=== PATIENT | female | born 1940 | race Caucasian/White ===

== ENCOUNTER 2023-03-28 14:35 | Emergency (ER) | payer MEDICARE, BC, SELFPAY ==
[2023-03-28 14:39] VITALS: BP 193/66; BMI 23.4
[2023-03-28 14:42] VITALS: BP 193/66
[2023-03-28 14:54] LABS: % Basophils 0.7 % (0-2); % Eosinophils 3.8 % (0-6); % Immature Granulocytes 0.3 % (0-0.5); % Lymphocytes 20.6 % (20.5-51.1); % Monocytes 9.7 % (1.7-9.3); % Neutrophils 64.9 % (42.2-75.2); Absolute Basophils 0.1 10^3/uL (0-0.2); Absolute Eosinophils 0.3 10^3/uL (0-0.7); Absolute Lymphocytes 1.5 10^3/uL (1.2-3.4); Absolute Monocytes 0.7 10^3/uL (0.1-0.6); Absolute Neutrophils 4.6 10^3/uL (1.4-6.5); Hematocrit 42.1 % (37.0-47.0); Hemoglobin 14.1 g/dL (12.0-16.0); Mean Corp Hgb Conc. 33.5 g/dL (33.0-37.0); Mean Corpuscular Hgb 33.8 pg (27.0-31.0); Nucleated Red Blood Cells % 0 %; Platelet Count 173 10^3/uL (130-400); Red Blood Cell Count 4.17 10^6/uL (4.20-5.40); Red Cell Dist. Width 12.7 % (11.5-14.5); White Blood Cell Count 7.1 10^3/uL (4.8-10.8)
[2023-03-28 15:00] VITALS: BP 189/85
[2023-03-28 15:08] LABS: ALT (SGPT) 14 U/L (0-35); AST (SGOT) 30 U/L (14-36); Albumin 3.6 g/dl (3.5-5.0); Alkaline Phosphatase 88 U/L (38-126); Blood Urea Nitrogen 28 mg/dl (7-17); Carbon Dioxide 32 mmol/L (22-30); Chloride 105 mmol/L (98-107); Estimated Creatinine Clearance 49 ml/min; Glucose 90 mg/dl (70-99); Potassium 4.2 mmol/L (3.5-5.1); Sodium 137 mmol/L (135-145); Total Bilirubin 0.5 mg/dl (0.2-1.3); eGFR > 60.00
[2023-03-28 17:43] VITALS: BP 169/64
[2023-03-28 18:00] VITALS: BP 163/55
--- NOTE | 2023-03-28 18:18 | ED.GENMED ---
History of Present Illness
General
Chief Complaint: Fall
Source: patient and family
Exam Limitations: none
Time Seen by Provider: 03/28/23 16:13
Nursing documentation reviewed up to this point in time: agreed with
Travel History
Have you had any contact with someone who has COVID-19?: No
Do you have any symptoms of coronavirus? Fever > 100 degrees, chills, cough, shortness of breath, sore throat, loss of taste or smell, muscle aches, or headache?: No
History of Present Illness
History of Present Illness:
83-year-old female past medical history of dementia, A-fib currently on Eliquis, hypertension presenting to the emergency department today after a fall. She is not able to explain the event or explain how she fell. This was not specifically
witnessed. She denies any specific awareness of any dizziness lightheadedness or loss of consciousness. She does not believe she hit her head and denies any current pain. Apparently did complain of some mild back pain initially but no longer has
ongoing discomfort.
Past History
Past History
ED Past Medical History: Arrthythmia and HTN
ED Past Surgical History: Cardiac, Gynecological and Orthopedic
Social History
Tobacco: Non-smoker
Alcohol: None
Drug: None
Personal:
Living: with family
Review of Systems
Review of Systems
Allergies reviewed?: Yes
All Other Systems: ROS reviewed and negative except as documented in HPI and ROS
Phy Exam
Physical Exam
Physical Exam:
GENERAL: Alert , in no apparent distress
EYE: pupils equal and reactive
NECK: Supple, no significant adenopathy.
ENT: o/p clr, mmm.
CARDIAC: Regular rate and rhythm .
LUNGS: Clear breath sounds bilaterally, no acute respiratory distress, no wheezes/rales/rhonchi
ABDOMEN: Soft, without focal tenderness, no r/g, no cvat
NEUROLOGICAL: Alert and oriented, no focal neuro deficits 5-5 upper and lower extremity strength normal sensation when palpating bilaterally normal finger-nose and [id number] no pronator
SKIN: Warm and dry, skin intact.
MUSCULOSKELETAL: No edema, well perfused.
PSYCH: Normal and appropriate interaction.
Course
Orders/Labs/Results
Orders:
Orders
03/28/23 14:45
Electrocardiogram (*1) Urgent
Reason for Study: Vertigo / Dizzy
03/28/23 14:46
EKG- Treatment ONCE
03/28/23 14:48
Complete Blood Count/With Diff Urgent
Comprehensive Metabolic Panel Urgent
03/28/23 15:48
Lumbar Spine, 2 or 3 View [CR Lumbar Spine 2 Or 3 Views] Urgent
Comment:
Reason For Exam: fall
03/28/23 17:00
CT Head W/o Iv Contrast Urgent
Comment:
Reason For Exam: fall hit head on eliquis
Abnormal Lab Results
03/28/23
14:48
RBC 4.17 L 10^6/uL
(4.20-5.40)
MCV 101.0 H fL
(81.0-99.0)
MCH 33.8 H pg
(27.0-31.0)
Absolute Monos (auto) 0.7 H 10^3/uL
(0.1-0.6)
Monocytes % 9.7 H %
(1.7-9.3)
Carbon Dioxide 32 H mmol/L
(22-30)
BUN 28 H mg/dl
(7-17)
Total Protein 6.0 L g/dl
(6.3-8.2)
03/28/23 14:48
03/28/23 14:48
Vital Signs
Initial and Last Documented VS:
Initial Vital Signs
Temp Pulse Resp BP Pulse Ox
97.9 F 59 13 193/66 94
03/28/23 14:39 03/28/23 14:39 03/28/23 14:39 03/28/23 14:39 03/28/23 14:39
Last Documented Vital Signs
Temp Pulse Resp BP Pulse Ox
97.9 F 51 24 189/85 94
03/28/23 14:39 03/28/23 15:45 03/28/23 15:45 03/28/23 15:00 03/28/23 15:45
MDM/Problems Addressed
MDM/Problems Addressed:
83-year-old female presenting to the emergency department today with concerns of a fall prior to arrival. Initially complained of low back pain but during my examination no concerns. Is on Eliquis for A-fib. No obvious signs of trauma to the head
but CT scan was ordered for further assessment. Labs are unremarkable other than elevated BUN to creatinine ratio. She was able to tolerate by mouth and something to drink. X-ray of the lumbar spine without acute fracture. EKG not emergent. CT
head resulted without emergent findings. Patient without obvious emergent injury stable for outpatient management return precautions given.
*Critical Care Note
Total Time (30-74mins, 75-104mins- exclusive of procedures): Not Applicable
ED Attending Note
-
Portions of this chart may have been created with voice recognition software.� Occasional wrong word or��sound alike� substitutions may have occurred due to the inherent limitations of voice recognition software.
Discharge Plan
Departure
Patient Disposition: Home (Routine Discharge)
Date of Disposition: 03/28/23
Time of Disposition: 18:46
Patient with high blood pressure during this ER visit?: No
Condition: Good
Covid-19: Not Applicable
Discharge Problem:
Fall
Instructions: Preventing falls in adults
Prescriptions:
No Action
amlodipine 5 MG tablet
5 mg PO DAILY
nkthhlhc-lvi-obek-FA-vit K-lut [Centrum Silver Women] 1 EACH tablet
1 ea PO DAILY
tramadol 50 MG tablet
50 mg PO Q6HPRN PRN (Reason: moderate pain)
docusate sodium 100 MG capsule
100 mg PO BID 0RF
prednisone 10 MG tablet
10 mg PO .TAPER Qty: 10 0RF
Rx Instructions:
Take 40mg daily x1days, 30mg daily x1days,
20mg daily x1days, 10mg daily x1days.
Referrals:
Arnold Mchugh MD [Family Provider] -
Activity Restrictions/Additional Instructions:
You came to the emergency department today after a fall. Here you had a CT scan without emergent findings and labs that were unremarkable. You also had an x-ray of your low back that did not show emergent findings. Return to emergency department
for any worsening, new or concerning symptoms.
Interventions
Interventions:
*Risk Screen - Suicide Last Done: 03/28/23 14:39
*General Assessment Last Done: 03/28/23 14:39
*Neglect/Abuse Screening Last Done: 03/28/23 14:39
ED- Fall Risk Assessment Last Done: 03/28/23 14:46
*ED COVID-19 Vaccine History Last Done: 03/28/23 14:39
ED-Musculoskeletal Assessment Last Done: 03/28/23 14:46
ED- Neurological Assessment Last Done: 03/28/23 14:46
ED-Skin Assessment Last Done: 03/28/23 14:46
== END 2023-03-28 19:51 | disposition home or self-care (01) ==
LOC: EMR 14:35
PROVIDERS: Emergency Medicine; EMERGENCY PHYSICIAN Emergency Medicine; FAMILY PHYSICIAN Family Medicine
DX: M54.9 Dorsalgia, unspecified (principal); W19.XXXA Unspecified fall, initial encounter; Y92.129 Unspecified place in nursing home as the place of occurrence of the external cause; R42 Dizziness and giddiness; I48.91 Unspecified atrial fibrillation; Z79.01 Long term (current) use of anticoagulants; F03.90 Unspecified dementia, unspecified severity, without behavioral disturbance, psychotic disturbance, mood disturbance, and anxiety
CPT/HCPCS: 99285; 70450; 72100; 80053; 85025; 93005

== ENCOUNTER → 2023-07-15 09:00 | Outpatient (REF) | payer MEDICARE, BC, SELFPAY ==
[2023-07-16 11:45] LABS: Urine Albumin Trace (Neg - Trace); Urine Bilirubin Negative (Negative); Urine Character Slightly Cloudy (Clear); Urine Color Yellow; Urine Glucose Negative (Negative); Urine Ketone Trace (Negative); Urine Leukocyte Trace (Negative); Urine Nitrite Negative (Negative); Urine Occult Blood Negative (Negative); Urine Specific Gravity 1.025 (<1.030); Urine Urobilinogen Negative (Neg - 1+)
[2023-07-16 12:00] LABS: Urine Calcium Oxalate Crystals Present; Urine Squamous Cell 26-30 /LPF (Few)
[2023-07-16 12:01] LABS: Urine Bacteria Few (Negative)
[2023-07-16 12:02] LABS: Urine Red Blood Cell 0-2 /HPF (0-2)
== END ==
LOC: OLABLV 09:00
PROVIDERS: ATTENDING PHYSICIAN Family Medicine
DX: N39.0 Urinary tract infection, site not specified (principal)
CPT/HCPCS: 36415; 81003; 81015; 87086

== ENCOUNTER → 2023-08-10 15:00 | Outpatient (REF) | payer MEDICARE, BC, SELFPAY ==
[2023-08-11 12:46] LABS: Urine Albumin Trace (Neg - Trace); Urine Bilirubin Negative (Negative); Urine Character Clear (Clear); Urine Color Yellow; Urine Glucose Negative (Negative); Urine Ketone Trace (Negative); Urine Leukocyte Trace (Negative); Urine Nitrite Negative (Negative); Urine Occult Blood Negative (Negative); Urine Urobilinogen Negative (Neg - 1+)
[2023-08-11 13:55] LABS: Urine Calcium Oxalate Crystals Seen; Urine Mucus Moderate
[2023-08-11 13:57] LABS: Urine Bacteria Moderate (Negative); Urine Red Blood Cell 0-2 /HPF (0-2)
[2023-08-11 13:58] LABS: Urine Squamous Cell 21-25 /LPF (Few)
== END ==
LOC: OLABLV 15:00
PROVIDERS: ATTENDING PHYSICIAN Family Medicine
DX: R35.0 Frequency of micturition (principal)
CPT/HCPCS: 81003; 81015; 87086

== ENCOUNTER 2023-08-22 23:16 | Emergency (ER) | payer MEDICARE, BC, SELFPAY ==
[2023-08-22 23:20] VITALS: BP 192/92
--- NOTE | 2023-08-23 00:21 | ED.GENMED ---
History of Present Illness
General
Chief Complaint: Fall
Time Seen by Provider: 08/23/23 00:17
History of Present Illness
History of Present Illness:
HPI: The patient came in from alf facility for evaluation after an unwitnessed fall. She is is reportedly at her baseline mental status. She is reportedly at baseline mental status. The patient has no specific complaints.
EXAM:
GENERAL: Well appearing in no distress
CERVICAL SPINE: No midline c-spine tenderness with excellent AROM
HEAD: No evidence of craniofacial trauma
CHEST: No chest wall tenderness, normal heart sounds
LUNGS: Equal lung sounds, no respiratory distress
ABDOMEN: No abdominal tenderness, no peritoneal signs
EXTREMITIES: Normal active range of motion, no tenderness however there does appear to be some decreased active range of motion at the left shoulder but there is no bony tenderness to palpation, there is no pain with passive range of motion of the
hips
NEURO: Fair strength all extremities, appears to have cognitive communication deficit
TIME OF INITIAL ENCOUNTER: 12:20 AM
NUMBER AND COMPLEXITY OF PROBLEMS ADDRESSED AT THE ENCOUNTER
� Chronic conditions affecting care: A-fib on Eliquis, high blood pressure
� Acute Exacerbation and/or Progression of Chronic Illness: This is an acute problem
� Differential Diagnosis includes: Fall without injury, minor head injury, intracranial hemorrhage, doubt fracture based on physical examination
AMOUNT AND/OR COMPLEXITY OF DATA TO BE REVIEWED AND ANALYZED
� I performed an independent evaluation of and my interpretation is:
EKG:
CT: CT imaging reviewed, cochlear implant noted leading to streak artifact however otherwise there is no definite intracranial hemorrhage
X-rays:
Laboratory Studies: Not indicated
Other:
� Review of other/old records: The patient was also seen here 5 months ago after a fall
� Clinical information was obtained by an independent historian: I spoke to the charge nurse who spoke to EMS he received report from [facility]
� Prescriptions/Medications Considered but not given:
� Further testing considered but not performed: Considered x-rays however the patient has fairly good active range of motion with no bony tenderness of the extremities
RISK OF COMPLICATIONS AND/OR MORBIDITY OR MORTALITY OF PATIENT MANAGEMENT
� Social determinants of health affecting care: Resides at a alf facility
� Discussion with other providers: None needed
� Escalation of care including admission/observation vs risk of discharge considered: Given patient's age along with being on Eliquis and the fact that she is a poor historian, CT imaging of the brain is obtained which was
unremarkable. On reassessment at 1:50 AM, there is been no change in clinical status.
Past History
Past History
ED Past Medical History: Arrthythmia and HTN
ED Past Surgical History: Cardiac, Gynecological and Orthopedic
Social History
Tobacco: Non-smoker
Alcohol: None
Drug: None
Personal:
Living: with family
Phy Exam
Physical Exam
Physical Exam:
See HPI
Course
Orders/Labs/Results
Orders:
Orders
08/23/23 00:21
CT Head W/o Iv Contrast Urgent
Comment:
Reason For Exam: georgemihaela, poor historian, ?head injury
Vital Signs
Initial and Last Documented VS:
Initial Vital Signs
Temp Pulse Resp BP Pulse Ox
97.5 F 78 12 192/92 97
08/22/23 23:20 08/22/23 23:20 08/22/23 23:20 08/22/23 23:20 08/22/23 23:20
Last Documented Vital Signs
Temp Pulse Resp BP Pulse Ox
97.5 F 71 13 192/92 97
08/22/23 23:20 08/23/23 01:15 08/23/23 01:15 08/22/23 23:20 08/22/23 23:20
*Critical Care Note
Total Time (30-74mins, 75-104mins- exclusive of procedures): Not Applicable
ED Attending Note
-
Portions of this chart may have been created with voice recognition software.� Occasional wrong word or��sound alike� substitutions may have occurred due to the inherent limitations of voice recognition software.
Discharge Plan
Departure
Patient Disposition: Home (Routine Discharge)
Date of Disposition: 08/23/23
Time of Disposition: 01:44
Patient with high blood pressure during this ER visit?: Yes
Discharge Problem:
Fall
Instructions: BLOOD PRESSURE
Prescriptions:
No Action
amlodipine 5 MG tablet
5 mg PO DAILY
fwyjnmpt-yyp-qdfy-FA-vit K-lut [Centrum Silver Women] 1 EACH tablet
1 ea PO DAILY
tramadol 50 MG tablet
50 mg PO Q6HPRN PRN (Reason: moderate pain)
docusate sodium 100 MG capsule
100 mg PO BID 0RF
prednisone 10 MG tablet
10 mg PO .TAPER Qty: 10 0RF
Rx Instructions:
Take 40mg daily x1days, 30mg daily x1days,
20mg daily x1days, 10mg daily x1days.
Referrals:
Arnold Mchugh MD [Family Provider] -
Activity Restrictions/Additional Instructions:
As there was a fall on a blood thinner, CAT scan of the brain was obtained�this shows no sign of bleeding. Blood pressure was high at 192/92�I recommend repeat blood pressure check. Follow-up with primary care doctor.
Interventions
Interventions:
*Risk Screen - Suicide Last Done: 08/22/23 23:20
*General Assessment Last Done: 08/22/23 23:20
*Neglect/Abuse Screening Last Done: 08/22/23 23:20
ED- Fall Risk Assessment Last Done: 08/23/23 01:27
*ED COVID-19 Vaccine History Last Done: 08/22/23 23:20
ED-Musculoskeletal Assessment Last Done: 08/22/23 23:55
ED- Neurological Assessment Last Done: 08/22/23 23:40
ED-Skin Assessment Last Done: 08/23/23 01:26
Discharge Date and Time
Print Language: KIS[place]HILI
[2023-08-23 03:05] VITALS: BP 172/75
== END 2023-08-23 03:25 | disposition home or self-care (01) ==
LOC: EMR 23:16
PROVIDERS: EMERGENCY PHYSICIAN Emergency Medicine; FAMILY PHYSICIAN Family Medicine
DX: S09.90XA Unspecified injury of head, initial encounter (principal); W19.XXXA Unspecified fall, initial encounter; I10 Essential (primary) hypertension; I48.91 Unspecified atrial fibrillation; Z79.01 Long term (current) use of anticoagulants
CPT/HCPCS: 99284; 70450

== ENCOUNTER → 2023-08-24 15:00 | Outpatient (REF) | payer MEDICARE, BC, SELFPAY ==
[2023-08-25 11:17] LABS: Urine Albumin Negative (Neg - Trace); Urine Bilirubin Negative (Negative); Urine Character Clear (Clear); Urine Color Yellow; Urine Glucose Negative (Negative); Urine Ketone Trace (Negative); Urine Leukocyte Trace (Negative); Urine Nitrite Negative (Negative); Urine Occult Blood Negative (Negative); Urine Specific Gravity 1.025 (<1.030); Urine Urobilinogen Negative (Neg - 1+)
[2023-08-25 12:06] LABS: Urine Calcium Oxalate Crystals Present
[2023-08-25 12:07] LABS: Urine Bacteria Few (Negative); Urine Red Blood Cell 0-2 /HPF (0-2)
== END ==
LOC: OLABLV 15:00
PROVIDERS: ATTENDING PHYSICIAN Nurse Practitioner Family
DX: N39.0 Urinary tract infection, site not specified (principal)
CPT/HCPCS: 81003; 81015; 87086

== ENCOUNTER 2023-09-04 19:44 | Emergency (ER) | payer MEDICARE, BC, SELFPAY ==
[2023-09-04 19:51] VITALS: BP 179/63
[2023-09-04 20:00] VITALS: BP 165/67; BP 179/63
[2023-09-04 21:00] VITALS: BP 141/57
[2023-09-04 21:50] LABS: % Basophils 0.8 % (0-2); % Eosinophils 2.3 % (0-6); % Immature Granulocytes 0.1 % (0-0.5); % Lymphocytes 23.9 % (20.5-51.1); % Monocytes 11.3 % (1.7-9.3); % Neutrophils 61.6 % (42.2-75.2); Absolute Basophils 0.1 10^3/uL (0-0.2); Absolute Eosinophils 0.2 10^3/uL (0-0.7); Absolute Lymphocytes 1.8 10^3/uL (1.2-3.4); Absolute Monocytes 0.9 10^3/uL (0.1-0.6); Absolute Neutrophils 4.7 10^3/uL (1.4-6.5); Hematocrit 38.4 % (37.0-47.0); Hemoglobin 13.1 g/dL (12.0-16.0); Mean Corp Hgb Conc. 34.1 g/dL (33.0-37.0); Mean Corpuscular Volume 102.7 fL (81.0-99.0); Mean Platelet Volume 9.7 fL (7.4-10.4); Nucleated Red Blood Cells % 0 %; Platelet Count 173 10^3/uL (130-400); Red Blood Cell Count 3.74 10^6/uL (4.20-5.40); Red Cell Dist. Width 12.8 % (11.5-14.5); White Blood Cell Count 7.5 10^3/uL (4.8-10.8)
[2023-09-04 22:17] LABS: Blood Urea Nitrogen 24 mg/dl (7-17); Calcium 9.2 mg/dl (8.4-10.2); Carbon Dioxide 30 mmol/L (22-30); Chloride 103 mmol/L (98-107); Creatine Phosphokinase 58 U/L (30-135); Estimated Creatinine Clearance 38 ml/min; Glucose 90 mg/dl (70-99); Potassium 4.2 mmol/L (3.5-5.1); Sodium 138 mmol/L (135-145); eGFR > 60.00
--- NOTE | 2023-09-04 22:57 | ED.GENMED ---
History of Present Illness
General
Chief Complaint: Fall
Source: patient
Exam Limitations: none
Time Seen by Provider: 09/04/23 20:14
Nursing documentation reviewed up to this point in time: agreed with
History of Present Illness
History of Present Illness:
83-year-old female with past ministry of A-fib currently on Eliquis as well as hypertension presenting to the emergency department from her nursing facility after multiple falls may have hit her head was found to the ground today and may have been
on the ground for an hour. She denies any additional concerns at this point. No additional symptoms.
Past History
Past History
ED Past Medical History: Arrthythmia and HTN
ED Past Surgical History: Cardiac, Gynecological and Orthopedic
Social History
Tobacco: Non-smoker
Alcohol: None
Drug: None
Personal:
Living: with family
Review of Systems
Review of Systems
Allergies reviewed?: Yes
All Other Systems: ROS reviewed and negative except as documented in HPI and ROS
Phy Exam
Physical Exam
Physical Exam:
GENERAL: Alert , in no apparent distress
EYE: pupils equal and reactive
NECK: Supple, no significant adenopathy.
ENT: o/p clr, mmm.
CARDIAC: Regular rate and rhythm .
LUNGS: Clear breath sounds bilaterally, no acute respiratory distress, no wheezes/rales/rhonchi
ABDOMEN: Soft, without focal tenderness, no r/g, no cvat
NEUROLOGICAL: Alert and oriented, no focal neuro deficits
SKIN: Warm and dry, skin intact.
MUSCULOSKELETAL: No edema, well perfused.
PSYCH: Normal and appropriate interaction.
Course
Orders/Labs/Results
Orders:
Orders
09/04/23 21:21
CT Head W/o Iv Contrast Urgent
Comment:
Reason For Exam: fall hit head
09/04/23 21:37
BMP [Basic Metabolic Panel] Urgent
CBC/With Diff [Complete Blood Count/With Diff] Urgent
Creatine Phosphokinase Urgent
Abnormal Lab Results
09/04/23
21:37
RBC 3.74 L 10^6/uL
(4.20-5.40)
MCV 102.7 H fL
(81.0-99.0)
MCH 35.0 H pg
(27.0-31.0)
Absolute Monos (auto) 0.9 H 10^3/uL
(0.1-0.6)
Monocytes % 11.3 H %
(1.7-9.3)
BUN 24 H mg/dl
(7-17)
09/04/23 21:37
09/04/23 21:37
Vital Signs
Initial and Last Documented VS:
Initial Vital Signs
Pulse Resp BP
66 27 179/63
09/04/23 19:51 09/04/23 19:51 09/04/23 19:51
Last Documented Vital Signs
Temp Pulse Resp BP Pulse Ox
97.6 F 63 22 141/57 94
09/04/23 20:00 09/04/23 22:30 09/04/23 22:30 09/04/23 21:00 09/04/23 22:01
MDM/Problems Addressed
MDM/Problems Addressed:
84-year-old female presenting to the emergency department after a few falls at her nursing facility. She has known ambulatory dysfunction and is supposed to be escorted when walking but has been walking on her own. She denies any specific
complaints upon arrival to the ER. She may have hit her head CT scan was ordered and did not show any emergent findings. Labs without emergent findings as well stable for discharge at this time return precautions given.
*Critical Care Note
Total Time (30-74mins, 75-104mins- exclusive of procedures): Not Applicable
ED Attending Note
-
Portions of this chart may have been created with voice recognition software.� Occasional wrong word or��sound alike� substitutions may have occurred due to the inherent limitations of voice recognition software.
Discharge Plan
Departure
Patient Disposition: Home (Routine Discharge)
Date of Disposition: 09/04/23
Time of Disposition: 22:59
Patient with high blood pressure during this ER visit?: No
Condition: Good
Covid-19: Not Applicable
Discharge Problem:
Fall
Instructions: Preventing falls in adults
Prescriptions:
No Action
amlodipine 5 MG tablet
5 mg PO DAILY
kyuiansn-vze-zfnk-FA-vit K-lut [Centrum Silver Women] 1 EACH tablet
1 ea PO DAILY
tramadol 50 MG tablet
50 mg PO Q6HPRN PRN (Reason: moderate pain)
docusate sodium 100 MG capsule
100 mg PO BID 0RF
prednisone 10 MG tablet
10 mg PO .TAPER Qty: 10 0RF
Rx Instructions:
Take 40mg daily x1days, 30mg daily x1days,
20mg daily x1days, 10mg daily x1days.
Eliquis 5 mg Tablet
5 mg PO BID
Referrals:
Arnold Mchugh MD [Family Provider] -
Activity Restrictions/Additional Instructions:
You came to the emergency department today with concerns of multiple falls. Here you to reassuring assessment. Return to the emergency department for any worsening, new or concerning symptoms.
Interventions
Interventions:
*Risk Screen - Suicide Last Done: 09/04/23 19:48
*General Assessment Last Done: 09/04/23 19:48
*Neglect/Abuse Screening Last Done: 09/04/23 19:48
ED- Fall Risk Assessment Last Done: 09/04/23 19:50
*ED COVID-19 Vaccine History Last Done: 09/04/23 19:48
ED-Musculoskeletal Assessment Last Done: 09/04/23 19:50
ED- Neurological Assessment Last Done: 09/04/23 19:50
ED-Skin Assessment Last Done: 09/04/23 19:50
Discharge Date and Time
Print Language: TAMAZIGHT
[2023-09-04 23:20] VITALS: BP 146/64
== END 2023-09-04 23:25 | disposition home or self-care (01) ==
LOC: EMR 19:44
PROVIDERS: Physician Assistant; EMERGENCY PHYSICIAN Emergency Medicine; FAMILY PHYSICIAN Family Medicine
DX: S09.90XA Unspecified injury of head, initial encounter (principal); W19.XXXA Unspecified fall, initial encounter; I10 Essential (primary) hypertension; I48.91 Unspecified atrial fibrillation; R29.6 Repeated falls; Z79.01 Long term (current) use of anticoagulants
CPT/HCPCS: 99284; 70450; 80048; 82550; 85025

== ENCOUNTER 2023-09-17 20:42 | Emergency (ER) | payer MEDICARE, BC, SELFPAY ==
[2023-09-17 20:43] VITALS: BP 186/66
[2023-09-17 20:47] VITALS: BP 186/66
[2023-09-17 21:00] VITALS: BP 165/65
--- NOTE | 2023-09-17 21:36 | ED.GENMED ---
History of Present Illness
General
Chief Complaint: Fall
Source: records
Exam Limitations: dementia
Time Seen by Provider: 09/17/23 20:58
History of Present Illness
History of Present Illness:
Unwitnessed fall. Found on the floor. Patient is unsure what happened and has no complaints. No physical findings noticed by the staff or nursing staff. Here for evaluation. Is on Eliquis
Past History
Past History
ED Past Medical History: Arrthythmia and HTN
ED Past Surgical History: Cardiac, Gynecological and Orthopedic
Social History
Tobacco: Non-smoker
Alcohol: None
Drug: None
Personal:
Living: with family
Review of Systems
Review of Systems
Unable to obtain full review of systems at this time due to: dementia
All Other Systems: Not applicable
Phy Exam
Physical Exam
Physical Exam:
TRAUMA EXAM:
VITAL SIGNS: Vital signs reviewed, cooperative
DISTRESS: No active disease
EYES: Pupils reactive, no orbital trauma
NOSE: No deformity or epistaxis
FACE AND SCALP: No scalp or facial trauma, external canals no blood
NECK: Supple nontender
BACK: Back nontender, pelvis stable to compression
RESPIRATORY: No distress, breath sounds normal, no tender chest wall
CARDIAC: No murmur, pulses equal and strong
ABDOMEN: Soft nontender bowel sounds normal
SKIN: Skin intact no bleeding, color normal
EXTREMITIES: Nontender
NEUROLOGICAL: Alert, oriented x 1, no motor deficits
PSYCH: Mood affect normal
Course
Orders/Labs/Results
Orders:
Orders
09/17/23 21:06
CT Head W/o Iv Contrast Urgent
Comment:
Reason For Exam: Fall. Anticoagulated
Cardiac Monitoring- Treatment ONCE
Vital Signs
Initial and Last Documented VS:
Initial Vital Signs
Temp Pulse Resp BP Pulse Ox
97.6 F 58 24 186/66 90
09/17/23 20:43 09/17/23 20:43 09/17/23 20:43 09/17/23 20:43 09/17/23 20:43
Last Documented Vital Signs
Temp Pulse Resp BP Pulse Ox
97.6 F 66 16 186/66 95
09/17/23 20:43 09/17/23 20:47 09/17/23 20:47 09/17/23 20:47 09/17/23 20:47
MDM/Problems Addressed
Differential Diagnosis Includes:
Nothing to support any acute medical trauma or issue. CT was done as this was an unknown fall and patient is on Eliquis. Stable for discharge
*Radiology
Radiology exam reviewed: preliminary read by ED provider (neg) and radiology read reviewed (neg)
*Critical Care Note
Total Time (30-74mins, 75-104mins- exclusive of procedures): Not Applicable
Data Reviewed
Review of Other/Old Records Reveals: Labs and Testing
Update Note
Update Note:
Patient's daughter updated. Remained stable. No findings to support any significant trauma. Regular rate and rhythm.
ED Attending Note
-
Portions of this chart may have been created with voice recognition software.� Occasional wrong word or��sound alike� substitutions may have occurred due to the inherent limitations of voice recognition software.
Discharge Plan
Departure
Patient Disposition: Home (Routine Discharge)
Date of Disposition: 09/17/23
Time of Disposition: 21:39
Patient with high blood pressure during this ER visit?: Yes
Discharge Problem:
Unwitnessed fall, Potential head injury
Instructions: Head Injury in Adults (DC), Preventing falls in adults, BLOOD PRESSURE
Prescriptions:
No Action
tramadol 50 MG tablet
50 mg PO Q8HPRN PRN (Reason: moderate pain)
quetiapine 25 mg Tablet
25 mg PO DAILY
haloperidol 0.5 mg Tablet
0.5 mg PO DAILY@1400
haloperidol 0.5 mg Tablet
0.5 mg PO DAILYPRN PRN (Reason: agitation/combativness/acute uti)
acetaminophen 325 mg Tablet
650 mg PO Q8HPRN PRN (Reason: mild pain)
acetaminophen 500 mg Tablet
1,000 mg PO DAILY
escitalopram oxalate 20 mg tablet
20 mg PO DAILY
metoprolol tartrate 25 mg Tablet
25 mg PO BID
multivitamin with folic acid [Therems Multivitamin] 400 mcg Tablet
1 tab PO DAILY
apixaban 2.5 mg Tablet
2.5 mg PO BID
Activity Restrictions/Additional Instructions:
Follow-up with her physician in 2 to 3 days
Return with any concerning symptoms including vomiting chest pain abdominal pain or any other concerning symptoms
Interventions
Interventions:
*Risk Screen - Suicide Last Done: 09/17/23 20:43
*General Assessment Last Done: 09/17/23 20:43
*Neglect/Abuse Screening Last Done: 09/17/23 20:43
ED- Fall Risk Assessment Last Done: 09/17/23 20:43
*ED COVID-19 Vaccine History Last Done: 09/17/23 20:43
ED-Musculoskeletal Assessment Last Done: 09/17/23 20:52
ED- Neurological Assessment Last Done: 09/17/23 20:51
ED-Skin Assessment Last Done: 09/17/23 20:52
Discharge Date and Time
Print Language: AMERICAN
== END 2023-09-18 00:09 | disposition home or self-care (01) ==
LOC: EMR 20:42
PROVIDERS: EMERGENCY PHYSICIAN Emergency Medicine; FAMILY PHYSICIAN Family Medicine
DX: S09.90XA Unspecified injury of head, initial encounter (principal); W19.XXXA Unspecified fall, initial encounter; I10 Essential (primary) hypertension; Z79.01 Long term (current) use of anticoagulants
CPT/HCPCS: 99284; 70450

== ENCOUNTER 2023-09-21 21:10 | Emergency (ER) | payer MEDICARE, BC, SELFPAY ==
[2023-09-21 21:11] VITALS: BP 172/80
--- NOTE | 2023-09-21 22:59 | ED.GENMED ---
History of Present Illness
<JAYY Hernandez (Lenka) - Last Filed: 09/22/23 02:59>
General
Chief Complaint: Fall
Source: patient and family (daughter (Nia))
Exam Limitations: dementia
Time Seen by Provider: 09/21/23 22:38
Nursing documentation reviewed up to this point in time: agreed with
History of Present Illness
History of Present Illness:
Pt is an 83 yo female with PMHx of dementia, HTN, AFib on eliquis, and renal failure who presents to the ED with daughter, Nia, after an unwitnessed fall at [address] [facility]. 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
patient responsive, but on the ground in her room, unknown for how long. Earlier this morning prior to 1200, pt experienced a witnessed mechanical fall with staff where she landed on her backside. Daughter notes that patient is at baseline mental
status, no obvious changes to level of consciousness. Pt given dose of Haldol prior to arrival in the ED. Patient complained to daughter of R thumb pain, thumb noticeably swollen and bruised compared to L thumb. Daughter also notes large bruise to
left hip and 'goose egg' lump that is not usually there, pt noting pain to L hip. Pt denies chest pain, difficulty breathing, abdominal pain. Daughter denies known fevers, recent sickness, or problems with urination.
Of note - recent unwitnessed falls on 09/17/23, 09/04/23, and 08/23/23, all with negative findings on CT.
Pt recently started on Haldol PRN for nighttime agitation 2-3 weeks ago.
Daughter has noticed pt's ambulation and balance have declined over the past 3 weeks, to the point where she struggles to use a walker.
Pt has a history of elopement and desire to be independent, pt often refuses to use mobility devices, resulting in mechanical falls.
Past History
<JAYY Hernandez (Lenka) - Last Filed: 09/22/23 02:59>
Past History
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
ED Past Surgical History: Cardiac (cardiac ablation), Gynecological (hysterectomy) and Orthopedic (L rotator cuff, B/L foot surgery)
Social History
Tobacco: Non-smoker
Alcohol: None
Drug: None
Personal:
Living: long term
Family History
Family History: Other (noncontributory)
Phy Exam
<Lashay Tellez) JAYY Stern - Last Filed: 09/22/23 02:59>
General Physical Exam
General Presentation: no apparent distress
General age: appears stated age
General Skin: warm and dry
General Habitus: elderly
General Mental: confused and usual mental status
General Hydration: appears well hydrated
General Chronic Disability: demented
ENT Exam
ENT Exam: EOMI, TM's normal, neck supple and lymphnodes (nontender, not enlarged)
Eye Exam
Eye Exam: PERRL and EOMI
Cardiovascular Exam
Cardiovascular Exam: no edema, normal peripheral pulses and other
Pulmonary Exam
Pulmonary Exam: lungs clear, no respiratory distress, no rales, chest non tender, no rhonchi and no cough
Gastrointestinal Exam
Gastrointestinal Exam: normal bowel sounds, non tender, soft and non distended
Neurological Exam
Neurological Exam: confused
Osbaldo Coma Scale
Eye Opening: Spontaneous
Verbal Response: Confused
Motor Response: Localizes to Pain
GCS Total Score: 13
Mental
Mental Status: oriented to person, usual mental status and responds to voice
Cranial
EOM (CN3/4/6): intact
Motor
Seizure Activity: none
Skin Exam
Skin Exam: tenderness (to L hip, notable swelling and ecchymosis just inferior to L hip) and other (notable swelling and ecchymosis to R thumb from MCP to distal phalanx)
<Paul Rivera DO - Last Filed: 09/22/23 01:45>
Lenore Coma Scale
GCS Total Score: 13
Course
<JAYY Hernandez (Lenka) - Last Filed: 09/22/23 02:59>
Orders/Labs/Results
Orders:
Orders
09/21/23 23:03
CR Wrist - Right Min 3 Views Urgent
Comment:
Reason For Exam: fall
09/21/23 23:11
Hip, Left 2-3 Views [CR Hip - LT w/wo Pel 2-3 Vw*] Urgent
Comment:
Reason For Exam: fall
Include a pelvis x-ray?: Yes
09/21/23 23:54
CR Finger(s)/thumb Min 2 Vw Rt Urgent
Reason For Exam: pain
09/22/23 00:15
CT Head W/o Iv Contrast Urgent
Reason For Exam: fall, unknown head strike, dementia
CT Pelvis W/o Iv Contrast Urgent
Reason For Exam: left hip pain, likely fx
Vital Signs
Initial and Last Documented VS:
Initial Vital Signs
Temp Pulse Resp BP Pulse Ox
97.7 F 68 26 172/80 94
09/21/23 21:11 09/21/23 21:11 09/21/23 21:11 09/21/23 21:11 09/21/23 21:11
Last Documented Vital Signs
Temp Pulse Resp BP Pulse Ox
97.7 F 68 26 178/91 93
09/21/23 21:11 09/21/23 21:11 09/21/23 21:11 09/22/23 01:11 09/22/23 01:15
<Paul Rivera DO - Last Filed: 09/22/23 01:45>
Orders/Labs/Results
Orders:
Orders
09/21/23 23:03
CR Wrist - Right Min 3 Views Urgent
Comment:
Reason For Exam: fall
09/21/23 23:11
Hip, Left 2-3 Views [CR Hip - LT w/wo Pel 2-3 Vw*] Urgent
Comment:
Reason For Exam: fall
Include a pelvis x-ray?: Yes
09/21/23 23:54
CR Finger(s)/thumb Min 2 Vw Rt Urgent
Reason For Exam: pain
09/22/23 00:15
CT Head W/o Iv Contrast Urgent
Reason For Exam: fall, unknown head strike, dementia
CT Pelvis W/o Iv Contrast Urgent
Reason For Exam: left hip pain, likely fx
Vital Signs
Initial and Last Documented VS:
Initial Vital Signs
Temp Pulse Resp BP Pulse Ox
97.7 F 68 26 172/80 94
09/21/23 21:11 09/21/23 21:11 09/21/23 21:11 09/21/23 21:11 09/21/23 21:11
Last Documented Vital Signs
Temp Pulse Resp BP Pulse Ox
97.7 F 68 26 178/91 93
09/21/23 21:11 09/21/23 21:11 09/21/23 21:11 09/22/23 01:11 09/22/23 01:15
<JAYY Hernandez (Lenka) - Last Filed: 09/22/23 02:59>
MDM/Problems Addressed
Differential Diagnosis Includes:
83yo female with PMHx of dementia, HTN, and AFib on eliquis presenting for 2 falls today, 1 witnessed where patient landed on backside with possible new bruising and swelling near L hip, and 1 unwitnessed where patient was found on the floor at
1999. Pt now complaining of R thumb pain.
Pt started on haldol 2-3 weeks ago for agitation at long term, around the same time daughter noticed declined in walking abilities and balance. Pt with recent falls on 09/17/23, 09/04/23, and 08/23/23, all with negative CT head findings.
Plan to order head CT without contrast, XR of R hand, and XR of L hip.
Chronic conditions affecting care: Arrhythmia (on eliquis 2.5mg BID) and Psychiatric illness (dementia)
<JAYY Hernandez (Lenka) - Last Filed: 09/22/23 02:59>
*Critical Care Note
Total Time (30-74mins, 75-104mins- exclusive of procedures): Not Applicable
<Paul Rivera DO - Last Filed: 09/22/23 01:45>
Update Note
Update Note:
CT PELVIS WITHOUT CONTRAST
Comparison: None available
IMPRESSION:
6.1 x 4.6 cm subcutaneous hematoma in the lateral left hip soft tissues. Additional age indeterminate collection in the left upper buttock measuring approximately 9 x 2.5 cm, and may reflect additional hematoma versus sequela of prior trauma or
surgery.
Small ossification associated with lateral superior left acetabular osteophyte, age indeterminate (series 202, image 50). Otherwise, no evidence for acute fractures. No malalignment.
Hysterectomy. Colonic diverticulosis. Mild ectatic abdominal aorta.
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 Mild multilevel spondylolisthesis in the lumbar spine.
CT HEAD WITHOUT CONTRAST
Comparison: Head CT 09/17/2023
IMPRESSION:
Limited by streak artifacts from right scalp cochlear implant device.
Allowing for this, no definite evidence for acute intracranial hemorrhage.
Chronic encephalomalacia in the right occipital lobe. Moderate to severe chronic white matter disease.
ED Attending Note
<JAYY Hernandez (Lenka) - Last Filed: 09/22/23 02:59>
-
Portions of this chart may have been created with voice recognition software.� Occasional wrong word or��sound alike� substitutions may have occurred due to the inherent limitations of voice recognition software.
<Paul Rivera DO - Last Filed: 09/22/23 01:45>
ED Attending Note
Patient seen and examined by attending physician: Yes
I performed the substantive portion of visit, reviewed & personally made and approve the management plan that is documented in note by myself or DIEGO.: Yes
ED Attending Note:
Pleasant 83-year-old female presents from [place] after falling twice today. She landed on her left hip. Her only complaint is pain in her left thumb. Patient is on Eliquis but denies any head strike. Patient was seen in conjunction with the PA
student. I have reviewed and agree with the history and treatment plan presented. On my independent physical exam, patient is awake, and at baseline. Daughter states that she is deaf but able to read lips. Patient has a large hematoma to the
left hip. Normal hip rolling test. She is able to flex and extend the hip without issue. Right thumb is slightly deformed and painful to the touch. Good capillary refill.
Discharge Plan
Departure
Patient Disposition: Long-Term/SNF
Date of Disposition: 09/22/23
Time of Disposition: 01:42
Patient with high blood pressure during this ER visit?: Yes
Condition: Fair
Discharge Problem:
Hematoma, Fracture of thumb, Fall
Instructions: Preventing falls in adults, Finger Fracture ED, BLOOD PRESSURE, Contusion
Prescriptions:
No Action
tramadol 50 MG tablet
50 mg PO Q8HPRN PRN (Reason: moderate pain)
quetiapine 25 mg Tablet
25 mg PO DAILY
haloperidol 0.5 mg Tablet
0.5 mg PO DAILY@1400
haloperidol 0.5 mg Tablet
0.5 mg PO DAILYPRN PRN (Reason: agitation/combativness/acute uti)
acetaminophen 325 mg Tablet
650 mg PO Q8HPRN PRN (Reason: mild pain)
acetaminophen 500 mg Tablet
1,000 mg PO DAILY
escitalopram oxalate 20 mg tablet
20 mg PO DAILY
metoprolol tartrate 25 mg Tablet
25 mg PO BID
multivitamin with folic acid [Therems Multivitamin] 400 mcg Tablet
1 tab PO DAILY
apixaban 2.5 mg Tablet
2.5 mg PO BID
Beneprotein 6 gram-25 kcal/7 gram Powder In Packet
1 ea PO DAILY
Referrals:
Romi Garza CRNP [Family Provider] -
Rohan Stevenson MD [Active] - Call in 1-3 days for appt
Activity Restrictions/Additional Instructions:
It was a pleasure meeting you and taking part in your care. We hope for your continued healing and wellness.
Please read discharge instructions in their entirety. However, they are for general education and may not describe your exact diagnosis at discharge. Information on your ER visit and medical conditions were discussed with you along with appropriate
follow up information...
If indicated, please take your medications as instructed and indicated on discharge paperwork.
Please schedule a follow up appointment as directed. Call to schedule an appointment
Please return to the emergency department with ANY change in, persisting, or worsening of symptoms. If any of your symptoms do not improve, or persist, or become more severe within 6-12 hours, please return to the emergency department for further
care.
Please return to the emergency department if you develop a headache, neck pain/stiffness, fever greater than 100.4F, chest pain, shortness of breath, persistent nausea, vomiting, slurred speech, difficulty walking, numbness/tingling, weakness, signs
of infection or any other symptoms that are worrisome to you.
If you have any questions or concerns please do not hesitate to call the Hospital at or E-mail me directly at
Interventions
Interventions:
*Risk Screen - Suicide Last Done: 09/21/23 23:10
*General Assessment Last Done: 09/21/23 23:10
*Neglect/Abuse Screening Last Done: 09/21/23 23:10
ED- Fall Risk Assessment Last Done: 09/21/23 23:10
*ED COVID-19 Vaccine History Last Done: 09/21/23 23:10
*Nursing Disposition Last Done: 09/22/23 02:32
ED-Musculoskeletal Assessment Last Done: 09/21/23 23:10
ED- Neurological Assessment Last Done: 09/21/23 23:10
ED-Skin Assessment Last Done: 09/21/23 23:10
Discharge Date and Time
Discharge Date/Time: 09/22/23 02:35
Print Language: CHILEAN
[2023-09-21 23:08] VITALS: BP 169/70
[2023-09-21 23:09] VITALS: BMI 25.8
[2023-09-22 00:27] VITALS: BP 174/101
[2023-09-22 01:11] VITALS: BP 178/91
== END 2023-09-22 02:35 ==
LOC: EMR 21:10
PROVIDERS: EMERGENCY PHYSICIAN Student in an Organized Health Care Education/Training Program; FAMILY PHYSICIAN Nurse Practitioner Family
DX: S62.511A Displaced fracture of proximal phalanx of right thumb, initial encounter for closed fracture (principal); S30.0XXA Contusion of lower back and pelvis, initial encounter; S70.02XA Contusion of left hip, initial encounter; W19.XXXA Unspecified fall, initial encounter; F03.90 Unspecified dementia, unspecified severity, without behavioral disturbance, psychotic disturbance, mood disturbance, and anxiety; I10 Essential (primary) hypertension; I48.91 Unspecified atrial fibrillation; Z79.01 Long term (current) use of anticoagulants
CPT/HCPCS: 99285; 29125; 70450; 72192; 73110; 73140; 73502

== ENCOUNTER 2023-10-09 03:23 | Emergency (ER) | payer MEDICARE, BC, SELFPAY ==
[2023-10-09 03:28] VITALS: BP 180/81
--- NOTE | 2023-10-09 05:11 | ED.GENMED ---
History of Present Illness
<JAYY Hernandez (Lenka) - Last Filed: 10/09/23 06:07>
General
Chief Complaint: Fall
Source: patient
Exam Limitations: dementia
Time Seen by Provider: 10/09/23 05:10
History of Present Illness
History of Present Illness:
Pt is an 83 yo female with PMHx of dementia, HTN, AFib on eliquis, and renal failure who presents to the ED from [facility] after falling yesterday AM and again early this morning. During one fall staff found her on the floor wedged in the
bathroom, the other fall was witnessed by staff, pt hit head on bed frame/side table, was complaining of back pain at time of incident. Pt is extremely hard of hearing and has dementia, she presents at baseline mental status. Exam limited by pt's
difficulty hearing and confused state, attempted to ask questions via large text presented on phone screen. She denies neck, back, arm, leg, or chest pain. She has no recollection of falling. Able to move all extremities. Her only complaint is that
she is cold.
Cochlear implant to R ear.
Past History
<Lashay Tellez) JAYY Stern - Last Filed: 10/09/23 06:07>
Past History
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
ED Past Surgical History: Cardiac (cardiac ablation), Gynecological (hysterectomy) and Orthopedic (L rotator cuff, B/L foot surgery)
Social History
Tobacco: Non-smoker
Alcohol: None
Drug: None
Personal:
Living: [facility] ([facility] dementia [facility])
Family History
Family History: Other (noncontributory)
Phy Exam
<JAYY Hernandez (Lenka) - Last Filed: 10/09/23 06:07>
General Physical Exam
General Presentation: well appearing and no apparent distress
General age: appears stated age
General Skin: warm and dry
General Habitus: normal
General Mental: confused and usual mental status
General Hydration: appears well hydrated
ENT Exam
ENT Exam: EOMI and swallowing well
Eye Exam
Eye Exam: PERRL, EOMI and conjunctiva normal
Cardiovascular Exam
Cardiovascular Exam: regular rate/rhythm and normal peripheral pulses
Pulmonary Exam
Pulmonary Exam: lungs clear and no respiratory distress
Gastrointestinal Exam
Gastrointestinal Exam: normal bowel sounds, non tender, soft and non distended
Neurological Exam
Neurological Exam: alert, speech normal and confused
Musculoskeletal Exam
Musculoskeletal Exam: full ROM, back tenderness (to lower back R side with palpation) and other (R hip pain with palpation)
Skin Exam
Skin Exam: normal color, warm/dry and other (thumb spica cast (R side))
Psychiatric Exam
Psychiatric Exam: normal mood/affect
Course
<JAYY Hernandez (Lenka) - Last Filed: 10/09/23 06:07>
Orders/Labs/Results
Orders:
Orders
10/09/23 03:[address] [CT Head W/o Iv Contrast] Urgent
Comment:
Reason For Exam: fall+eliquis
10/09/23 06:04
CR Hip - RT w/wo Pel 2-3 Vw* Urgent
Comment:
Reason For Exam: acute R hip and low back pain after 2 falls
Include a pelvis x-ray?: Yes
CR Lumbar Spine Comp Min 4 Vw* Urgent
Comment:
Reason For Exam: acute lower back pain, 2 falls in 24h
Vital Signs
Initial and Last Documented VS:
Initial Vital Signs
Temp Pulse Resp BP Pulse Ox
98.4 F 79 16 180/81 99
10/09/23 03:28 10/09/23 03:28 10/09/23 03:28 10/09/23 03:28 10/09/23 03:28
Last Documented Vital Signs
Temp Pulse Resp BP Pulse Ox
98.4 F 79 16 180/81 99
10/09/23 03:28 10/09/23 03:28 10/09/23 06:00 10/09/23 03:28 10/09/23 03:28
<Ruth Fairbanks DO - Last Filed: 10/09/23 07:19>
Orders/Labs/Results
Orders:
Orders
10/09/23 03:[address] [CT Head W/o Iv Contrast] Urgent
Comment:
Reason For Exam: fall+eliquis
10/09/23 06:04
CR Hip - RT w/wo Pel 2-3 Vw* Urgent
Comment:
Reason For Exam: acute R hip and low back pain after 2 falls
Include a pelvis x-ray?: Yes
CR Lumbar Spine Comp Min 4 Vw* Urgent
Comment:
Reason For Exam: acute lower back pain, 2 falls in 24h
Vital Signs
Initial and Last Documented VS:
Initial Vital Signs
Temp Pulse Resp BP Pulse Ox
98.4 F 79 16 180/81 99
10/09/23 03:28 10/09/23 03:28 10/09/23 03:28 10/09/23 03:28 10/09/23 03:28
Last Documented Vital Signs
Temp Pulse Resp BP Pulse Ox
98.4 F 79 16 180/81 99
10/09/23 03:28 10/09/23 03:28 10/09/23 06:00 10/09/23 03:28 10/09/23 03:28
<JAYY Hernandez (Lenka) - Last Filed: 10/09/23 06:07>
MDM/Problems Addressed
Differential Diagnosis Includes:
Pt found sitting on bathroom floor, unsure if she hit her head or lost consciousness. She is on eliquis. Will obtain CT scan of head. Pt not complaining of any pain or vision changes. Speech normal. Able to move all limbs.Pt able to sit up with
assistance and support self in seated position. Complaints of R hip and R lower back pain with palpation. Will obtain R hip/pelvic XR and lumbar spine XR.
Chronic conditions affecting care: Arrhythmia (on eliquis 2.5 mg BID) and Psychiatric illness (dementia )
<JAYY Hernandez (Lenka) - Last Filed: 10/09/23 06:07>
*Critical Care Note
Total Time (30-74mins, 75-104mins- exclusive of procedures): Not Applicable
<Ruth Fairbanks DO - Last Filed: 10/09/23 07:19>
*Radiology
Radiology exam reviewed: preliminary read by ED provider (Right hip, pelvis and lumbar spine x-ray showed no evidence of acute fracture. Moderate lumbar DJD is noted.) and radiology read reviewed (CT of the head shows no acute traumatic findings.)
*Pulse Oximetry
Patient hypoxic: no
ED Attending Note
<JAYY Hernandez (Lenka) - Last Filed: 10/09/23 06:07>
-
Portions of this chart may have been created with voice recognition software.� Occasional wrong word or��sound alike� substitutions may have occurred due to the inherent limitations of voice recognition software.
<Ruth Fairbanks DO - Last Filed: 10/09/23 07:19>
ED Attending Note
Patient seen and examined by attending physician: Yes
I performed the substantive portion of visit, reviewed & personally made and approve the management plan that is documented in note by myself or DIEGO.: Yes
ED Attending Note:
This is an 83-year-old woman who resides at [facility]. She has history of dementia, ambulatory dysfunction with frequent falls. She has history of atrial fibrillation chronically maintained on Eliquis.
[facility] after suffering a mechanical fall apparently striking her head on the bed frame/side table and according to nursing staff complaining of some back pain. No reported head injury but it does not appear that
the fall was witnessed.
Patient arrived to the ED, bright and alert, pleasant, offering no complaints while lying supine. Significantly hard of hearing.
Multiple visits to this ED for similar falls, most recently September of this month where she suffered fracture at the base of her right thumb.
TRAUMA EXAM:
VITAL SIGNS: Vital signs reviewed, cooperative
DISTRESS: No active disease
EYES: Pupils reactive, no orbital trauma
NOSE: No deformity or epistaxis
FACE AND SCALP: No scalp or facial trauma, external canals no blood
NECK: Supple nontender
BACK: Patient able to sit up with two-person assistance. Once sitting upright she is able to support herself independently sitting up. Mild midline lower lumbar tenderness to palpation.
RESPIRATORY: No distress, breath sounds normal, no tender chest wall
CARDIAC: No murmur, pulses equal and strong
ABDOMEN: Soft nontender bowel sounds normal
SKIN: Skin intact no bleeding, color normal
EXTREMITIES: Short arm thumb spica cast on right arm. Mild to moderate tenderness right lateral hip, mild tenderness right posterior hip. There is near full hip range of motion without difficulty.
NEUROLOGICAL: Awake and alert, oriented x 1. Significantly hard of hearing. No focal motor deficit.
PSYCH: Mood affect normal
Elderly woman suffered unwitnessed fall at [facility], chronically maintained on Eliquis, will check CT of the head for potential occult intracranial injury/bleeding.
She is somewhat tender lower lumbar and about the right hip. Concern for lower lumbar fracture, right pelvic fracture, right hip fracture. Will check x-rays of lumbar spine, right hip and pelvis.
She remains hemodynamically stable, no abdominal pain or chest pain.
10/09/2023 0719 AM
Lumbar spine films show moderate DJD but no evidence of fracture. Right hip and pelvis x-ray unremarkable as well.
Will discharge back to [facility] for continued care. Recommend close observation light staff to hopefully avoid future falls.
Follow-up with PCP.
Discharge Plan
Departure
Patient Disposition: Group Home/SNF
Date of Disposition: 10/09/23
Time of Disposition: 07:17
Patient with high blood pressure during this ER visit?: No
Condition: Good
Discharge Problem:
Fall at [facility], Contusion of lower back
Instructions: Low back pain in adults, Contusion (DC), Fall Prevention for Older Adults
Prescriptions:
No Action
tramadol 50 MG tablet
50 mg PO Q8HPRN PRN (Reason: moderate pain)
quetiapine 25 mg Tablet
25 mg PO DAILY
haloperidol 0.5 mg Tablet
0.5 mg PO DAILY@1400
haloperidol 0.5 mg Tablet
0.5 mg PO DAILYPRN PRN (Reason: agitation/combativness/acute uti)
acetaminophen 325 mg Tablet
650 mg PO Q8HPRN PRN (Reason: mild pain)
acetaminophen 500 mg Tablet
1,000 mg PO DAILY
escitalopram oxalate 20 mg tablet
20 mg PO DAILY
metoprolol tartrate 25 mg Tablet
25 mg PO BID
multivitamin with folic acid [Therems Multivitamin] 400 mcg Tablet
1 tab PO DAILY
apixaban 2.5 mg Tablet
2.5 mg PO BID
Beneprotein 6 gram-25 kcal/7 gram Powder In Packet
1 ea PO DAILY
Referrals:
PRIVATE,PHYSICIAN [Family Provider] - Call in 1-3 days for appt
Interventions
Interventions:
*Risk Screen - Suicide Last Done: 10/09/23 03:28
*General Assessment Last Done: 10/09/23 03:28
*Neglect/Abuse Screening Last Done: 10/09/23 03:28
ED- Fall Risk Assessment Last Done: 10/09/23 03:28
ED-Musculoskeletal Assessment Last Done: 10/09/23 05:23
ED- Neurological Assessment Last Done: 10/09/23 03:28
ED-Skin Assessment Last Done: 10/09/23 05:23
Discharge Date and Time
Print Language: MALTESE
[2023-10-09 07:23] VITALS: BP 164/91
[2023-10-09 07:25] VITALS: BP 164/91
--- NOTE | 2023-10-09 07:28 | EDRN ---
the pt was received from previous [facility] shift RN, the pt is resting in stretcher in the lowest position, side rails up x2, call wilson within reach, HOB elevated, no s/s of distress, the pt has hearing aids in, the pt is confused however this is the
pts baseline, VS WNL, awaiting for transport to be set up for the pt, this RN noticed that the pt has bruising on the left hip and the left thigh, provider notified, the pts brief is dry, the pt denies having to go to the bathroom currently, will
continue to monitor the pt closely
--- NOTE | 2023-10-09 08:28 | EDRN ---
this RN saw from the nurses station the pt attempting to get out of the stretcher, the pt was found by the time this RN entered the pts room sitting on the foot of the stretcher, this RN reoriented the pt and asked the pt if she needed anything, the
pt denies needing anything at this time, no s/s of distress, this RN assisted the pt back into the stretcher and the pt is laying down with warm blankets, the stretcher is in the lowest position, side rails up x2, call wilson within reach, HOB
elevated, will continue to monitor the pt closely
--- NOTE | 2023-10-09 09:46 | EDRN ---
the pts daughter came out to the nurses station and stated that the pt is starting to get very anxious and agitated, the pts daughter stated, 'I am just afraid of it becoming a shit show for you guys, is it okay if she gets her AM medications that
are Haldol and Seroquel?', this RN notified Dr. Guzman is okay with the pt getting Haldol and Seroquel
[2023-10-09] MEDS: ATIVAN 0.5 MG PO (09:51)
[2023-10-09] MEDS: SEROQUEL 25 MG PO (09:51)
[2023-10-09] MEDS: HALDOL 0.5 MG PO (10:00)
--- NOTE | 2023-10-09 10:05 | EDRN ---
Ativan PO was also administered to the pt, the pt was able to take medications with no issues, the pt stated that she needed to use the bathroom, this RN and PCT Cookie found a walker and assisted the pt out of stretcher and the pt was able to
ambulate with the walker x1 assist to the bathroom with no issues, the pts brief was soiled with urine, the pts brief was changed, the pt was able to ambulate back to the stretcher with walker x1 assist with no issues, the pt is resting in stretcher
in the lowest position, side rails up x2, call wilson within reach, HOB elevated, no s/s of distress, the pts son is now currently at the pts bedside, the pts son wants to stay until transport arrives due to the pts son wanting to take the pts cochlea
implant with him, will continue to monitor the pt closely
--- NOTE | 2023-10-09 10:12 | EDRN ---
this RN called Awais Venegas at [phone] and gave the receiving nurse report
[2023-10-09 10:24] VITALS: BP 172/87
--- NOTE | 2023-10-09 10:39 | EDRN ---
verbal report given to [facility] staff, discharge instructions also given to [facility] staff, the pts son is taking the pts right cochlear implant with him
== END 2023-10-09 10:42 ==
LOC: EMR 03:23
PROVIDERS: EMERGENCY PHYSICIAN Emergency Medicine
DX: S30.0XXA Contusion of lower back and pelvis, initial encounter (principal); W22.8XXA Striking against or struck by other objects, initial encounter; Y92.129 Unspecified place in nursing home as the place of occurrence of the external cause; I48.91 Unspecified atrial fibrillation; I12.9 Hypertensive chronic kidney disease with stage 1 through stage 4 chronic kidney disease, or unspecified chronic kidney disease; N18.9 Chronic kidney disease, unspecified; F03.90 Unspecified dementia, unspecified severity, without behavioral disturbance, psychotic disturbance, mood disturbance, and anxiety; Z79.01 Long term (current) use of anticoagulants; Z90.710 Acquired absence of both cervix and uterus
CPT/HCPCS: 99284; 70450; 72110; 73502

== ENCOUNTER 2023-10-21 17:01 | Emergency (ER) | payer MEDICARE, BC, SELFPAY ==
[2023-10-21 17:06] VITALS: BP 164/98
--- NOTE | 2023-10-21 18:14 | ED.MUSCINJ ---
HPI-Injury
General
Chief Complaint: Fall
Source: family and alf
Exam Limitations: none
Time Seen by Provider: 10/21/23 17:22
Nursing documentation reviewed up to this point in time: agreed with
History of Present Illness-Injury
Is this injury a work related problem?: No
Is pt an associate of [facility]?: No
Initial Injury comments:
Patient to ED for eval s/p witnessed fall. According to nH and daughter, patient got up for chair, lost balance and fell onto her right knnee. No head injury, no LOC. Complains of pain to her left knee. 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
Past History
Past History
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
ED Past Surgical History: Cardiac (cardiac ablation), Gynecological (hysterectomy) and Orthopedic (L rotator cuff, B/L foot surgery)
Social History
Tobacco: Non-smoker
Alcohol: None
Drug: None
Personal:
Living: alf ([facility] dementia unit)
Family History
Family History: Other (noncontributory)
Review of Systems
Review of Systems
Allergies reviewed?: Yes
All Other Systems: ROS reviewed and negative except as documented in HPI and ROS
Constitutional: Reports no symptoms
EENT: Reports no symptoms
Respiratory: Reports no symptoms
Cardiac: Reports no symptoms
ABD/GI: Reports no symptoms
Musculoskeletal: Reports joint pain (Pain to right knee)
Skin: Reports other (abrasion to right knee)
Neurological: Reports no symptoms
Psychiatric: Reports no symptoms
Musculoskeletal Injury Exam
Musculoskeletal Injury Exam
Right Anterior Knee:
Pain with Movement?: Mild
Tender to palpation?: Mild
Soft tissue swelling?: None
External deformity and angulation?: None
Joint effusion?: None
Contusion?: Moderate
Hematoma-local bleeding into tissue?: Mild
Strain- Sprain- Tear (Connective tissue injury)?: None
Crepitus with movement?: No
Joint instability?: No
Malalignment/deformity?: No
Range of motion: Full
Distal skin color and temperature: normal-warm & good color
Capillary Refill: normal
Normal distal neurovascular exam?: Yes
Phy Exam
General Physical Exam
General Presentation: well appearing and no apparent distress
General age: appears stated age
General Skin: warm and dry
General Habitus: normal
General Mental: alert
Musculoskeletal Exam
Musculoskeletal Exam: full ROM, neuro vasc intact and other (No new pain to hip. Ambulating with walker without difficulty)
Skin Exam
Skin Exam: normal color, warm/dry, no rash and other (superficial abrasion to knee)
Psychiatric Exam
Psychiatric Exam: normal mood/affect
Injury Course
Orders/Labs/Results
Orders:
Orders
10/21/23 17:09
Knee, Right 4 or More Views [CR Knee- Right 4 Or More View*] Urgent
Comment: pt is on bld thinner
Reason For Exam: right knee pain. fell and landed on knee
*Radiology
Radiology exam reviewed: radiology read reviewed
*Pulse Oximetry
Patient hypoxic: no
*Critical Care Note
Total Time (30-74mins, 75-104mins- exclusive of procedures): Not Applicable
ED Attending Note
-
Portions of this chart may have been created with voice recognition software.� Occasional wrong word or��sound alike� substitutions may have occurred due to the inherent limitations of voice recognition software.
Discharge Plan
Departure
Patient Disposition: Home (Routine Discharge)
Date of Disposition: 10/21/23
Time of Disposition: 18:10
Patient with high blood pressure during this ER visit?: No
Condition: Good
Covid-19: Not Applicable
Discharge Problem:
Contusion of knee
Instructions: Wound Care (DC), Contusion (DC), Preventing falls in adults, Skin Abrasions (DC), Using Cold for Pain
Prescriptions:
No Action
tramadol 50 MG tablet
50 mg PO Q8HPRN PRN (Reason: moderate pain)
quetiapine 25 mg Tablet
25 mg PO DAILY
haloperidol 0.5 mg Tablet
0.5 mg PO DAILY@1400
haloperidol 0.5 mg Tablet
0.5 mg PO DAILYPRN PRN (Reason: agitation/combativness/acute uti)
acetaminophen 325 mg Tablet
650 mg PO Q8HPRN PRN (Reason: mild pain)
acetaminophen 500 mg Tablet
1,000 mg PO DAILY
escitalopram oxalate 20 mg tablet
20 mg PO DAILY
metoprolol tartrate 25 mg Tablet
25 mg PO BID
multivitamin with folic acid [Therems Multivitamin] 400 mcg Tablet
1 tab PO DAILY
apixaban 2.5 mg Tablet
2.5 mg PO BID
Beneprotein 6 gram-25 kcal/7 gram Powder In Packet
1 ea PO DAILY
Referrals:
Emelina Davis CRNP [Family Provider] - Tomorrow
Interventions
Interventions:
*Risk Screen - Suicide Last Done: 10/21/23 17:22
*General Assessment Last Done: 10/21/23 17:22
*Neglect/Abuse Screening Last Done: 10/21/23 17:22
*ED COVID-19 Vaccine History Last Done: 10/21/23 17:22
*Nursing Disposition Last Done: 10/21/23 18:27
ED-Musculoskeletal Assessment Last Done: 10/21/23 17:22
ED- Neurological Assessment Last Done: 10/21/23 17:22
ED-Skin Assessment Last Done: 10/21/23 17:22
Discharge Date and Time
Discharge Date/Time: 10/21/23 18:27
Print Language: MACEDONIAN
== END 2023-10-21 18:27 ==
LOC: EMR 17:01
PROVIDERS: EMERGENCY PHYSICIAN Emergency Medicine; FAMILY PHYSICIAN Nurse Practitioner Gerontology
DX: S80.02XA Contusion of left knee, initial encounter (principal); W18.30XA Fall on same level, unspecified, initial encounter; I10 Essential (primary) hypertension; I48.91 Unspecified atrial fibrillation; F03.90 Unspecified dementia, unspecified severity, without behavioral disturbance, psychotic disturbance, mood disturbance, and anxiety; Z79.01 Long term (current) use of anticoagulants
CPT/HCPCS: 99283; 73564

== ENCOUNTER 2023-10-30 13:13 | Inpatient (IN) | payer MEDICARE, BC, SELFPAY ==
[2023-10-30] VITALS (11 sets, daily range): BP systolic 136–188; BP diastolic 59–100
--- NOTE | 2023-10-30 08:26 | ED.GENMED ---
History of Present Illness
General
Chief Complaint: Fall
Source: ambulance crew
Exam Limitations: none
Time Seen by Provider: 10/30/23 08:25
Nursing documentation reviewed up to this point in time: agreed with
History of Present Illness
History of Present Illness:
Patient is an 83-year-old female brought by EMS from [facility]. EMS reports patient was found on the floor. Staff is unaware how long she has been on the floor she has baseline dementia and is at baseline mental status. She is is on
blood thinners(Eliquis ) EMS reports that pt has what appears to be old right knee injury however left wrist looks deformed as per EMS. 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
Past History
Past History
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
ED Past Surgical History: Cardiac (cardiac ablation), Gynecological (hysterectomy) and Orthopedic (L rotator cuff, B/L foot surgery)
Social History
Tobacco: Non-smoker
Alcohol: None
Drug: None
[place] [facility] [place] dementia unit)
Family History
Family History: Other (noncontributory)
Review of Systems
Review of Systems
Unable to obtain full review of systems at this time due to: dementia
Other source history: ambulance crew
All Other Systems: ROS reviewed and negative except as documented in HPI and ROS
Constitutional: Reports no symptoms; Denies fever
Cardiac: Reports no symptoms
ABD/GI: Reports no symptoms
Musculoskeletal: Reports other (left wrist deformity )
Skin: Reports no symptoms
Neurological: Reports no symptoms
Psychiatric: Reports no symptoms
Phy Exam
General Physical Exam
General Presentation: no apparent distress
General age: appears stated age
General Skin: warm and dry
General Habitus: elderly
General Mental: alert
Cardiovascular Exam
Cardiovascular Exam: regular rate/rhythm, no murmur and normal peripheral pulses
Pulmonary Exam
Pulmonary Exam: lungs clear and no respiratory distress
Neurological Exam
Neurological Exam: alert and other (Able to state her name pleasantly confused answering questions)
Musculoskeletal Exam
Musculoskeletal Exam: other (old appearing bruising right knee with swelling ; left wrist with deformity , pt winces with palpation/movement of left wrist )
Skin Exam
Skin Exam: normal color and warm/dry
Course
Orders/Labs/Results
Orders:
Orders
10/30/23 08:31
CT Head W/o Iv Contrast Urgent
Comment:
Reason For Exam: trauma unwitnessed
IV Insert/Care/Rem.- Treatment PRN
10/30/23 08:38
CT Cervical Spine W/o Iv Contr Urgent
Comment:
Reason For Exam: trauma
Knee, Right 4 or More Views [CR Knee- Right 4 Or More View*] Urgent
Comment:
Reason For Exam: trauma
Wrist, Left 3 Views CR [CR Wrist - Left Min 3 Views] Urgent
Comment:
Reason For Exam: trauma
10/30/23 08:42
CPK [Creatine Phosphokinase] Urgent
Complete Blood Count/With Diff Urgent
Comprehensive Metabolic Panel Urgent
10/30/23 10:32
Urinalysis Reflex To Culture Urgent
Date Specimen was Collected: 10/30/23
Time Specimen was Collected: 10:32
10/30/23 11:22
Splints/Slings/Crut- Treatment ONCE
Location: Left
Type of Splint: Volar
10/30/23 11:23
Splints/Slings/Crut- Treatment ONCE
Location: Left
Type of Splint: Sugar Ton
Abnormal Lab Results
10/30/23
08:42
RBC 3.63 L 10^6/uL
(4.20-5.40)
MCV 105.8 H fL
(81.0-99.0)
MCH 34.4 H pg
(27.0-31.0)
MCHC 32.6 L g/dL
(33.0-37.0)
RDW 14.7 H %
(11.5-14.5)
BUN 23 H mg/dl
(7-17)
AST 37 H U/L
(14-36)
10/30/23 08:42
10/30/23 08:42
Vital Signs
Initial and Last Documented VS:
Initial Vital Signs
Temp Pulse Resp BP Pulse Ox
97.6 F 88 16 150/100 95
10/30/23 08:25 10/30/23 08:25 10/30/23 08:25 10/30/23 08:25 10/30/23 08:25
Last Documented Vital Signs
Temp Pulse Resp BP Pulse Ox
97.6 F 87 18 152/80 95
10/30/23 08:25 10/30/23 10:30 10/30/23 10:30 10/30/23 10:30 10/30/23 10:30
Measuring Machine Operator consulted with Physician
Measuring Machine Operator consulted with physician?: Yes
Name of Physician Consulted: disha
Procedures
Splint Check
Splint checked by provider?: Yes
Circulation/Movement/Sensation post splint application: brisk cap refill and full sensation
MDM/Problems Addressed
Differential Diagnosis Includes:
Not limited to intracranial head injury, contusion, wrist fracture for sprain infection versus bruise
MDM/Problems Addressed:
Patient is an 83-year-old female on Eliis from [place] found on the floor. It was unknown how long patient was on the floor. Patient presented awake alert. EMS reported patient is very hard hearing/deaf without cochlear implants. She presents
with obvious left wrist deformity. EMS reports that right knee ecchymosis is not new. Family now bedside they did bring patient's cochlear implants she is awake alert she is able to state her name but pleasantly confused as per baseline.
Patient's family reports that she is at baseline mental status. X-ray shows an obvious fracture to left wrist; CT head and cervical spine negative.
Family at bedside reports patient does reside at [place] however uses a walker and is a high fall risk has been here multiple times for falls. Patient was just seen October 20 for knee contusion after fall as well as October 08 for fall.
I spoke with orthopedics Dr. Hanson who patient has seen in the past. Family would like to discuss nonsurgical options. Dr. Hanson will splint and admit Ortho will evaluate tomorrow
Chronic conditions affecting care:
dementia fall risk on anticoaguatlion
*Radiology
Radiology exam reviewed: radiology read reviewed
*Pulse Oximetry
Patient hypoxic: no
*Critical Care Note
Total Time (30-74mins, 75-104mins- exclusive of procedures): Not Applicable
Data Reviewed
Review of Other/Old Records Reveals: Other (previous ED visits)
Patient Management
Discussion with other providers: Credit Consultant (ortho DR Hanson )
ED Attending Note
-
Portions of this chart may have been created with voice recognition software.� Occasional wrong word or��sound alike� substitutions may have occurred due to the inherent limitations of voice recognition software.
Discharge Plan
Departure
Patient Disposition: Admit
Date of Disposition: 10/30/23
Time of Disposition: 11:28
Admit to: Med/Surg
Admit to doctor: hospitalist
Presentation/result/management discussed w/ accepting MD/DO: Hospitalist
Patient with high blood pressure during this ER visit?: Yes
Condition: Fair
Covid-19: Not Applicable
Discharge Problem:
left wrist fracture, Fall
Prescriptions:
No Action
tramadol 50 MG tablet
50 mg PO Q8HPRN PRN (Reason: moderate pain)
quetiapine 25 mg Tablet
25 mg PO DAILY
haloperidol 0.5 mg Tablet
0.5 mg PO DAILY@1400
haloperidol 0.5 mg Tablet
0.5 mg PO DAILYPRN PRN (Reason: agitation/combativness/acute uti)
acetaminophen 325 mg Tablet
650 mg PO Q8HPRN PRN (Reason: mild pain)
acetaminophen 500 mg Tablet
1,000 mg PO DAILY
escitalopram oxalate 20 mg tablet
20 mg PO DAILY
metoprolol tartrate 25 mg Tablet
25 mg PO BID
multivitamin with folic acid [Therems Multivitamin] 400 mcg Tablet
1 tab PO DAILY
apixaban 2.5 mg Tablet
2.5 mg PO BID
Beneprotein 6 gram-25 kcal/7 gram Powder In Packet
1 ea PO DAILY
Referrals:
UNKNOWN - PT DOES,NOT KNOW [Family Provider] -
Interventions
Interventions:
*Risk Screen - Suicide Last Done: 10/30/23 08:25
*General Assessment Last Done: 10/30/23 08:25
*Neglect/Abuse Screening Last Done: 10/30/23 08:25
ED- Fall Risk Assessment Last Done: 10/30/23 08:25
*ED COVID-19 Vaccine History Last Done: 10/30/23 08:25
ED-Musculoskeletal Assessment Last Done: 10/30/23 08:25
ED- Neurological Assessment Last Done: 10/30/23 08:25
ED-Skin Assessment Last Done: 10/30/23 08:25
Discharge Date and Time
Print Language: MOHAWK
[2023-10-30 08:51] LABS: % Eosinophils 5.9 % (0-6); % Immature Granulocytes 0.3 % (0-0.5); % Lymphocytes 22.3 % (20.5-51.1); % Neutrophils 61.5 % (42.2-75.2); Absolute Basophils 0.1 10^3/uL (0-0.2); Absolute Eosinophils 0.4 10^3/uL (0-0.7); Absolute Lymphocytes 1.3 10^3/uL (1.2-3.4); Absolute Monocytes 0.5 10^3/uL (0.1-0.6); Absolute Neutrophils 3.6 10^3/uL (1.4-6.5); Hematocrit 38.4 % (37.0-47.0); Hemoglobin 12.5 g/dL (12.0-16.0); Mean Corp Hgb Conc. 32.6 g/dL (33.0-37.0); Mean Corpuscular Hgb 34.4 pg (27.0-31.0); Mean Corpuscular Volume 105.8 fL (81.0-99.0); Mean Platelet Volume 9.8 fL (7.4-10.4); Nucleated Red Blood Cells % 0 %; Platelet Count 221 10^3/uL (130-400); Red Blood Cell Count 3.63 10^6/uL (4.20-5.40); Red Cell Dist. Width 14.7 % (11.5-14.5); White Blood Cell Count 5.9 10^3/uL (4.8-10.8)
[2023-10-30 09:03] LABS: ALT (SGPT) 12 U/L (0-35); AST (SGOT) 37 U/L (14-36); Albumin 4.2 g/dl (3.5-5.0); Alkaline Phosphatase 83 U/L (38-126); Blood Urea Nitrogen 23 mg/dl (7-17); Calcium 9.3 mg/dl (8.4-10.2); Carbon Dioxide 30 mmol/L (22-30); Chloride 104 mmol/L (98-107); Creatine Phosphokinase 44 U/L (30-135); Glucose 98 mg/dl (70-99); Potassium 4.1 mmol/L (3.5-5.1); Sodium 143 mmol/L (135-145); Total Bilirubin 0.9 mg/dl (0.2-1.3); Total Protein 6.8 g/dl (6.3-8.2); eGFR > 60.00
[2023-10-30 10:50] LABS: Urine Albumin Negative (Neg - Trace); Urine Bilirubin Negative (Negative); Urine Character Clear (Clear); Urine Color Yellow; Urine Glucose Negative (Negative); Urine Ketone Negative (Negative); Urine Leukocyte Negative (Negative); Urine Nitrite Negative (Negative); Urine Occult Blood Negative (Negative); Urine Urobilinogen Negative (Neg - 1+); Urine pH 6.5 (5.0-9.0)
[2023-10-30] MEDS: OFIRMEV 1000 MG IV (11:26)
--- NOTE | 2023-10-30 11:39 | PHANOTE ---
med rec note- called [facility]. nurse at [facility] with fax over medication list to ed pod 1 fax
--- NOTE | 2023-10-30 12:17 | HPS.HSE ---
Addendum entered and electronically signed by Jl Nolan MD 10/30/23 15:30:
Pe<del>r</del> <del>Ortho</del> <del>PTA</del> SONG Oneil
Addendum entered and electronically signed by Jl Nolan MD 10/30/23 14:21:
Per Ortho PTA( Sharon Redmond ) - Will not have surgery until possibly Wednesday. To resume diet
Original Note:
Family Physician
-
Family Physician: NOT KNOW UNKNOWN - PT DOES
Chief Complaint
-
found on the floor at [place]
History of Present Illness
83F with Dementia, use walker Res [place] [facility] seen at ER for evaluation of s/p Fall with Lt wrist pain. Reports HX frequent falls, also on Eliquis for Prx AF.
Staff found patient on the floor of uncertain duration
Note NH report as patient is at baseline mentation when they found her
Impaired hearing without hearing cochlear device.
XR POS for Lt wrist Fx. ER d/w Ortho Dr Hanson:
Family is debating surgical vs. non surgical option.
Medical History
Past Medical History
Past Medical History: Reports Arrhythmia (AF on Eliquis ), HTN and Psychiatric (dementia, use walker )
Past Surgical History: Reports Cardiac (cardiac ablation ), Gynocological (hysterectomy ) and Orthopedic (L rotator cuff, B/L foot surgery)
Social History
Unable to obtain full social history at this time due to: Dementia
Tobacco: Non-smoker
Alcohol: None
Personal:
Living: Senior Living ([facility] unit)
Family History
Family History: Not pertinent
Allergies / Home Medications
Allergies reflects when Allergies were last updated in [employer].
Home Medications with original date entered in [employer]
Allergy/Medication List:
Allergies
Allergy/AdvReac Type Severity Reaction Status Date / Time
codeine Allergy Unknown Verified 10/21/23 17:08
latex Allergy Hives Verified 10/21/23 17:08
Sulfa (Sulfonamide Allergy Unknown Verified 10/21/23 17:08
Antibiotics)
sulfamethoxazole Allergy Unknown Verified 10/21/23 17:08
trimethoprim Allergy Unknown Verified 10/21/23 17:08
Home Medications
tramadol 50 mg tablet 50 mg PO Q8HPRN PRN moderate pain 05/28/17
acetaminophen 500 mg tablet 1,000 mg PO DAILY 09/17/23
apixaban 2.5 mg tablet 2.5 mg PO BID 09/17/23
escitalopram oxalate 20 mg tablet 20 mg PO DAILY 09/17/23
haloperidol 0.5 mg tablet 0.5 mg PO DAILYPRN PRN agitation/combativness/acute uti 09/17/23
metoprolol tartrate 25 mg tablet 25 mg PO BID 09/17/23
multivitamin with folic acid 400 mcg tablet (Therems Multivitamin) 1 tab PO DAILY 09/17/23
quetiapine 25 mg tablet 50 mg PO BID 09/17/23
whey protein isolate 6 gram-25 kcal/7 gram oral powder packet (Beneprotein) 1 ea PO DAILY 09/21/23
Review of Systems
-
Unable to obtain full review of systems at this time due to: Dementia
History Source: Senior Living, Transfer Record and Physician
Musculoskeletal: Reports See HPI
Physical Exam
Vital Signs
Vital Signs
Temp Pulse Resp BP Pulse Ox
97.6 F 87 18 152/80 95
10/30/23 08:25 10/30/23 10:30 10/30/23 10:30 10/30/23 10:30 10/30/23 10:30
Physical Exam
General: No Apparent Distress; No Respiratory Distress
HEENT: NormoCephalic and Moist mucous membranes
Respiratory: Clear
Cardiac: S1/S2 and Regular Rhythm
Breast: Deferred by me
GI: Soft, Non Tender and Non Distended
Rectal: Deferred by Provider
Genito-urinary: Deferred by me
Musculoskeletal: Other (old appearing bruising right knee with swelling ; left wrist with deformity , pt winces with palpation/movement of left wrist )
Skin: Other (knee ecchymosis is not new. )
Neuro: Awake and Alert
Psych: Calm and Apparent Dementia
Laboratory Results
-
10/30/23 08:42
10/30/23 08:42
Laboratory Results
Total Bilirubin 0.9 mg/dl (0.2-1.3) 10/30/23 08:42
AST 37 U/L (14-36) H 10/30/23 08:42
ALT 12 U/L (0-35) 10/30/23 08:42
Alkaline Phosphatase 83 U/L (38-126) 10/30/23 08:42
Data Reviewed
-
Diagnostic Radiology: Report Reviewed by me
CT Scan: Report Reviewed by me
Lab Data: Labs Reviewed by me
Old Records: Reviewed
Impression/Plan
-
Vital Signs
Temp Pulse Resp BP Pulse Ox
97.6 F 87 18 152/80 95
10/30/23 08:25 10/30/23 10:30 10/30/23 10:30 10/30/23 10:30 10/30/23 10:30
Laboratory Tests
10/30/23
08:42
WBC 5.9
Hgb 12.5
Plt Count 221
BUN 23 H
eGFR > 60.00
Lt. wrist XR:
Comminuted, impacted, angulated, and dorsally displaced distal radius intra-articular metaphyseal fracture.
As far as Visualized, the distal ulna appears intact.
No radiographically demonstrable carpal bone fracture. However, limited visualization and assessment at the first carpal-metacarpal articulatio
XR Knee;
1. Acute soft tissue contusion anterior to the patella.
2. No radiographic evidence for acute fracture or joint effusion in the right knee.
3. Diffuse bone demineralization.
4. Mild meniscal chondrocalcinosis.
CX spine CT
No fracture. Degenerative changes, as described.
HCT
Right cochlear implant with metal artifact. As far as visualized, stable chronic findings.
No acute intracranial hemorrhage or extra-axial collection. No mass effect. No skull fracture.
10/20/22 TTE
Estimated LVEF 55-60%.
Mild concentric left ventricular hypertrophy.
Severe aortic stenosis. The peak gradient across the valve is 73 mmHg with a mean of 44 mmHg.
Using a LVOT diameter of 2.4 cm, the PRICE is 0.6 cm sq.
Mild aortic regurgitation.
Moderate mitral regurgitation.
Mild/moderate tricuspid regurgitation. Normal PASP
ASSESSMENT & PLAN
Lt wrist Fx: Comminuted, impacted, angulated, and dorsally displaced distal radius intra-articular metaphyseal fracture.
- medically acceptable to proceed with OR. Benefits outweigh the risks
- RCRI class I risk - low
- Frequent Falls
- Held Eliquis pending decison for surgery vs non surgery
- Last dose - presumed last evening
- clear for now
- PT/OT
- Ortho consulted ( Known to Dr Hanson)
HX Prx AF : in NSR
- check EKG
- cont Metoprolol tartrate
- held Eliquis in case OR
HX severe with LVOT diameter of 2.4 cm, the PRICE is 0.6 cm sq.
- Known to CBC card
- To consider CBC card consult if surgical option is opted
[facility] HTN
- stable
- cont. BB
Dementia/ Depression/ Anxiety
- at risk for AMS with current acute issues and pain control
- cont. Lexapro , Quetiapine
- fall precaution
DVT Px: SCD for now
Code: Full
IP TLM
[2023-10-30] MEDS: TYLENOL 650 MG PO ×2 (16:28→20:03)
[2023-10-30] MEDS: COLACE 100 MG PO (20:01)
[2023-10-30] MEDS: LOPRESSOR 25 MG PO (20:01)
[2023-10-30] MEDS: RISPERDAL M-TAB (ORALLY DISINTEGRATING) 0.25 MG PO (20:02)
[2023-10-30] MEDS: SENOKOT 17.2 MG PO (20:03)
[2023-10-30] MEDS: SEROQUEL 50 MG PO (20:08)
[2023-10-31] VITALS (7 sets, daily range): BP systolic 123–166; BP diastolic 58–89; PULSE 88; O2SAT 95
[2023-10-31] MEDS: TYLENOL PO ×2 (04:35)
[2023-10-31] MEDS: TYLENOL 650 MG PO ×4 (08:05→20:40)
[2023-10-31] MEDS: COLACE 100 MG PO ×2 (08:05→20:39)
[2023-10-31] MEDS: SENOKOT 17.2 MG PO ×2 (08:06→20:40)
[2023-10-31] MEDS: SEROQUEL 50 MG PO (08:14)
[2023-10-31] MEDS: LOPRESSOR 25 MG PO ×2 (08:15→20:39)
[2023-10-31] MEDS: RISPERDAL M-TAB (ORALLY DISINTEGRATING) 0.25 MG PO ×2 (08:16→20:39)
--- NOTE | 2023-10-31 08:21 | CON.ORTHO ---
Consultation
-
Date/Time Consultation Requested: 10/30/2023; time unknown
Date/Time Consultation Performed: 10/31/2023; 0800
Requesting Provider: unknown
Performing Provider: Catalina Smith PA-C for Dr. Rob Hanson
Reason for Consultation: Right distal radius fracture
Consultation - Orthopedics
History
Ms. Murray is an 83 year old female with PMH of a-fib on Eliquis, HTN and dementia seen today for evaluation of her left wrist. She was found down at [facility]. Staff was unsure how long she had been on the floor. She was brought to ED
via EMS where x-rays revealed a distal radius fracture. She is resting comfortably in bed this morning. She is quite confused this morning, but did not report any concern over her left wrist. I was able to speak with her daughter, Nia, on the
phone who reports this confusion is consistent with her baseline. She reports her mother did have a recent fracture of her thumb which was treated non-operatively in a cast. She typically ambulates with the assistance of a walker.
Allergies / Home Medications
Allergy/AdvReac Type Severity Reaction Status Date / Time
codeine Allergy Unknown Verified 10/21/23 17:08
latex Allergy Hives Verified 10/21/23 17:08
Sulfa (Sulfonamide Allergy Unknown Verified 10/21/23 17:08
Antibiotics)
sulfamethoxazole Allergy Unknown Verified 10/21/23 17:08
trimethoprim Allergy Unknown Verified 10/21/23 17:08
�Medication �Instructions �Recorded
tramadol 50 mg tablet 50 mg PO Q8HPRN PRN moderate pain 05/28/17
acetaminophen 500 mg tablet 1,000 mg PO DAILY 09/17/23
apixaban 2.5 mg tablet 2.5 mg PO BID 09/17/23
escitalopram oxalate 20 mg tablet 20 mg PO DAILY 09/17/23
haloperidol 0.5 mg tablet 0.5 mg PO DAILYPRN PRN 09/17/23
agitation/combativness/acute uti
metoprolol tartrate 25 mg tablet 25 mg PO BID 09/17/23
multivitamin with folic acid 400 1 tab PO DAILY 09/17/23
mcg tablet (Therems Multivitamin)
quetiapine 25 mg tablet 50 mg PO BID 09/17/23
whey protein isolate 6 gram-25 1 ea PO DAILY 09/21/23
kcal/7 gram oral powder packet
(Beneprotein)
Vital Signs / Lab Results
Temp Pulse Resp BP Pulse Ox
97.4 F 81 16 155/70 95
10/31/23 03:23 10/31/23 03:23 10/31/23 03:23 10/31/23 03:23 10/31/23 03:23
10/30/23 08:42
10/30/23 08:42
XR Left Wrist 10/30/2023 FINDINGS/impression:
Comminuted, impacted, angulated, and dorsally displaced distal radius intra-articular metaphyseal fracture.
Directed exam of the left wrist taken today and independently interpreted by me reveal short arm splint in place. Generalized edema throughout the fingers. Patient able to wiggle fingers. Sensation intact to light touch. Capillary refill <2 seconds.
Assessment / Plan
Left distal radius fracture
--Unfortunately, Kaylah sustained a distal radius fracture in her fall. Given the amount of shortening and angulation, we recommend proceeding with ORIF left distal radius fracture. I spoke with Kaylah's daughter, Nia, on the phone. We
discussed the risks, benefits, alternatives, recovery process and potential complications. She is concerned about her mother going under anesthesia, and the implications this could have on her mental status. She would like to discuss the options
with her siblings prior to making a decision. We will touch base with them later today/tomorrow. Should they choose to proceed with surgery, we will plan on doing this on Wednesday under the direction of Dr. Hanson.
--Continue with immobilization in short arm splint.
--NWB to LUE.
--Encourage elevation and ice for edema control. If swelling improves, please remove ring from left ring finger.
--Pain control per primary. Limit narcotics where possible given baseline dementia.
--Orthopedics will continue to follow along. Please reach out with any questions or concerns.
[2023-10-31 09:59] LABS: % Basophils 0.4 % (0-2); % Eosinophils 0.4 % (0-6); % Immature Granulocytes 0.6 % (0-0.5); % Lymphocytes 8.3 % (20.5-51.1); % Monocytes 6.9 % (1.7-9.3); % Neutrophils 83.4 % (42.2-75.2); Absolute Immature Granulocytes 0.1 10^3/uL (0-0.05); Absolute Lymphocytes 0.8 10^3/uL (1.2-3.4); Absolute Monocytes 0.7 10^3/uL (0.1-0.6); Absolute Neutrophils 8.2 10^3/uL (1.4-6.5); Hematocrit 37.2 % (37.0-47.0); Hemoglobin 12.4 g/dL (12.0-16.0); Mean Corp Hgb Conc. 33.3 g/dL (33.0-37.0); Mean Corpuscular Hgb 35.7 pg (27.0-31.0); Mean Corpuscular Volume 107.2 fL (81.0-99.0); Mean Platelet Volume 9.9 fL (7.4-10.4); Nucleated Red Blood Cells % 0 %; Platelet Count 207 10^3/uL (130-400); Red Blood Cell Count 3.47 10^6/uL (4.20-5.40); Red Cell Dist. Width 14.6 % (11.5-14.5); White Blood Cell Count 9.8 10^3/uL (4.8-10.8)
[2023-10-31 10:14] LABS: Blood Urea Nitrogen 27 mg/dl (7-17); Calcium 9.4 mg/dl (8.4-10.2); Carbon Dioxide 25 mmol/L (22-30); Chloride 105 mmol/L (98-107); Glucose 115 mg/dl (70-99); Potassium 3.9 mmol/L (3.5-5.1); Sodium 141 mmol/L (135-145); eGFR > 60.00
--- NOTE | 2023-10-31 12:14 | W.PN.HOSP.TC ---
Today's Communication/Plan
-
Monitor vital signs see plan
Pain control
Decree Seroquel back to 25 mg twice daily
Monitor mental status
Awaiting family decision regarding surgery
Continue to hold Eliquis
Echocardiogram tomorrow
If family opts for surgery then will get cardiology evaluation
DNR, discussed with daughter at bedside
Assessment / Plan
Assessment / Plan
General: No Apparent Distress; No Respiratory Distress
HEENT: NormoCephalic and Moist mucous membranes
Respiratory: Clear
Cardiac: S1/S2 and Regular Rhythm
GI: Soft, Non Tender and Non Distended
Musculoskeletal: Other (old appearing bruising right knee with swelling ; left wrist with deformity , pt winces with palpation/movement of left wrist )
Neuro: Awake and Alert
Psych: Calm and Apparent Dementia
Lt wrist Fx: Comminuted, impacted, angulated, and dorsally displaced distal radius intra-articular metaphyseal fracture.
- medically acceptable to proceed with OR. Benefits outweigh the risks
- RCRI class I risk - low however given her , she will be atleast moderate risk
- Frequent Falls
- Held Eliquis pending decision for surgery vs non surgery
- Last dose - presumed last evening
- clear for now
- PT/OT
- Ortho following, recommending ORIF left distal radius fracture. Family is hesitant given ongoing dementia and her undergoing anesthesia. They will discuss amongst himself and will let Ortho know. Will order echocardiogram
History of paroxysmal A-fib
in NSR
- cont Metoprolol tartrate
- held Eliquis in case OR
HX severe with LVOT diameter of 2.4 cm, the PRICE is 0.6 cm sq.
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
-Sees Dr. Knott outpatient
- To consider CBC card consult if surgical option is opted on wednesday
[facility] HTN
- stable
- cont. BB
Dementia/ Depression/ Anxiety
- at risk for AMS with current acute issues and pain control
- cont. Lexapro , Quetiapine; Seroquel was recently increased to 50 twice daily, after speaking to the daughter, it appears that it is making her more lethargic. Decrease Seroquel back to 25 twice daily
- fall precaution
DVT Px: SCD for now
Code: DNR, discussed with daughter at bedside
Anticipated Discharge: > 48 hours
Subjective/Interval History
-
Date of Service: October 31, 2023
no pain
Objective Data
-
Labs:
Laboratory Results
10/31/23
09:23
WBC 9.8
Hgb 12.4
Hct 37.2
Plt Count 207
Sodium 141
Potassium 3.9
Chloride 105
Carbon Dioxide 25
BUN 27 H
Creatinine 0.7
Glucose 115 H
Calcium 9.4
Vital Signs:
Vital Signs
Temp Pulse Resp BP Pulse Ox
98.2 F 77 16 133/58 94
10/31/23 11:00 10/31/23 11:00 10/31/23 11:00 10/31/23 11:00 10/31/23 11:00
I&O
10/30/23 10/31/23 11/01/23
06:59 06:59 06:59
Intake Total 240 / 240
Balance 240 / 240
--- NOTE | 2023-10-31 14:32 | CM ---
Addendum entered by Yoli Lam 10/31/23 14:38:
PCP: Dr Mchugh.
Original Note:
junior brand manager reviewed patient's chart and met with patient and spoke with patient's daughter, Nia Cash [phone] by phone, patient has dementia. Patient resides at [facility] their memory care unit, patient was independent with adl's and
uses a walker with ambulation.
Patient with left distal radius fracture and plan is for possible ORIF of left distal radius fracture.
Plan; Family to discuss and make a decision on surgery.
--- NOTE | 2023-10-31 16:52 | W.PN.UPDATE ---
Update Note
Progress Note Update
Discussed with daughter Nia over the phone.
Patient has a recent history of hand fracture that was treated with a cast, but patient did not tolerate the cast well.
We can possibly do surgery on Wednesday with regional block and sedation, which avoids general anesthesia.
She is amenable to this option, but she will discuss with her siblings prior to making final decision.
We will plan for surgery on Wednesday
Consider cards consult
[2023-10-31] MEDS: SEROQUEL 25 MG PO (20:43)
[2023-11-01] VITALS (8 sets, daily range): BP systolic 117–165; BP diastolic 58–91; PULSE 80–88; O2SAT 94–96
[2023-11-01] MEDS: TYLENOL PO ×2 (00:36→05:00)
--- NOTE | 2023-11-01 07:31 | W.PN.UPDATE ---
Addendum entered and electronically signed by Rob Hanson MD 11/01/23 12:55:
Patient seen and examined
RUE marked. OR notified
Will proceed with left distal radius ORIF tomorrow
Original Note:
Update Note
Progress Note Update
Patient seen and evaluated by Orthopedic surgery this morning. She is lying in bed comfortably in no acute distress.
I called and spoke with patient's medical POEn Kramer. Surgical and blood consent form obtained and placed in patient's chart.
We will plan for left distal radius open reduction internal fixation on Wednesday under the direction of Dr. Hanson with regional block and sedation, which avoids general anesthesia.
Consider cards consult.
Preoperative Ancef and irrigation will call to OR. N.p.o. pMN 11/01/2023. Hold Eliquis at this time.
Orthopedic surgery will continue to follow along.
[2023-11-01 07:41] LABS: % Basophils 0.5 % (0-2); % Eosinophils 1.9 % (0-6); % Immature Granulocytes 0.6 % (0-0.5); % Monocytes 7.9 % (1.7-9.3); % Neutrophils 77.1 % (42.2-75.2); Absolute Basophils 0.1 10^3/uL (0-0.2); Absolute Eosinophils 0.2 10^3/uL (0-0.7); Absolute Immature Granulocytes 0.1 10^3/uL (0-0.05); Absolute Lymphocytes 1.2 10^3/uL (1.2-3.4); Absolute Monocytes 0.8 10^3/uL (0.1-0.6); Absolute Neutrophils 7.9 10^3/uL (1.4-6.5); Hematocrit 37.1 % (37.0-47.0); Hemoglobin 12.4 g/dL (12.0-16.0); Mean Corp Hgb Conc. 33.4 g/dL (33.0-37.0); Mean Corpuscular Hgb 35.6 pg (27.0-31.0); Mean Corpuscular Volume 106.6 fL (81.0-99.0); Mean Platelet Volume 9.8 fL (7.4-10.4); Nucleated Red Blood Cells % 0 %; Platelet Count 194 10^3/uL (130-400); Red Blood Cell Count 3.48 10^6/uL (4.20-5.40); Red Cell Dist. Width 14.7 % (11.5-14.5); White Blood Cell Count 10.3 10^3/uL (4.8-10.8)
--- NOTE | 2023-11-01 08:08 | CON.CAR ---
Addendum entered and electronically signed by Mark Reid MD 11/01/23 09:17:
I saw and examined the patient.
The CIVIL PROCESS SERVER's note was reviewed and I agree with the note.
Comment: 83 y/o female with significant dementia, PAF, atrial tachycardia, s/p TAVR ([facility] 12/30/2022), hearing loss, mild to moderate MR, and hypertension who is here for evaluation after she was found on the ground at her nursing facility and has
sustained a wrist fracture. She is a poor historian due to her significant dementia.
Overall, she appears relatively stable and does not seem to be volume overloaded. She needs no further CV testing or medications prior to this and she is not prohibitive risk.
- Resume anticoagulation when OK from surgical perspective
- Routine follow up with cardiology
We will sign off please call with questions/concerns.
Original Note:
Consultation
Consultation Request
Date/Time Consultation Requested: 11/01/23732
Date/Time Consultation Performed: 11/01/23 0808
Requesting Provider: Dr. Peters
Performing Provider: Halima QUINTANILLA for Dr. Reid
Reason for Consultation: pre-op cardiac risk assessment
Medical History
-
Chief Complaint: fall, wrist fracture
History of Present Illness:
83 y/o female with significant dementia, PAF, atrial tachycardia, s/p TAVR ([facility] 12/30/2022), hearing loss, mild to moderate MR, and hypertension who is here for evaluation after she was found on the ground at her nursing facility and has
sustained a wrist fracture. She is a poor historian due to her significant dementia. She is in no distress at the time of my assessment. Plan per ortho is for left distal radius open reduction internal fixation tomorrow with regional block and
sedation. She has a history of AFIB and Eliquis held for surgery.
Past Medical History
Past Medical History: Arrhythmias, HTN, Valvular Disease and Other (dementia)
Social History
Living: Prison
Family History
Family History: Reviewed & Not Pertinent
Allergies / Home Medications
Allergy/AdvReac Type Severity Reaction Status Date / Time
codeine Allergy Unknown Verified 10/21/23 17:08
latex Allergy Hives Verified 10/21/23 17:08
Sulfa (Sulfonamide Allergy Unknown Verified 10/21/23 17:08
Antibiotics)
sulfamethoxazole Allergy Unknown Verified 10/21/23 17:08
trimethoprim Allergy Unknown Verified 10/21/23 17:08
�Medication �Instructions �Recorded �Confirmed �Type
tramadol 50 mg tablet 50 mg PO Q8HPRN PRN moderate pain 05/28/17 10/30/23 History
acetaminophen 500 mg tablet 1,000 mg PO DAILY Pain/fever 09/17/23 10/30/23 History
apixaban 2.5 mg tablet 2.5 mg PO BID Blood Clot 09/17/23 10/30/23 History
Prevention/Tx
escitalopram oxalate 20 mg tablet 20 mg PO DAILY Depression 09/17/23 10/30/23 History
haloperidol 0.5 mg tablet 0.5 mg PO DAILYPRN PRN 09/17/23 10/30/23 History
agitation/combativness/acute uti
metoprolol tartrate 25 mg tablet 25 mg PO BID Blood Pressure 09/17/23 10/30/23 History
multivitamin with folic acid 400 1 tab PO DAILY Supplement 09/17/23 10/30/23 History
mcg tablet ([facility]ms Multivitamin)
quetiapine 25 mg tablet 50 mg PO BID agitation/combativness 09/17/23 10/30/23 History
whey protein isolate 6 gram-25 1 ea PO DAILY Supplement 09/21/23 10/30/23 History
kcal/7 gram oral powder packet
(Beneprotein)
Review of Systems
-
Unable to obtain full review of systems at this time due to: Dementia
History Source: Other (chart)
Musculoskeletal: Other (fall with left wrist fracture)
Physical Exam
Vital Signs
Temp Pulse Resp BP Pulse Ox
97.0 F 92 16 146/70 95
11/01/23 03:00 11/01/23 03:00 11/01/23 03:00 11/01/23 03:00 11/01/23 03:00
Lab Results
11/01/23 07:07
Physical Exam
General: Well Developed, Well Nourished and No Apparent Distress
HEENT: Normocephalic and Anicteric
Respiratory: Clear and Non Labored Respirations
Cardiac: Irregular Rhythm
Skin: Warm and Dry
Neuro: Awake, Alert and Oriented (self only)
Psych: Calm and Confused
Impression / Plan
-
Left wrist fracture: Acute
-this diagnosis is risk to bodily function
-Plan per ortho is for left distal radius open reduction internal fixation tomorrow with regional block and sedation.
-pre-op cardiac risk assessment- patient with history of TAVR and AFIB. Echo ordered for today, and was stable by last check. Lungs clear and she is breathing comfortably. Tele is stable in SR with PAC's. Continue metoprolol. No cardiac
contraindication to proposed procedure.
s/p TAVR:
-echo ordered by primary team
-stable by last echo 01/2023 as below
PAF:
-on Eliquis as OP. This is on hold for surgery. Would recheck weight as she has been less than 60 kg in the past, so on Eliquis 2.5 mg PO BID as OP. Initial weight here >60 kg, and if that is the case she should be on 5 mg PO BID, but would check
accuracy of weight to make sure correct dosing when on Eliquis. [id number] score is 4 for age, female, HTN.
-she is currently in SR with frequent PAC's- follow telemetry. Continue metoprolol.
HTN:
-continue metoprolol and monitor
Significant dementia
Data Reviewed
-
EKG: Tracing Personally Visualized and interpreted (SR with SA 83 BPM, LVH)
Radiology: Report Reviewed by me (wrist: Comminuted, impacted, angulated, and dorsally displaced distal radius intra-articular metaphyseal fracture.)
Medical Tests (Nuc Med, Echo etc): Report Reviewed by me (echo 02/01/23: EF 58%, mild concentric LVH, LA severely dilated, mild to moderate MR, TAVR well-seated, normal gradients across valve mean 9 mmhg)
Labs: Labs Reviewed by me
[2023-11-01 08:24] LABS: Blood Urea Nitrogen 21 mg/dl (7-17); Calcium 9.1 mg/dl (8.4-10.2); Carbon Dioxide 29 mmol/L (22-30); Chloride 106 mmol/L (98-107); Glucose 92 mg/dl (70-99); Potassium 3.5 mmol/L (3.5-5.1); Sodium 144 mmol/L (135-145); eGFR > 60.00
[2023-11-01] MEDS: TYLENOL 650 MG PO ×4 (08:42→20:03)
[2023-11-01] MEDS: SENOKOT 17.2 MG PO ×2 (08:43→20:03)
[2023-11-01] MEDS: COLACE 100 MG PO ×2 (08:43→20:04)
[2023-11-01] MEDS: SEROQUEL 25 MG PO ×2 (08:43→20:03)
[2023-11-01] MEDS: RISPERDAL M-TAB (ORALLY DISINTEGRATING) 0.25 MG PO ×2 (08:44→20:04)
[2023-11-01] MEDS: LOPRESSOR 25 MG PO ×2 (08:45→20:04)
--- NOTE | 2023-11-01 12:47 | W.PN.HOSP.TC ---
Today's Communication/Plan
-
for OR
Assessment / Plan
Assessment / Plan
83yo F with dementia, afib, severe s/p TAVR, HTN brought to the hospital s/p fall found L radius Fx, planned for ORIF on 11/01/23
Patient is a resident of memory care unit
A/P:
#L radius Fx
Ortho for mgmt: plan for ORIF with regional anesthesia
pain mgmt
Cardio: no further testing or medications adjustment ahead of Sx
#Fall
unclear if syncope
Patient is extremely demented to provide reasonable Hx
#Paroxysmal Afib
telemetry
Hold Eliquis for Sx
cont rate control
# s/p TAVR
#Essential HTN
#Anxiety d/o
#Dementia, severe, unspecified
cont home meds
#Macrocytosis
chronic, since 05/07
check B12, folate
DVT ppx on SCDs
DNR/DNI
I hav espent at least 39min reviewing chart, test reasults, communication with consultants and direct patient care
Anticipated Discharge: > 48 hours
Subjective/Interval History
-
Date of Service: November 01, 2023
Objective Data
-
Labs:
Laboratory Results
11/01/23
07:07
WBC 10.3
Hgb 12.4
Hct 37.1
Plt Count 194
Sodium 144
Potassium 3.5
Chloride 106
Carbon Dioxide 29
BUN 21 H
Creatinine 0.7
Glucose 92
Calcium 9.1
Vital Signs:
Vital Signs
Temp Pulse Resp BP Pulse Ox
98.1 F 77 20 117/58 94
11/01/23 11:48 11/01/23 11:48 11/01/23 11:48 11/01/23 11:48 11/01/23 11:48
I&O
10/31/23 11/01/23 11/02/23
06:59 06:59 06:59
Intake Total 240 / 240 120 / 120
Balance 240 / 240 120 / 120
Review of Systems
-
Unable to obtain full review of systems at this time due to: Dementia
Physical Exam
-
General: No Apparent Distress
Respiratory: Clear to Auscultation
Cardiac: Regular Rhythm
GI: Soft, Nontender and Nondistended
Musculoskeletal: No Clubbing, No Cyanosis and No Edema
Skin: Warm
Neuro: Awake and Alert
Psych: Calm and Apparent Dementia
--- NOTE | 2023-11-01 16:17 | CM ---
CM reviewed chart, patient for ORIF tomorrow. CM will follow for needs after OR. Patient resident of [facility] in Memory Care Unit. CM will continue to follow for all discharge planning needs.
Plan; watch for SNF recommendations, plan for ORIF tomorrow.
[2023-11-02] VITALS (11 sets, daily range): BP systolic 129–172; BP diastolic 57–92
[2023-11-02] MEDS: TYLENOL PO ×5 (01:11→18:38)
--- NOTE | 2023-11-02 07:36 | W.PN.UPDATE ---
Update Note
Progress Note Update
83F planned for OR today for L ALEXEY thompson/ Dr. Hanson
-consent on file
-NPO
-ABX OCTOR
-will update postop orders/recs
--- NOTE | 2023-11-02 07:49 | PN.CDI ---
CDI
- -
CDI:
Physician Documentation Request
Admit Date: 10/30/23 13:13
Dear Doctor Fran,
Please review the following and provide your response in the progress notes.
Clinical Indicators:
10/29 ED EMS reports patient was found on the floor.
#...Staff is unaware how long she has been on the floor she has baseline
#left wrist fracture, Fall
10/29 H+P
#...Past Surgical History:Gynocological (hysterectomy )
Please provide further specificity regarding the left wrist fracture...:
Multifactorial due to low level trauma and age related osteoporosis
Traumatic fracture only
Other(please specify)
Type Fracture
Age-related With current pathological fx
Drug induced (specify drug) without current pathological fx
Idiopathic
Osteoporosis of disuse
Post traumatic
Post oophorectomy osteoporosis
Use of terms such as suspected, likely, concern for, or probable (associated with a specific diagnosis that is being evaluated, monitored, or treated as if it exists) are acceptable and can be coded in the inpatient setting, when documented at the
time of discharge.
Thank you,
Raya Loredo RN BSN CCDS
CDI Specialist
please contact via tiger text
Please use your independent medical judgment in providing your response.
[2023-11-02 08:00] LABS: % Basophils 0.4 % (0-2); % Eosinophils 2.2 % (0-6); % Immature Granulocytes 0.5 % (0-0.5); % Lymphocytes 10.6 % (20.5-51.1); % Neutrophils 78.3 % (42.2-75.2); Absolute Eosinophils 0.2 10^3/uL (0-0.7); Absolute Immature Granulocytes 0.1 10^3/uL (0-0.05); Absolute Lymphocytes 1.1 10^3/uL (1.2-3.4); Absolute Monocytes 0.8 10^3/uL (0.1-0.6); Hematocrit 38.9 % (37.0-47.0); Mean Corp Hgb Conc. 33.4 g/dL (33.0-37.0); Mean Corpuscular Hgb 35.5 pg (27.0-31.0); Mean Corpuscular Volume 106.3 fL (81.0-99.0); Mean Platelet Volume 9.6 fL (7.4-10.4); Nucleated Red Blood Cells % 0 %; Platelet Count 194 10^3/uL (130-400); Red Blood Cell Count 3.66 10^6/uL (4.20-5.40); Red Cell Dist. Width 14.4 % (11.5-14.5); White Blood Cell Count 10.2 10^3/uL (4.8-10.8)
[2023-11-02] MEDS: COLACE PO (08:14)
[2023-11-02] MEDS: RISPERDAL M-TAB (ORALLY DISINTEGRATING) PO ×2 (08:15→21:22)
[2023-11-02] MEDS: LOPRESSOR PO (08:15)
[2023-11-02] MEDS: SENOKOT PO (08:15)
[2023-11-02] MEDS: SEROQUEL PO (08:15)
[2023-11-02 08:34] LABS: ALT (SGPT) 15 U/L (0-35); AST (SGOT) 33 U/L (14-36); Albumin 3.7 g/dl (3.5-5.0); Alkaline Phosphatase 93 U/L (38-126); Blood Urea Nitrogen 22 mg/dl (7-17); Calcium 9.2 mg/dl (8.4-10.2); Carbon Dioxide 28 mmol/L (22-30); Chloride 106 mmol/L (98-107); Glucose 93 mg/dl (70-99); Potassium 3.7 mmol/L (3.5-5.1); Sodium 144 mmol/L (135-145); Total Bilirubin 0.7 mg/dl (0.2-1.3); Total Protein 6.4 g/dl (6.3-8.2); eGFR > 60.00
[2023-11-02] MEDS: LOPRESSOR 5 MG IV (09:27)
[2023-11-02 09:37] LABS: Folate > 20.0 ng/ml (2.76-20); Vitamin B12 704 pg/ml (239-931)
--- NOTE | 2023-11-02 10:30 | W.PN.HOSP.TC ---
Today's Communication/Plan
-
for OR
PT/OT, afterwards for D/C
Assessment / Plan
Assessment / Plan
83yo F with dementia, afib, severe s/p TAVR, HTN brought to the hospital s/p fall found L radius Fx, planned for ORIF on 11/01/23
Patient is a resident of memory care unit
A/P:
#L radius Fx
Ortho for mgmt: plan for ORIF with regional anesthesia
pain mgmt
Cardio: no further testing or medications adjustment ahead of Sx
While NPO for Sx - IV lopressor
#Fall
unclear if syncope
Patient is extremely demented to provide reasonable Hx
#Paroxysmal Afib
telemetry
Hold Eliquis for Sx
cont rate control
# s/p TAVR
#Essential HTN
#Anxiety d/o
#Dementia, severe, unspecified
cont home meds
#Macrocytosis
chronic, since 05/07
B12, folate WNL
Outpatient hematology if family will consider
DVT ppx on SCDs
DNR/DNI
I have spent at least 39min reviewing chart, test results, communication with consultants and direct patient care
Anticipated Discharge: 24 - 48 hours
Subjective/Interval History
-
Date of Service: November 02, 2023
Objective Data
-
Labs:
Laboratory Results
11/02/23
07:28
WBC 10.2
Hgb 13.0
Hct 38.9
Plt Count 194
Sodium 144
Potassium 3.7
Chloride 106
Carbon Dioxide 28
BUN 22 H
Creatinine 0.7
Glucose 93
Calcium 9.2
Total Bilirubin 0.7
AST 33
ALT 15
Alkaline Phosphatase 93
Vital Signs:
Vital Signs
Temp Pulse Resp BP Pulse Ox
98.4 F 100 20 153/92 95
11/02/23 07:39 11/02/23 09:27 11/02/23 07:39 11/02/23 09:27 11/02/23 07:39
I&O
11/01/23 11/02/23 11/03/23
06:59 06:59 06:59
Intake Total 120 / 120 600 / 600
Balance 120 / 120 600 / 600
Review of Systems
-
Unable to obtain full review of systems at this time due to: Dementia
History Source: Patient
All other systems: Reviewed and negative
Physical Exam
-
General: No Apparent Distress
HEENT: Normocephalic and Atraumatic
Respiratory: Clear to Auscultation
Cardiac: Regular Rhythm
Musculoskeletal: No Clubbing, No Cyanosis and No Edema
Skin: Warm
Neuro: Awake and Alert
Psych: Apparent Dementia
--- NOTE | 2023-11-02 18:40 | W.IMMPOSTOP ---
Surgical Immed Post Op Note
-
Primary Surgeon: Margie
Assisting Surgeon: None
Pre-op Diagnosis: Left distal radius fracture
Post-op Diagnosis: Same
Procedure Performed: Left distal radius ORIF
Anesthesia Type: Sedation and regional
Specimen / Cultures: None
Estimated Blood Loss: 2cc
Complications: None
Operative Findings: Dictated
Plan:
- OLYA BOOKERE, Keep splint intact until f/u
- PT/ OT
--- NOTE | 2023-11-02 18:41 | PTCARENOTE ---
Patient received from PACU in bed; Patient on 2L nasal cannula; Left wrist splint, webrile wrap, and MAINOR wrap clean/dry/intact, +1 edema to fingers, local ecchymosis, brachial pulse +2 to palpation; Patient oriented to self only; Assessment ongoing
--- NOTE | 2023-11-02 20:24 | W.PN.UPDATE ---
Update Note
Progress Note Update
Pharmacist recommended to D/C Risperdal 0.25mg BID, as not in listed in the patient meds list history/ record from home. Checked with nursing staff, patient is sleepy, arousable but not able to give po meds at this time . Will D/C Risperdal as
recommended by the pharmacist.
[2023-11-02] MEDS: LOPRESSOR 50 MG PO (21:09)
[2023-11-02] MEDS: SENOKOT 17.2 MG PO (21:10)
[2023-11-02] MEDS: TYLENOL 650 MG PO ×2 (21:10→23:52)
[2023-11-02] MEDS: COLACE 100 MG PO (21:10)
[2023-11-02] MEDS: SEROQUEL 25 MG PO (21:10)
[2023-11-03] VITALS (7 sets, daily range): BP systolic 90–161; BP diastolic 51–80; PULSE 83; O2SAT 92; BMI 24.5
--- NOTE | 2023-11-03 03:01 | DOWNTIME ---
There was a [employer] Client Client Administrator Downtime on 10/06/2023 from 0100 to 10/06/2023 at 0252. Downtime documentation of patient's care, including medication administrations, has been reconciled in the electronic record per guidelines. Refer to the
patient's paper chart under the miscellaneous tab to see printed paper medication records and downtime forms.
[2023-11-03] MEDS: TYLENOL 650 MG PO ×5 (04:11→22:05)
--- NOTE | 2023-11-03 06:58 | W.PN.ORTHO ---
Today's Communication / Plan
-
83-year-old female POD #1 Left Distal Radius ORIF 11/02/[address] Hanson
- NWMarkie LUKE.
- Splint intact until outpatient follow-up.
- Okay to resume Eliquis.
- Encourage digital ROM.
- Pain control per primary team.
- Ice and elevation for edema control.
- Appreciate CM regarding D/C planning.
Assessment
.
Distal Motor Intact: Yes
Dressing:
Clean, dry and intact.
Splint intact.
Assessment:
POD 1 Left Distal Radius ORIF
Plan
.
Surgery / Date: 11/02/2023 Left Distal Radius ORIF
DVT Prophylaxis: Other
Activity:
Out of bed.
PT/OT
Discharge Information:
Appreciate CM
Subjective
.
.:
Patient resting comfortably.
Vital Signs and Labs
.
Vital Signs and Labs:
Lab Results
11/02/23 07:28
11/02/23 07:28
Temp Pulse Resp BP Pulse Ox
99.4 F 85 18 112/58 94
11/03/23 03:25 11/03/23 03:25 11/03/23 03:25 11/03/23 03:25 11/03/23 03:25
[2023-11-03] MEDS: COLACE 100 MG PO ×2 (08:14→22:05)
[2023-11-03] MEDS: ELIQUIS 2.5 MG PO ×2 (08:14→22:05)
[2023-11-03] MEDS: SENOKOT 17.2 MG PO ×2 (08:14→22:06)
[2023-11-03] MEDS: LOPRESSOR 50 MG PO ×2 (08:14→22:06)
[2023-11-03] MEDS: LEXAPRO 20 MG PO (08:14)
[2023-11-03] MEDS: SEROQUEL 25 MG PO ×2 (08:15→22:05)
[2023-11-03 09:43] LABS: % Basophils 0.1 % (0-2); % Immature Granulocytes 0.4 % (0-0.5); % Lymphocytes 7.3 % (20.5-51.1); % Monocytes 8.2 % (1.7-9.3); Absolute Lymphocytes 0.7 10^3/uL (1.2-3.4); Absolute Monocytes 0.8 10^3/uL (0.1-0.6); Absolute Neutrophils 8.5 10^3/uL (1.4-6.5); Hematocrit 36.1 % (37.0-47.0); Hemoglobin 12.2 g/dL (12.0-16.0); Mean Corp Hgb Conc. 33.8 g/dL (33.0-37.0); Mean Corpuscular Hgb 34.7 pg (27.0-31.0); Mean Corpuscular Volume 102.6 fL (81.0-99.0); Mean Platelet Volume 9.7 fL (7.4-10.4); Nucleated Red Blood Cells % 0 %; Platelet Count 226 10^3/uL (130-400); Red Blood Cell Count 3.52 10^6/uL (4.20-5.40); Red Cell Dist. Width 14.3 % (11.5-14.5); White Blood Cell Count 10.1 10^3/uL (4.8-10.8)
[2023-11-03 10:40] LABS: ALT (SGPT) 15 U/L (0-35); AST (SGOT) 29 U/L (14-36); Albumin 3.8 g/dl (3.5-5.0); Alkaline Phosphatase 78 U/L (38-126); Blood Urea Nitrogen 43 mg/dl (7-17); Calcium 9.1 mg/dl (8.4-10.2); Carbon Dioxide 23 mmol/L (22-30); Chloride 106 mmol/L (98-107); Estimated Creatinine Clearance 38 ml/min; Glucose 117 mg/dl (70-99); Potassium 4.5 mmol/L (3.5-5.1); Sodium 144 mmol/L (135-145); Total Bilirubin 0.6 mg/dl (0.2-1.3); Total Protein 6.6 g/dl (6.3-8.2); eGFR > 60.00
--- NOTE | 2023-11-03 11:53 | CM ---
Reviewed the chart notes and spoke with the patient's daughter Nia via telephone. IMM reviewed and placed on chart. Discussed PT recommendation of SNF/rehab prior transitioning back to [place]. CM spoke with [facility].
They are able to accept the patient tomorrow if medically stable. CM continues to be available to patient/family and is monitoring medical plan for needs at discharge.
Plan: Discharge to [facility] when medically stable. Hopefully .
Call report to: [phone]
Fax report to: [phone]
Medical necessity and transport forms on chart.
--- NOTE | 2023-11-03 13:38 | W.PN.HOSP.TC ---
Addendum entered and electronically signed by Андрей Peters MD 11/03/23 14:27:
Traumatic fracture
Original Note:
Today's Communication/Plan
-
CM for d/c plan - as per note, bed available in rehab on 11/03/23
Assessment / Plan
Assessment / Plan
83yo F with dementia, afib, severe s/p TAVR, HTN brought to the hospital s/p fall found L radius Fx, planned for ORIF on 11/01/23
Patient is a resident of memory care unit
A/P:
#L radius Fx
Ortho for mgmt: ORIF with regional anesthesia done on 11/03/23
pain mgmt
Cardio: no further testing or medications adjustment ahead of Sx
While NPO for Sx - IV lopressor
#Fall
unclear if syncope
Patient is extremely demented to provide reasonable Hx
#Paroxysmal Afib
telemetry
restarted Eliquis as per agreement with ortho
cont rate control
# s/p TAVR
#Essential HTN
#Anxiety d/o
#Dementia, severe, unspecified
cont home meds
#Macrocytosis
chronic, since 05/07
B12, folate WNL
Outpatient hematology if family will consider
DVT ppx on SCDs
DNR/DNI
I have spent at least 39min reviewing chart, test results, communication with consultants and direct patient care
Anticipated Discharge: Within 24 hours
Subjective/Interval History
-
Date of Service: November 03, 2023
Objective Data
-
Labs:
Laboratory Results
11/03/23
09:28
WBC 10.1
Hgb 12.2
Hct 36.1 L
Plt Count 226
Sodium 144
Potassium 4.5
Chloride 106
Carbon Dioxide 23
BUN 43 H
Creatinine 0.9
Glucose 117 H
Calcium 9.1
Total Bilirubin 0.6
AST 29
ALT 15
Alkaline Phosphatase 78
Vital Signs:
Vital Signs
Temp Pulse Resp BP Pulse Ox
97.7 F 68 16 161/59 95
11/03/23 11:16 11/03/23 11:16 11/03/23 11:16 11/03/23 11:16 11/03/23 11:16
I&O
11/02/23 11/03/23 11/04/23
06:59 06:59 06:59
Intake Total 600 / 600 220 / 220
Balance 600 / 600 220 / 220
Review of Systems
-
Unable to obtain full review of systems at this time due to: Dementia
History Source: Patient
All other systems: Reviewed and negative
Physical Exam
-
General: No Apparent Distress
HEENT: Normocephalic
Respiratory: Clear to Auscultation
Cardiac: Irregular Rhythm
Musculoskeletal: No Clubbing, No Cyanosis and No Edema
Neuro: Awake and Alert
Psych: Calm and Apparent Dementia
--- NOTE | 2023-11-03 20:00 | PTCARENOTE ---
During change if shift rounds found pt unraveling rola wrap and taking apart splint on L arm. Pt educated on why to leave arm wrapped. Pt unable to be redirected and agitated continuing to pull off rola wrap. House RADIOGRAPHER ANGIOGRAM made aware. order for R hand
mitt placed.
[2023-11-03] MEDS: DILAUDID 0.25 MG IV (20:04)
[2023-11-04] MEDS: TYLENOL PO ×3 (00:44→11:52)
[2023-11-04 05:30] VITALS: BMI 24.1
[2023-11-04 08:00] VITALS: BP 156/91
--- NOTE | 2023-11-04 08:12 | W.PN.ORTHO ---
Today's Communication / Plan
-
Left upper extremity splint in place
Strict nonweightbearing left upper extremity
Ice and elevate to above level of heart to control swelling/pain
Return to orthopedic office 2 weeks
Orthopedics to sign off for now
Assessment
.
Distal Motor Intact: Yes
Dressing:
Clean, dry and intact.
Plan
.
Surgery / Date: 11/02/2023 Left Distal Radius ORIF
DVT Prophylaxis: Other (Eliquis)
Activity:
Out of bed.
PT/OT
Subjective
.
.:
Patient resting comfortably. She is pleasantly confused.
Vital Signs and Labs
.
Vital Signs and Labs:
Lab Results
11/03/23 09:28
11/03/23 09:28
Temp Pulse Resp BP Pulse Ox
99.0 F 51 18 105/51 93
11/03/23 23:35 11/03/23 23:35 11/03/23 23:35 11/03/23 23:35 11/03/23 23:35
--- NOTE | 2023-11-04 09:01 | W.PN.HOSP.TC ---
Today's Communication/Plan
-
DC
Assessment / Plan
Assessment / Plan
83yo F with dementia- a resident of memory care unit, afib, severe s/p TAVR, HTN brought to the hospital s/p fall found L radius Fx, had ORIF on 11/01/23 with appropriate postOP period. Eliquis restarted. Discussed macrocytosis to be followed
with outpatient queen producer - family will decide with their PCP. Medically stable for d/c
A/P:
#traumatic L radius Fx
Ortho for mgmt: ORIF with regional anesthesia done on 11/03/23
pain mgmt
Cardio: no further testing or medications adjustment ahead of Sx
While NPO for Sx - IV lopressor
#Fall
unclear if syncope
Patient is extremely demented to provide reasonable Hx
No new significant arrhythmia on tele
#Paroxysmal Afib
telemetry
restarted Eliquis as per agreement with ortho
cont rate control
# s/p TAVR
#Essential HTN
#Anxiety d/o
#Dementia, severe, unspecified
cont home meds
#Macrocytosis
chronic, since 05/07
B12, folate WNL
Outpatient hematology if family will consider
DVT ppx on SCDs
DNR/DNI
I have spent at least 39min reviewing chart, test results, communication with consultants and direct patient care
Anticipated Discharge: Today
Subjective/Interval History
-
Date of Service: November 04, 2023
Objective Data
-
Vital Signs:
Vital Signs
Temp Pulse Resp BP Pulse Ox
98.7 F 72 22 156/91 98
11/04/23 08:00 11/04/23 08:00 11/04/23 08:00 11/04/23 08:00 11/04/23 08:00
I&O
11/03/23 11/04/23 11/05/23
06:59 06:59 06:59
Intake Total 220 / 220 900 / 900
Balance 220 / 220 900 / 900
Review of Systems
-
Unable to obtain full review of systems at this time due to: Dementia
History Source: Patient
Physical Exam
-
General: No Apparent Distress
HEENT: Hearing Impaired
Respiratory: Clear to Auscultation
Cardiac: Irregular Rhythm
GI: Soft, Nontender and Nondistended
Musculoskeletal: No Clubbing, No Cyanosis and No Edema
Neuro: Awake and Alert
Psych: Calm
--- NOTE | 2023-11-04 09:06 | W.DCSUMMARY ---
Discharge Summary
Discharge Data
Date of Admission: 10/30/23
Date of Discharge: 11/04/23
-
Pending Results: No
Hospital Course
83yo F with dementia- a resident of memory care unit, afib, severe s/p TAVR, HTN brought to the hospital s/p fall found L radius Fx, had ORIF on 11/01/23 with appropriate postOP period. Eliquis restarted. Discussed macrocytosis to be followed
with outpatient hand dry cleaner - family will decide with their PCP. Medically stable for d/c. Outpatient follow up with ortho in 2 weeks and strict NWB on LUE advised
I have spent at least 38min discharging the patient
A/P:
#traumatic L radius Fx, unclear if 2/2 osteoporosis
#Fall
#Paroxysmal Afib
# s/p TAVR
#Essential HTN
#Anxiety d/o
#Dementia, severe, unspecified
#Macrocytosis
#DJD
#ASCVD with ICA plaques
#R knee contussion
#Concern for osteoporosis on XR - PCP to follow, 2/2 Fx - advised delay in bisphosphonate therapy to allow healing
Discharge Plan
-
Patient Disposition: Care Home/SNF
Discharge Diagnosis/Procedures: LUE fracture
Diet: Regular
Activity: Other activity
Additional Activity: NWB LUE
Other Services: PT and OT
Activity Restrictions/Additional Instructions:
strict NWB on LUE
Referrals:
Rob Hanson MD [Active] - in two weeks
UNKNOWN - PT DOES,NOT KNOW [Family Provider] -
Prescriptions:
Continued
tramadol 50 MG tablet
50 mg PO Q8HPRN PRN (Reason: moderate pain)
quetiapine 25 mg Tablet
50 mg PO BID
haloperidol 0.5 mg Tablet
0.5 mg PO DAILYPRN PRN (Reason: agitation/combativness/acute uti)
acetaminophen 500 mg Tablet
1,000 mg PO DAILY
escitalopram oxalate 20 mg tablet
20 mg PO DAILY
metoprolol tartrate 25 mg Tablet
25 mg PO BID
multivitamin with folic acid [Therems Multivitamin] 400 mcg Tablet
1 tab PO DAILY
apixaban 2.5 mg Tablet
2.5 mg PO BID
Beneprotein 6 gram-25 kcal/7 gram Powder In Packet
1 ea PO DAILY
Discharge Orders:
Discharge Patient (As Directed); Ordered 11/04/23
Ordered By: Андрей Peters
Discharge Date and Time
Print Language: BRAZILIAN
[2023-11-04] MEDS: LOPRESSOR 50 MG PO (09:57)
[2023-11-04] MEDS: SEROQUEL 25 MG PO (09:57)
[2023-11-04] MEDS: COLACE 100 MG PO (09:57)
[2023-11-04] MEDS: TYLENOL 650 MG PO (09:57)
[2023-11-04] MEDS: LEXAPRO 20 MG PO (09:57)
[2023-11-04] MEDS: ELIQUIS 2.5 MG PO (09:57)
[2023-11-04] MEDS: SENOKOT 17.2 MG PO (09:57)
[2023-11-04] MEDS: ROXICODONE 5 MG PO (10:38)
--- NOTE | 2023-11-04 10:45 | CM ---
Plan: Discharge to [facility] today.
Call report to: [phone]
Fax report to: [phone]
Medical necessity and transport forms on chart.
[2023-11-04 13:52] VITALS: BP 147/65
== END 2023-11-04 13:24 | DRG 511 ==
LOC: 2 SOUTH 13:13
PROVIDERS: Internal Medicine; Nurse Practitioner; ADMITTING PHYSICIAN Internal Medicine; ATTENDING PHYSICIAN Internal Medicine; CONSULT PHYSICIAN Orthopaedic Surgery; EMERGENCY PHYSICIAN Emergency Medicine; OTHER PHYSICIAN Internal Medicine Cardiovascular Disease
PROC: 0PSJ04Z Reposition Left Radius with Internal Fixation Device, Open Approach (ICD-10-PCS; 2023-11-02)
DX: S52.572A Other intraarticular fracture of lower end of left radius, initial encounter for closed fracture (principal); F03.C3 Unspecified dementia, severe, with mood disturbance; F03.C4 Unspecified dementia, severe, with anxiety; I47.19 Other supraventricular tachycardia; Z66 Do not resuscitate; S80.01XA Contusion of right knee, initial encounter; I48.0 Paroxysmal atrial fibrillation; R29.6 Repeated falls; I35.0 Nonrheumatic aortic (valve) stenosis; I10 Essential (primary) hypertension; I25.10 Atherosclerotic heart disease of native coronary artery without angina pectoris; H91.90 Unspecified hearing loss, unspecified ear; D75.89 Other specified diseases of blood and blood-forming organs; W19.XXXA Unspecified fall, initial encounter; Z95.2 Presence of prosthetic heart valve; Z91.040 Latex allergy status; Z88.5 Allergy status to narcotic agent; Z88.3 Allergy status to other anti-infective agents; Z88.2 Allergy status to sulfonamides; Z79.899 Other long term (current) drug therapy; Z79.01 Long term (current) use of anticoagulants
CPT/HCPCS: 29125; 51701; 70450; 72125; 73110; 73564; 76000; 80048; 80053; 81003; 82550; 82607; 82746; 85025; 87070; 93005; 93306; 96374; 97163; 97167; 97168; 97530; 97535; 99285; C1713

== ENCOUNTER 2023-11-05 12:02 | Emergency (ER) | payer MEDICARE, BC, SELFPAY ==
[2023-11-05 12:05] VITALS: BP 92/54
[2023-11-05 12:07] VITALS: BP 92/54
[2023-11-05 12:08] VITALS: BP 106/54
[2023-11-05 12:09] VITALS: BP 106/54
[2023-11-05 12:59] LABS: % Basophils 0.4 % (0-2); % Eosinophils 0.8 % (0-6); % Immature Granulocytes 0.4 % (0-0.5); % Lymphocytes 11.6 % (20.5-51.1); % Monocytes 8.7 % (1.7-9.3); % Neutrophils 78.1 % (42.2-75.2); Absolute Eosinophils 0.1 10^3/uL (0-0.7); Absolute Lymphocytes 1.2 10^3/uL (1.2-3.4); Absolute Monocytes 0.9 10^3/uL (0.1-0.6); Hematocrit 38.4 % (37.0-47.0); Mean Corp Hgb Conc. 33.9 g/dL (33.0-37.0); Mean Corpuscular Hgb 35.6 pg (27.0-31.0); Mean Corpuscular Volume 105.2 fL (81.0-99.0); Mean Platelet Volume 10.1 fL (7.4-10.4); Nucleated Red Blood Cells % 0 %; Platelet Count 225 10^3/uL (130-400); Red Blood Cell Count 3.65 10^6/uL (4.20-5.40); Red Cell Dist. Width 13.8 % (11.5-14.5); White Blood Cell Count 10.2 10^3/uL (4.8-10.8)
[2023-11-05 13:15] LABS: ALT (SGPT) 11 U/L (0-35); AST (SGOT) 29 U/L (14-36); Albumin 3.6 g/dl (3.5-5.0); Alkaline Phosphatase 79 U/L (38-126); Blood Urea Nitrogen 36 mg/dl (7-17); Calcium 8.8 mg/dl (8.4-10.2); Carbon Dioxide 25 mmol/L (22-30); Chloride 104 mmol/L (98-107); Estimated Creatinine Clearance 60 ml/min; Glucose 108 mg/dl (70-99); Potassium 4.1 mmol/L (3.5-5.1); Sodium 139 mmol/L (135-145); Total Bilirubin 0.6 mg/dl (0.2-1.3); Total Protein 6.2 g/dl (6.3-8.2); eGFR > 60.00
--- NOTE | 2023-11-05 15:38 | ED.GENMED ---
History of Present Illness
General
Chief Complaint: Cardiac Symptoms
Source: family (Daughter), ambulance crew and [facility] records
Exam Limitations: dementia
Time Seen by Provider: 11/05/23 12:11
Nursing documentation reviewed up to this point in time: agreed with
History of Present Illness
History of Present Illness:
83-year-old female with a past medical history of hypertension, atrial fibrillation on Eliquis, dementia who presents to the emergency room from [facility] where she currently is in rehab for a left arm fracture; she presents with her daughter via EMS
for evaluation after an episode of tachycardia. Patient is very limited as a historian due to her dementia. Daughter says that at baseline she would walk 'not well' with a walker but after breaking her arm has been bedbound. Daughter says that
mental status is waxing and waning 'depending on what time it is and how much medication she has on board.' She is frequently very lethargic but will intermittently become agitated. Reviewed paperwork from [facility]�patient apparently had an
episode of tachycardia noted that [facility] with heart rate in the 140s and an EKG there showed atrial fibrillation with RVR (I was able to review EKG from [facility] at bedside). She was apparently given a dose of metoprolol 25 mg p.o.
immediately and EMS was called to bring her to the hospital. Apparently after discussion with physician at [facility] plan was to ultimately increase her metoprolol to 50 mg twice daily after ER evaluation. Fortunately A-fib seems to have
resolved. Patient is resting comfortably, awakes to physical stimuli, hard of hearing�she is at her baseline according to daughter who is at bedside.
Past History
Past History
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
ED Past Surgical History: Cardiac (cardiac ablation), Gynecological (hysterectomy) and Orthopedic (L rotator cuff, B/L foot surgery)
Social History
Tobacco: Non-smoker
Alcohol: None
Drug: None
Personal:
Living: [facility] ([facility] dementia unit)
Family History
Family History: Other (noncontributory)
Review of Systems
Review of Systems
Unable to obtain full review of systems at this time due to: dementia
All Other Systems: Not applicable
Phy Exam
Physical Exam
Physical Exam:
General: Laying in bed sleeping but arousable, chronically ill-appearing
Head: Normocephalic, atraumatic
Eyes: Conjunctiva normal
Throat: Airway intact, handling secretions
Neck: Trachea midline, supple without meningismus
Lungs: Clear to auscultation bilaterally, no wheezing, rales, rhonchi
Heart: Regular rate and rhythm, faint systolic murmur
Abd: Soft, non distended, no apparent tenderness
Extremities: No edema in extremities, equal pulses in all extremities
Scores
Heart Failure Risk
Heart Failure Risk Score: Not Applicable
Heart Score for Chest Pain Patients
STEMI patient?: Not applicable
Withdrawal Assessment of Alcohol
Withdrawal Assessment Completed?: Not applicable
Course
Orders/Labs/Results
Orders:
Orders
11/05/23
Electrocardiogram (*1) Stat
Reason for Study: Chest Pain
Comment: already done
11/05/23 12:50
Complete Blood Count/With Diff Urgent
Comprehensive Metabolic Panel Urgent
Abnormal Lab Results
11/05/23
12:50
RBC 3.65 L 10^6/uL
(4.20-5.40)
MCV 105.2 H fL
(81.0-99.0)
MCH 35.6 H pg
(27.0-31.0)
Absolute Neuts (auto) 8.0 H 10^3/uL
(1.4-6.5)
Absolute Monos (auto) 0.9 H 10^3/uL
(0.1-0.6)
Neutrophils % 78.1 H %
(42.2-75.2)
Lymphocytes % 11.6 L %
(20.5-51.1)
BUN 36 H mg/dl
(7-17)
Glucose 108 H mg/dl
(70-99)
Total Protein 6.2 L g/dl
(6.3-8.2)
11/05/23 12:50
11/05/23 12:50
Vital Signs
Initial and Last Documented VS:
Initial Vital Signs
Pulse Resp BP
54 15 92/54
11/05/23 12:05 11/05/23 12:05 11/05/23 12:05
Last Documented Vital Signs
Temp Pulse Resp BP Pulse Ox
36.6 C 63 18 106/54 93
11/05/23 12:08 11/05/23 12:45 11/05/23 14:00 11/05/23 12:09 11/05/23 12:30
MDM/Problems Addressed
Differential Diagnosis Includes:
Atrial fibrillation, resolved
MDM/Problems Addressed:
83-year-old female presents to the emergency room from rehab after an episode of rapid atrial fibrillation. She was given 25 mg of p.o. metoprolol and she is now back to his sinus rhythm here. Vitals normal on my assessment. Triage note mention
'sinus with pauses'�reviewed telemetry strip she is having sinus rhythm with PACs and compensatory pause but no sinus pauses. She is at her baseline mental status. Will check labs to rule out any anemia or electrolyte derangements. Monitor on
telemetry. If no recurrence and remains in sinus rhythm can likely be discharged.
Labs reviewed: CBC and CMP no clinically significant abnormalities. Patient has remained in sinus rhythm throughout ER visit. Stable for discharge�physician from [facility] plan was to increase metoprolol to 50 mg twice daily this seems
appropriate. Daughter feels comfortable with discharge back to [facility]. All questions answered.
Chronic conditions affecting care:
Atrial fibrillation
*Pulse Oximetry
Patient hypoxic: no
*EKG
Interpreted by ED Provider?: Yes
Heart Rate: 61
Rate: normal
Rhythm: sinus and PAC's
[place]: left axis deviation
Interval: normal interval
QRS Pattern: normal QRS
Ischemia: T-wave inversion
*Critical Care Note
Total Time (30-74mins, 75-104mins- exclusive of procedures): Not Applicable
Data Reviewed
Review of Other/Old Records Reveals: Records (Reviewed [facility] records including external EKG from [facility])
Source: patient, records, family and ambulance crew
Patient Management
Social determinants of health affecting care: Living situation (Patient lives in monitored setting at present) and Strong social support
ED Attending Note
-
Portions of this chart may have been created with voice recognition software.� Occasional wrong word or��sound alike� substitutions may have occurred due to the inherent limitations of voice recognition software.
Discharge Plan
Departure
Patient Disposition: Home (Routine Discharge)
Date of Disposition: 11/05/23
Time of Disposition: 14:08
Patient with high blood pressure during this ER visit?: No
Discharge Problem:
Atrial fibrillation, currently in sinus rhythm
Instructions: Atrial Fibrillation (DC)
Prescriptions:
No Action
tramadol 50 MG tablet
50 mg PO Q8HPRN PRN (Reason: moderate pain)
quetiapine 25 mg Tablet
50 mg PO BID
haloperidol 0.5 mg Tablet
0.5 mg PO DAILYPRN PRN (Reason: agitation/combativness/acute uti)
acetaminophen 500 mg Tablet
1,000 mg PO DAILY
escitalopram oxalate 20 mg tablet
20 mg PO DAILY
metoprolol tartrate 25 mg Tablet
25 mg PO BID
multivitamin with folic acid [Therems Multivitamin] 400 mcg Tablet
1 tab PO DAILY
apixaban 2.5 mg Tablet
2.5 mg PO BID
Beneprotein 6 gram-25 kcal/7 gram Powder In Packet
1 ea PO DAILY
Referrals:
Ishan Avelar MD [Family Provider] - Follow up in 2-3 days
Activity Restrictions/Additional Instructions:
Thank you for visiting the Emergency Department at [facility].
1. Please schedule a follow up appointment as directed. Call first thing tomorrow morning to make an appointment.
2. If indicated, please take your medications as instructed and indicated on discharge paperwork.
3. If any of your symptoms do not improve, or persist, or become more severe within 6-12 hours, please return to the emergency department for further care.
4. Please return to the emergency department if you develop a headache, neck pain/stiffness, fever greater than 100.4F, chest pain, shortness of breath, persistent nausea, vomiting, slurred speech, difficulty walking, numbness/tingling, weakness,
signs of infection or any other symptoms that are worrisome to you.
Please call [phone] if you have any questions.
Interventions
Interventions:
*General Assessment Last Done: 11/05/23 12:48
*Neglect/Abuse Screening Last Done: 11/05/23 12:49
*ED COVID-19 Vaccine History Last Done: 11/05/23 12:48
ED- Pulmonary Assessment Last Done: 11/05/23 12:54
ED- Cardiac Assessment Last Done: 11/05/23 12:53
Discharge Date and Time
Print Language: ARABIC
[2023-11-05 19:09] VITALS: BP 126/88
== END 2023-11-05 23:04 | disposition home or self-care (01) ==
LOC: EMR 12:02
PROVIDERS: EMERGENCY PHYSICIAN Emergency Medicine; FAMILY PHYSICIAN Family Medicine
DX: I48.91 Unspecified atrial fibrillation (principal); I10 Essential (primary) hypertension; Z79.01 Long term (current) use of anticoagulants; F03.90 Unspecified dementia, unspecified severity, without behavioral disturbance, psychotic disturbance, mood disturbance, and anxiety
CPT/HCPCS: 99284; 80053; 85025; 93005

== ENCOUNTER → 2023-11-09 10:35 | Outpatient (REF) | payer OTHER, MEDICARE, BC, SELFPAY ==
[2023-11-09 11:47] LABS: Hematocrit 38.4 % (37.0-47.0); Hemoglobin 12.7 g/dL (12.0-16.0); Mean Corp Hgb Conc. 33.1 g/dL (33.0-37.0); Mean Corpuscular Volume 105.8 fL (81.0-99.0); Mean Platelet Volume 10.5 fL (7.4-10.4); Platelet Count 266 10^3/uL (130-400); Red Blood Cell Count 3.63 10^6/uL (4.20-5.40); Red Cell Dist. Width 14.1 % (11.5-14.5); White Blood Cell Count 10.1 10^3/uL (4.8-10.8)
[2023-11-09 12:42] LABS: Blood Urea Nitrogen 57 mg/dl (7-17); Calcium 8.9 mg/dl (8.4-10.2); Carbon Dioxide 24 mmol/L (22-30); Chloride 106 mmol/L (98-107); Glucose 83 mg/dl (70-99); Potassium 3.9 mmol/L (3.5-5.1); Sodium 143 mmol/L (135-145); eGFR 41.06
== END ==
LOC: OLABP 10:35
PROVIDERS: ATTENDING PHYSICIAN Family Medicine
DX: I48.0 Paroxysmal atrial fibrillation (principal); I10 Essential (primary) hypertension; F03.90 Unspecified dementia, unspecified severity, without behavioral disturbance, psychotic disturbance, mood disturbance, and anxiety; D75.89 Other specified diseases of blood and blood-forming organs; S62.102D Fracture of unspecified carpal bone, left wrist, subsequent encounter for fracture with routine healing
CPT/HCPCS: 36415; 80048; 85027

== ENCOUNTER → 2023-11-12 09:27 | Outpatient (REF) | payer OTHER, MEDICARE, BC, SELFPAY ==
[2023-11-12 10:26] LABS: Blood Urea Nitrogen 33 mg/dl (7-17); Glucose 92 mg/dl (70-99)
[2023-11-12 10:27] LABS: Calcium 9.7 mg/dl (8.4-10.2); Carbon Dioxide 27 mmol/L (22-30); Chloride 104 mmol/L (98-107); Potassium 4.3 mmol/L (3.5-5.1); Sodium 142 mmol/L (135-145); eGFR > 60.00
== END ==
LOC: OLABP 09:27
PROVIDERS: ATTENDING PHYSICIAN Family Medicine
DX: I48.0 Paroxysmal atrial fibrillation (principal); I10 Essential (primary) hypertension; F03.90 Unspecified dementia, unspecified severity, without behavioral disturbance, psychotic disturbance, mood disturbance, and anxiety; D75.89 Other specified diseases of blood and blood-forming organs; S62.102D Fracture of unspecified carpal bone, left wrist, subsequent encounter for fracture with routine healing
CPT/HCPCS: 36415; 80048

== ENCOUNTER → 2023-11-23 12:02 | Outpatient (REF) | payer OTHER, MEDICARE, BC, SELFPAY ==
[2023-11-23 12:30] LABS: % Basophils 0.9 % (0-2); % Eosinophils 4.3 % (0-6); % Immature Granulocytes 0.2 % (0-0.5); % Lymphocytes 29.5 % (20.5-51.1); % Monocytes 10.7 % (1.7-9.3); % Neutrophils 54.4 % (42.2-75.2); Absolute Basophils 0.1 10^3/uL (0-0.2); Absolute Eosinophils 0.3 10^3/uL (0-0.7); Absolute Lymphocytes 1.7 10^3/uL (1.2-3.4); Absolute Monocytes 0.6 10^3/uL (0.1-0.6); Absolute Neutrophils 3.2 10^3/uL (1.4-6.5); Hematocrit 36.3 % (37.0-47.0); Mean Corp Hgb Conc. 33.1 g/dL (33.0-37.0); Mean Corpuscular Hgb 35.4 pg (27.0-31.0); Mean Corpuscular Volume 107.1 fL (81.0-99.0); Mean Platelet Volume 10.4 fL (7.4-10.4); Nucleated Red Blood Cells % 0 %; Platelet Count 198 10^3/uL (130-400); Red Blood Cell Count 3.39 10^6/uL (4.20-5.40); Red Cell Dist. Width 13.1 % (11.5-14.5); White Blood Cell Count 5.8 10^3/uL (4.8-10.8)
[2023-11-23 13:48] LABS: Blood Urea Nitrogen 36 mg/dl (7-17); Calcium 9.3 mg/dl (8.4-10.2); Carbon Dioxide 27 mmol/L (22-30); Chloride 104 mmol/L (98-107); Glucose 76 mg/dl (70-99); Potassium 4.2 mmol/L (3.5-5.1); Sodium 143 mmol/L (135-145); eGFR > 60.00
== END ==
LOC: OLABP 12:02
PROVIDERS: ATTENDING PHYSICIAN Family Medicine
DX: I48.0 Paroxysmal atrial fibrillation (principal); I10 Essential (primary) hypertension; F03.90 Unspecified dementia, unspecified severity, without behavioral disturbance, psychotic disturbance, mood disturbance, and anxiety; D75.89 Other specified diseases of blood and blood-forming organs; S62.102D Fracture of unspecified carpal bone, left wrist, subsequent encounter for fracture with routine healing
CPT/HCPCS: 36415; 80048; 85025

== ENCOUNTER → 2024-02-17 14:00 | Outpatient (REF) | payer MEDICARE, BC, SELFPAY | LOC: OLABP 14:00 | PROVIDERS: ATTENDING PHYSICIAN Family Medicine | DX: N39.0 Urinary tract infection, site not specified (principal) | CPT/HCPCS: 87077; 87086 ==

== ENCOUNTER 2024-04-01 09:20 | Emergency (ER) | payer MEDICARE, BC, SELFPAY ==
[2024-04-01 09:26] VITALS: BP 108/61
[2024-04-01 09:34] VITALS: BMI 25.8
[2024-04-01 10:00] VITALS: BP 111/75
[2024-04-01 10:09] LABS: % Basophils 0.2 % (0-2); % Immature Granulocytes 0.7 % (0-0.5); % Lymphocytes 10.3 % (20.5-51.1); % Monocytes 10.3 % (1.7-9.3); % Neutrophils 78.5 % (42.2-75.2); Absolute Lymphocytes 0.5 10^3/uL (1.2-3.4); Absolute Monocytes 0.5 10^3/uL (0.1-0.6); Absolute Neutrophils 3.6 10^3/uL (1.4-6.5); Hematocrit 35.8 % (37.0-47.0); Mean Corp Hgb Conc. 33.5 g/dL (33.0-37.0); Mean Corpuscular Hgb 34.8 pg (27.0-31.0); Mean Corpuscular Volume 103.8 fL (81.0-99.0); Mean Platelet Volume 10.3 fL (7.4-10.4); Nucleated Red Blood Cells % 0 %; Platelet Count 150 10^3/uL (130-400); Red Blood Cell Count 3.45 10^6/uL (4.20-5.40); Red Cell Dist. Width 12.7 % (11.5-14.5); White Blood Cell Count 4.6 10^3/uL (4.8-10.8)
[2024-04-01 10:18] LABS: Urine Albumin 2+ (Neg - Trace); Urine Bilirubin Negative (Negative); Urine Character Clear (Clear); Urine Color Yellow; Urine Glucose Negative (Negative); Urine Ketone Negative (Negative); Urine Leukocyte Negative (Negative); Urine Nitrite Negative (Negative); Urine Occult Blood Negative (Negative); Urine Urobilinogen 1+ (Neg - 1+)
--- NOTE | 2024-04-01 10:28 | ED.GENMED ---
History of Present Illness
General
Chief Complaint: Change in Mental Status
Source: ambulance crew
Time Seen by Provider: 04/01/24 09:49
History of Present Illness
History of Present Illness:
84-year-old female sent to the emergency room from [facility] due to lethargy and difficult to arouse. Patient was noted to have symptoms late this morning. No known fever. Patient does not offer any complaints when aroused though she does not stay
awake for very long and is quite hard of hearing.
Past History
Past History
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
ED Past Surgical History: Cardiac (cardiac ablation), Gynecological (hysterectomy) and Orthopedic (L rotator cuff, B/L foot surgery)
Social History
Tobacco: Non-smoker
Alcohol: None
Drug: None
Personal:
Living: assisted ([facility] unit)
Family History
Family History: Other (noncontributory)
Phy Exam
Physical Exam
Physical Exam:
General: Sleeping but is arousable. Appears confused and is quite hard of hearing. Falls back to sleep relatively quickly
Vitals: unremarkable
Head: Atraumatic
Eyes: Pupils equal, EOMI
Throat: Airway intact, no exudates, dry mucosa
Neck: Trachea midline
Lungs: Clear and equal b/l
Heart: Regular rate, no murmurs
Abd: Soft, Nontender, No pulsatile mass
Neuro: Grossly nonfocal
Skin: Warm, dry, no rash
Extremities: pulses equal b/l, no edema
Course
Orders/Labs/Results
Orders:
Orders
04/01/24 09:38
Electrocardiogram (*1) Urgent
Reason for Study: Atrial Fibrillation
04/01/24 09:39
EKG- Treatment ONCE
04/01/24 09:45
Complete Blood Count/With Diff Urgent
Urinalysis Reflex To Culture Urgent
Date Specimen was Collected: 04/01/24
Time Specimen was Collected: 09:39
Urine Microscopic Reflex Cult Urgent
04/01/24 09:59
CT Head W/o Iv Contrast Urgent
Comment:
Reason For Exam: altered mental status
04/01/24 11:45
Comprehensive Metabolic Panel Urgent
04/01/24 13:11
COVID-19 Antigen Urgent
Source: Nasal Swab
Influenza A+B Rapid Molecular Urgent
SRIDHAR Source: Nasal Swab
Specimen Description:
Date Specimen was Collected: 04/01/24
Time Specimen was Collected: 13:06
RSV [Respiratory Syncytial Virus] Urgent
SRIDHAR Source: Nasalpharynx
Specimen Description:
Date Specimen was Collected: 04/01/24
Time Specimen was Collected: 13:06
Abnormal Lab Results
04/01/24 04/01/24
09:45 11:45
WBC 4.6 L 10^3/uL
(4.8-10.8)
RBC 3.45 L 10^6/uL
(4.20-5.40)
Hct 35.8 L %
(37.0-47.0)
MCV 103.8 H fL
(81.0-99.0)
MCH 34.8 H pg
(27.0-31.0)
Absolute Lymphs (auto) 0.5 L 10^3/uL
(1.2-3.4)
Immature Gran % 0.7 H %
(0-0.5)
Neutrophils % 78.5 H %
(42.2-75.2)
Lymphocytes % 10.3 L %
(20.5-51.1)
Monocytes % 10.3 H %
(1.7-9.3)
Sodium 133 L mmol/L
(135-145)
BUN 24 H mg/dl
(7-17)
Glucose 116 H mg/dl
(70-99)
Calcium 8.1 L mg/dl
(8.4-10.2)
Total Protein 6.0 L g/dl
(6.3-8.2)
Urine Albumin (Reflex) 2+ A
(Neg - Trace)
04/01/24 09:45
04/01/24 11:45
Vital Signs
Initial and Last Documented VS:
Initial Vital Signs
Temp Pulse Resp BP Pulse Ox
98.6 F 100 16 108/61 92
04/01/24 09:26 04/01/24 09:26 04/01/24 09:26 04/01/24 09:26 04/01/24 09:26
Last Documented Vital Signs
Temp Pulse Resp BP Pulse Ox
98.6 F 61 15 125/54 94
04/01/24 09:26 04/01/24 13:45 04/01/24 13:30 04/01/24 13:00 04/01/24 13:45
MDM/Problems Addressed
Differential Diagnosis Includes:
Dehydration, CVA, subdural, urinary tract infection
MDM/Problems Addressed:
Patient presents with difficulty being aroused sleeping more. No fever here. Patient observed for several hours. She ultimately began conversing at her baseline with family. Workup here reveals positive influenza test. Otherwise no acute
abnormalities. Patient stable for discharge back to the facility.
*Radiology
Radiology exam reviewed: radiology read reviewed
*Pulse Oximetry
Patient hypoxic: no
*Host/Hostess Interpretation
Rate: normal
Interpretation: normal
Rhythm: sinus
*Critical Care Note
Total Time (30-74mins, 75-104mins- exclusive of procedures): Not Applicable
ED Attending Note
-
Portions of this chart may have been created with voice recognition software.� Occasional wrong word or��sound alike� substitutions may have occurred due to the inherent limitations of voice recognition software.
Discharge Plan
Departure
Patient Disposition: Prison/SNF
Date of Disposition: 04/01/24
Time of Disposition: 13:02
Condition: Fair
Discharge Problem:
Dementia, Influenza A
Instructions: Flu, Dementia (DC)
Prescriptions:
No Action
tramadol 50 MG tablet
50 mg PO Q8HPRN PRN (Reason: moderate pain)
quetiapine 25 mg Tablet
50 mg PO BID
haloperidol 0.5 mg Tablet
0.5 mg PO DAILYPRN PRN (Reason: agitation/combativness/acute uti)
acetaminophen 500 mg Tablet
1,000 mg PO DAILY
escitalopram oxalate 20 mg tablet
20 mg PO DAILY
metoprolol tartrate 25 mg Tablet
25 mg PO BID
multivitamin with folic acid [Therems Multivitamin] 400 mcg Tablet
1 tab PO DAILY
apixaban 2.5 mg Tablet
2.5 mg PO BID
Beneprotein 6 gram-25 kcal/7 gram Powder In Packet
1 ea PO DAILY
Referrals:
Ishan Avelar MD [Family Provider] -
Interventions
Interventions:
*Risk Screen - Suicide Last Done: 04/01/24 09:26
*General Assessment Last Done: 04/01/24 09:26
*Neglect/Abuse Screening Last Done: 04/01/24 09:26
ED- Fall Risk Assessment Last Done: 04/01/24 14:11
*ED COVID-19 Vaccine History Last Done: 04/01/24 11:08
*Nursing Disposition Last Done: 04/01/24 14:11
ED- Pulmonary Assessment Last Done: 04/01/24 14:11
ED-Psychological Assessment Last Done: 04/01/24 14:11
ED- Neurological Assessment Last Done: 04/01/24 09:49
ED- Cardiac Assessment Last Done: 04/01/24 14:11
Discharge Date and Time
Discharge Date/Time: 04/01/24 14:12
Print Language: MONGOLIAN
[2024-04-01 10:38] LABS: Urine Red Blood Cell None Seen /HPF (0-2); Urine Squamous Cell 0-2 /LPF (Few); Urine White Cell 0-2 /HPF (0-5)
[2024-04-01 11:10] VITALS: BP 125/66
[2024-04-01 12:00] VITALS: BP 131/67
[2024-04-01 12:26] LABS: ALT (SGPT) 16 U/L (0-35); AST (SGOT) 31 U/L (14-36); Albumin 3.5 g/dl (3.5-5.0); Alkaline Phosphatase 70 U/L (38-126); Blood Urea Nitrogen 24 mg/dl (7-17); Calcium 8.1 mg/dl (8.4-10.2); Carbon Dioxide 27 mmol/L (22-30); Chloride 99 mmol/L (98-107); Estimated Creatinine Clearance 42 ml/min; Glucose 116 mg/dl (70-99); Potassium 3.5 mmol/L (3.5-5.1); Sodium 133 mmol/L (135-145); Total Bilirubin 0.6 mg/dl (0.2-1.3); eGFR > 60.00
[2024-04-01 13:00] VITALS: BP 125/54
[2024-04-01 13:37] LABS: COVID-19 Antigen Negative (Negative)
== END 2024-04-01 14:12 ==
LOC: EMR 09:20
PROVIDERS: EMERGENCY PHYSICIAN Emergency Medicine; FAMILY PHYSICIAN Family Medicine
DX: J10.1 Influenza due to other identified influenza virus with other respiratory manifestations (principal); F03.90 Unspecified dementia, unspecified severity, without behavioral disturbance, psychotic disturbance, mood disturbance, and anxiety; Z11.52 Encounter for screening for COVID-19
CPT/HCPCS: 99285; 70450; 80053; 81003; 81015; 85025; 87502; 87807; 87811; 93005

== ENCOUNTER 2024-05-23 11:01 | Inpatient (IN) | payer MEDICARE, BC, SELFPAY ==
[2024-05-22 11:36] VITALS: BP 175/90
[2024-05-22 11:45] VITALS: BMI 22.7
--- NOTE | 2024-05-22 13:43 | ED.GENMED ---
History of Present Illness
General
Chief Complaint: Fall
Time Seen by Provider: 05/22/24 11:51
History of Present Illness
History of Present Illness:
84-year-old female with history of dementia and A-fib (previously on Eliquis, stopped approx 3 wk ago) presents to the emergency department for evaluation after a fall. She apparently walked into another resident's room when she fell, was able to
crawl out of the room to seek help from the nurses station. On arrival there was pulsatile bleeding to the left scalp as well as a noticeable deformity to the left lower extremity. Patient is deaf at baseline requires a cochlear implant which she
is not using thus other history is unobtainable, patient was not cooperative with attempts at communicating through written word
Past History
Past History
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
ED Past Surgical History: Cardiac (cardiac ablation), Gynecological (hysterectomy) and Orthopedic (L rotator cuff, B/L foot surgery)
Social History
Tobacco: Non-smoker
Alcohol: None
Drug: None
Personal:
Living: retirement ([facility])
Family History
Family History: Other (noncontributory)
Review of Systems
Review of Systems
Allergies reviewed?: Yes
All Other Systems: ROS reviewed and negative except as documented in HPI and ROS
Phy Exam
Physical Exam
Physical Exam:
GEN: Well appearing, NAD, WDWN
HEENT: 4 cm full-thickness laceration to the left temporal scalp with copious pulsatile bleeding, moderate hematoma surrounding the wound; oral mucosa moist, no scleral icterus
Cardiac: Regular rate
Lung: No respiratory distress, no tachypnea
MSK: Deformity to the left distal quad with a deep sulcus and a palpable femur/patella suggesting distal quad tendon rupture
Skin: Good color, no pallor or jaundice, no rashes
Neuro: AO x3, moves all extremities freely
Psych: Calm, cooperative
Course
Orders/Labs/Results
Orders:
Orders
05/22/24 11:42
CT Cervical Spine W/o Iv Contr Urgent
Comment:
Reason For Exam: trauma
CT Head W/o Iv Contrast Urgent
Comment:
Reason For Exam: Trauma
05/22/24 11:43
CR Femur - Left Min 2 Vw Urgent
Comment:
Reason For Exam: trauma
CR Hip - LT w/wo Pel 2-3 Vw* Urgent
Comment:
Reason For Exam: trauma
Include a pelvis x-ray?: Yes
05/22/24 12:47
CR Shoulder, Trauma - Left Urgent
Comment:
Reason For Exam: trauma
05/22/24 14:22
Complete Blood Count/With Diff Urgent
Comprehensive Metabolic Panel Urgent
Vital Signs
Initial and Last Documented VS:
Initial Vital Signs
Temp Pulse Resp BP Pulse Ox
98.3 F 74 18 175/90 95
05/22/24 11:36 05/22/24 11:36 05/22/24 11:36 05/22/24 11:36 05/22/24 11:36
Last Documented Vital Signs
Temp Pulse Resp BP Pulse Ox
98.3 F 82 16 175/90 95
05/22/24 11:36 05/22/24 14:15 05/22/24 14:15 05/22/24 11:36 05/22/24 11:36
MDM/Problems Addressed
MDM/Problems Addressed:
CT of the head and cervical spine are clear. Given the patient's noticeable deformity to the left knee/distal quad suspicious for quad tendon rupture, she will be placed in a knee immobilizer and admitted to the medical service for further
placement considerations. She may require operative intervention however regardless she is not suitable for discharge to her current level of care particularly given the challenges of maintaining nonweightbearing status in a patient with dementia.
He will be admitted to the hospitalist service
*Critical Care Note
Total Time (30-74mins, 75-104mins- exclusive of procedures): Not Applicable
ED Attending Note
-
Portions of this chart may have been created with voice recognition software.� Occasional wrong word or��sound alike� substitutions may have occurred due to the inherent limitations of voice recognition software.
Discharge Plan
Departure
Patient Disposition: Admit
Date of Disposition: 05/22/24
Time of Disposition: 14:29
Admit to: Med/Surg
Presentation/result/management discussed w/ accepting MD/DO: Hospitalist
Discharge Problem:
Quadriceps tendon rupture, Fall, Laceration of scalp, Hematoma of scalp
Prescriptions:
No Action
tramadol 50 MG tablet
50 mg PO Q8HPRN PRN (Reason: moderate pain)
quetiapine 25 mg Tablet
12.5 mg PO DAILYPRN PRN (Reason: agitation)
acetaminophen 500 mg Tablet
1,000 mg PO DAILY
escitalopram oxalate 20 mg tablet
10 mg PO DAILY
multivitamin with folic acid [Therems Multivitamin] 400 mcg Tablet
1 tab PO DAILY
apixaban 2.5 mg Tablet
2.5 mg PO BID
quetiapine [Seroquel] 25 mg Tablet
25 mg PO BID
hydrocortisone [Preparation H Hydrocortisone] 1 % Cream
1 applic TOPICAL BIDPRN PRN (Reason: hemmorhoid)
aspirin 81 mg Tablet,Chewable
81 mg PO DAILY
Referrals:
Emelina Davis CRNP [Family Provider] -
Interventions
Interventions:
*General Assessment Last Done: 05/22/24 11:45
*Neglect/Abuse Screening Last Done: 05/22/24 11:36
ED-Musculoskeletal Assessment Last Done: 05/22/24 11:36
ED- Neurological Assessment Last Done: 05/22/24 11:36
ED-Skin Assessment Last Done: 05/22/24 11:36
Discharge Date and Time
Print Language: ITALIAN
[2024-05-22 14:37] LABS: % Basophils 0.4 % (0-2); % Eosinophils 1.9 % (0-6); % Immature Granulocytes 0.3 % (0-0.5); % Lymphocytes 15.4 % (20.5-51.1); % Monocytes 7.4 % (1.7-9.3); % Neutrophils 74.6 % (42.2-75.2); Absolute Eosinophils 0.1 10^3/uL (0-0.7); Absolute Lymphocytes 1.1 10^3/uL (1.2-3.4); Absolute Monocytes 0.5 10^3/uL (0.1-0.6); Absolute Neutrophils 5.2 10^3/uL (1.4-6.5); Hematocrit 38.9 % (37.0-47.0); Mean Corp Hgb Conc. 33.4 g/dL (33.0-37.0); Mean Corpuscular Volume 101.8 fL (81.0-99.0); Mean Platelet Volume 9.8 fL (7.4-10.4); Nucleated Red Blood Cells % 0 %; Platelet Count 197 10^3/uL (130-400); Red Blood Cell Count 3.82 10^6/uL (4.20-5.40); Red Cell Dist. Width 12.7 % (11.5-14.5); White Blood Cell Count 6.9 10^3/uL (4.8-10.8)
[2024-05-22 14:48] LABS: ALT (SGPT) 12 U/L (0-35); AST (SGOT) 26 U/L (14-36); Albumin 3.6 g/dl (3.5-5.0); Alkaline Phosphatase 99 U/L (38-126); Blood Urea Nitrogen 19 mg/dl (7-17); Calcium 9.3 mg/dl (8.4-10.2); Carbon Dioxide 31 mmol/L (22-30); Chloride 107 mmol/L (98-107); Estimated Creatinine Clearance 48 ml/min; Glucose 99 mg/dl (70-99); Potassium 3.9 mmol/L (3.5-5.1); Sodium 142 mmol/L (135-145); Total Bilirubin 0.4 mg/dl (0.2-1.3); Total Protein 6.4 g/dl (6.3-8.2); eGFR > 60.00
[2024-05-22 15:00] VITALS: BP 161/88
--- NOTE | 2024-05-22 15:01 | HPS.HSE ---
Addendum entered and electronically signed by Radha Dallas DO 05/22/24 17:21:
I have seen and examined the patient. Discussed the patient with Amairani and agree with her history and physical and assessment and plan of care as per below. Patient is a pleasant 84-year-old woman with past medical history significant for
dementia, atrial fibrillation, hypertension who presents to the emergency department from her memory facility at [facility] due to an unwitnessed fall today. She is hard of hearing and has cochlear implants. She had a large bloody laceration on her
left sided scalp with a large hematoma that was repaired with olive in emergency department. She also has pain and swelling to her left knee. Her hemoglobin is stable in the emergency department at 13.0. The patient has a notable deformity to
the left knee and distal quad that is concerning for a quad tendon rupture. She was placed in a knee immobilizer in the emergency department.
She is not actively bleeding.
X-rays are unremarkable for acute pathology
Vital signs reviewed and she is hemodynamically stable and stable from a respiratory standpoint
Physical exam
Cardiovascular is regular rate and rhythm no murmurs or gallops
Lungs are clear to auscultation bilaterally no wheezes rales rhonchi
Left knee is swollen and in the knee immobilizer she has good distal pulses
Left scalp has a large hematoma with olive in the temporal parietal region
Labs discussed and reviewed
# Unwitnessed fall, with subsequent traumatic injuries including a possible quad tendon rupture
- Orthopedic consultation is appreciated
-Continue left knee immobilizer
-Continue to monitor the left scalp for bleeding
-Wound care of the scalp
- Case management consultation
- Further disposition planning pending orthopedic recommendations
Original Note:
Family Physician
-
Family Physician: DWIGHT Walsh
Chief Complaint
-
fall
History of Present Illness
Patient is a 84-year-old female with past medical history significant for atrial fibrillation, hypertension and dementia who presented to [facility] ED for evaluation s/p fall at facility. Patient sustained an unwitnessed fall today at [facility]
care where she resides. Daughter at bedside to assist with HPI. She reports that patient wanders without walker r/t dementia and memory impairment. She had wandered into another resident room and had an unwitnessed fall. She was found with
laceration to left scalp and deformity to left lower extremity. Daughter reports a fall in April 2024 and patient had head strike with abrasion to right eyebrow, following that fall the family elected to discontinue Eliquis.
Medical History
Past Medical History
Past Medical History: Reports Other
Additional Past Medical History:
atrial fibrillation
hypertension
dementia
Past Surgical History: Reports Other
Additional Past Surgical History:
cardiac ablation
hysterectomy
bilateral rotator cuffs
B/L foot surgery
TAVR
Social History
Unable to obtain full social history at this time due to: Dementia
Tobacco: Non-smoker
Alcohol: None
Personal:
Living: Long-Term ([facility] dementia unit)
Family History
Family History: Not pertinent
Allergies / Home Medications
Allergies reflects when Allergies were last updated in [facility].
Home Medications with original date entered in [facility]
Allergy/Medication List:
Allergies
Allergy/AdvReac Type Severity Reaction Status Date / Time
codeine Allergy Unknown Verified 04/01/24 09:26
latex Allergy Hives Verified 04/01/24 09:26
Sulfa (Sulfonamide Allergy Unknown Verified 04/01/24 09:26
Antibiotics)
sulfamethoxazole Allergy Unknown Verified 04/01/24 09:26
trimethoprim Allergy Unknown Verified 04/01/24 09:26
Home Medications
tramadol 50 mg tablet 50 mg PO Q8HPRN PRN moderate pain 05/28/17
acetaminophen 500 mg tablet 1,000 mg PO DAILY Pain/fever 09/17/23
apixaban 2.5 mg tablet 2.5 mg PO BID Blood Clot Prevention/Tx 09/17/23
escitalopram oxalate 20 mg tablet 10 mg PO DAILY Depression 09/17/23
multivitamin with folic acid 400 mcg tablet ([facility] Multivitamin) 1 tab PO DAILY Supplement 09/17/23
quetiapine 25 mg tablet 12.5 mg PO DAILYPRN PRN agitation 09/17/23
aspirin 81 mg chewable tablet 81 mg PO DAILY 05/22/24
hydrocortisone 1 % topical cream (Preparation H Hydrocortisone) 1 applic topical BIDPRN PRN hemmorhoid 05/22/24
quetiapine 25 mg tablet (Seroquel) 25 mg PO BID 05/22/24
Review of Systems
-
Unable to obtain full review of systems at this time due to: Dementia
History Source: Family
Physical Exam
Vital Signs
Vital Signs
Temp Pulse Resp BP Pulse Ox
98.3 F 82 16 175/90 95
05/22/24 11:36 05/22/24 14:15 05/22/24 14:15 05/22/24 11:36 05/22/24 11:36
Physical Exam
General: Well Developed, Well Nourished, No Apparent Distress, Comfortable and Conversant
HEENT: NormoCephalic, Moist mucous membranes, Atraumatic, Nose Appears Normal, Ears Appear Normal and Deaf
Respiratory: Clear
Cardiac: S1/S2 and Irregular Rhythm
Breast: Deferred by me
GI: Soft, Non Tender, Non Distended and Normal Bowel Sounds; No Organomegaly
Rectal: Deferred by Provider
Genito-urinary: Deferred by me
Musculoskeletal: Edema, Left Lower Extremity (left lower extremity hematoma, knee embolizer in place ) and Other (Deformity to the left distal quad with a deep sulcus and a palpable femur/patella suggesting distal quad tendon rupture)
Skin: IV/Catheter Site
Neuro: Awake, Alert and Nonfocal/grossly intact
Psych: Calm and Confused
Laboratory Results
-
05/22/24 14:22
05/22/24 14:22
Laboratory Results
Total Bilirubin 0.4 mg/dl (0.2-1.3) 05/22/24 14:22
AST 26 U/L (14-36) 05/22/24 14:22
ALT 12 U/L (0-35) 05/22/24 14:22
Alkaline Phosphatase 99 U/L (38-126) 05/22/24 14:22
Data Reviewed
-
Lab Data: Labs Reviewed by me
Impression/Plan
-
IMPRESSION/PLAN:
#s/p fall
C-spine CT: There is multilevel degenerative disc disease but no evidence of fracture
Head CT: The study is limited by the streak artifacts but is unchanged.
There are moderate changes of cortical atrophy and chronic ischemic disease.
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
Femur X-ray: There are degenerative changes suggesting osteoarthritis but no evidence of an acute fracture
Hip X-ray: There are degenerative changes suggesting osteoarthritis but no evidence of an acute fracture
Shoulder x-ray: There are degenerative changes but no evidence of fracture
- Admit to med/surg
- Consult Ortho
- Consult Case management for d/c planning and placement
- Wound care for scalp laceration
#dementia
- continue escitalopram and quetiapine
#atrial fibrillation
#hypertension
Code status: DNR
DVT prophylaxis: SCDs (consider Lovenox tomorrow if approved by Ortho)
--- NOTE | 2024-05-22 15:48 | CM ---
CM spoke with [facility] care county administrator [phone]
Pt is alert to self only
She is deaf with cochlear implant
Pt is independent with ambulation without device
She is one person assist for all personal care
At times can be coaxed to complete a task
Per county administrator, will start working with [facility] and family in LT higher level of care as pt has not been doing well at PCU level
Will need therapy once appropriate
Anticiping need for SNF on dc, referral sent to [facility]
Discharge Disposition- anticipate [facility]
[2024-05-22 16:00] VITALS: BP 141/97
--- NOTE | 2024-05-22 17:14 | CON.ORTHO ---
Addendum entered and electronically signed by Jamil Cruz MD 05/22/24 17:33:
erroneously typed patella marshall, should read patella baja
Original Note:
Consultation - Orthopedics
History
HPI: 84-year-old female history of dementia presents emergency department status post unwitnessed fall with complaints of left knee pain as well as obvious laceration to her head. She was ultimately mated to medical service orthopedics is consulted
for evaluation of left knee pain and suspicion of potential quadriceps tendon rupture. This evening patient's daughter is bedside. Patient is hard of hearing but she was able to comply with commands. Per daughter, there was an unwitnessed fall.
She reports that her mother is quite ambulatory this was to be using walker but often times forgets. She reports that she is really not that interactive or communicative with other guests at her memory care unit.
Allergies / Home Medications
Past medical history: A-fib previously on Eliquis, hypertension, dementia
Past surgical history: Cardiac ablation procedure, hysterectomy, left rotator cuff surgery, bilateral foot surgery
Family history: Not pertinent
Social history: Memory care at [facility], non-smoker
Allergy/AdvReac Type Severity Reaction Status Date / Time
codeine Allergy Unknown Verified 04/01/24 09:26
latex Allergy Hives Verified 04/01/24 09:26
Sulfa (Sulfonamide Allergy Unknown Verified 04/01/24 09:26
Antibiotics)
sulfamethoxazole Allergy Unknown Verified 04/01/24 09:26
trimethoprim Allergy Unknown Verified 04/01/24 09:26
�Medication �Instructions �Recorded
tramadol 50 mg tablet 50 mg PO Q8HPRN PRN moderate pain 05/28/17
acetaminophen 500 mg tablet 1,000 mg PO DAILY Pain/fever 09/17/23
apixaban 2.5 mg tablet 2.5 mg PO BID Blood Clot 09/17/23
Prevention/Tx
escitalopram oxalate 20 mg tablet 10 mg PO DAILY Depression 09/17/23
multivitamin with folic acid 400 1 tab PO DAILY Supplement 09/17/23
mcg tablet ([facility] Multivitamin)
quetiapine 25 mg tablet 12.5 mg PO DAILYPRN PRN agitation 09/17/23
aspirin 81 mg chewable tablet 81 mg PO DAILY 05/22/24
hydrocortisone 1 % topical cream 1 applic topical BIDPRN PRN 05/22/24
(Preparation H Hydrocortisone) hemmorhoid
quetiapine 25 mg tablet (Seroquel) 25 mg PO BID 05/22/24
Vital Signs / Lab Results
Temp Pulse Resp BP Pulse Ox
98.3 F 82 15 141/97 95
05/22/24 11:36 05/22/24 16:00 05/22/24 16:00 05/22/24 16:00 05/22/24 11:36
05/22/24 14:22
05/22/24 14:22
10 point review systems reviewed and negative unless otherwise stated
General: Somewhat confused but able to interact simple commands
Musculoskeletal left lower extremity
There is hematoma palpable over the anterior medial proximal tibia
There is no palpable knee effusion
There is somewhat of the deformity noted over the distal quadriceps insertion
Patient is able to strongly straight leg raise however and she is able to actively extend her knee against some resistance
Leg lengths are approximately equal
No pain with passive internal/external rotation of hip
Unable to comply with detailed motor or sensory examination
Diagnostic studies
X-rays left femur hip and shoulder reviewed. There is no obvious evidence of fracture left hip. No obvious patella marshall on lateral view knee. Evidence of rotator cuff arthropathy left shoulder
Assessment / Plan
84-year-old female status post fall left knee pain. There is obvious hematoma over anterolateral knee/proximal tibia. There is no obvious fracture noted on plain film radiographs. Patient is able to strongly straight leg raise and extend knee
against resistance. Given this, low index of suspicion of full-thickness quadriceps tendon rupture in addition to no evidence of patella marshall on plain film radiographs. At this point would recommend temporary mobilization knee immobilizer.
Patient can bear weight to her tolerance in the knee immobilizer. I frankly had a discussion with the patient's daughter and even if she did have a quadriceps tendon rupture, this would likely be treated conservatively given her advanced dementia
and inability to comply with postoperative restrictions after surgery as well as her increased fall risk. More than happy to see patient back in office in 2 to 3 weeks for repeat evaluation. Please reach out with any questions or concerns
Weightbearing as tolerated left lower extremity in knee immobilizer
PT OT
Pain control
Medical management per primary team
DVT prophylaxis per primary team
Follow-up outpatient 2 to 3 weeks for repeat evaluation. No plans for surgical intervention acutely.
[2024-05-22] MEDS: SEROQUEL 12.5 MG PO (17:25)
[2024-05-22 18:08] VITALS: BP 191/95
[2024-05-22 18:31] VITALS: BP 184/84
--- NOTE | 2024-05-22 18:46 | PTCARENOTE ---
patient arrived to unit, Oriented x1. Patient BP elevated, 184/84 HR 89, MD Dallas notified. awaiting new orders. will continue to monitor.
[2024-05-22] MEDS: ULTRAM 50 MG PO (19:12)
[2024-05-22] MEDS: SEROQUEL 25 MG PO (19:12)
[2024-05-22 19:16] VITALS: BMI 22.7
[2024-05-22 23:40] VITALS: BP 159/83
[2024-05-23 07:00] VITALS: BP 170/81
[2024-05-23 08:14] LABS: Hematocrit 37.6 % (37.0-47.0); Hemoglobin 12.8 g/dL (12.0-16.0); Mean Corpuscular Hgb 34.5 pg (27.0-31.0); Mean Corpuscular Volume 101.3 fL (81.0-99.0); Platelet Count 188 10^3/uL (130-400); Red Blood Cell Count 3.71 10^6/uL (4.20-5.40); Red Cell Dist. Width 12.8 % (11.5-14.5)
[2024-05-23] MEDS: THERAGRAN 1 TABLET PO (08:19)
[2024-05-23] MEDS: SEROQUEL 25 MG PO (08:19)
[2024-05-23] MEDS: LOW STRENGTH ASPIRIN 81 MG PO (08:19)
[2024-05-23] MEDS: LEXAPRO 10 MG PO (08:19)
--- NOTE | 2024-05-23 08:44 | W.PN.HOSP.TC ---
Today's Communication/Plan
-
Pain control. Orhot eval. PT OT eval.
Assessment / Plan
Assessment / Plan
Physical Exam
General: Well Developed, Well Nourished, No Apparent Distress, Comfortable and Conversant
HEENT: NormoCephalic, Moist mucous membranes, Atraumatic, Nose Appears Normal, Ears Appear Normal and Deaf
Respiratory: Clear
Cardiac: S1/S2 and Irregular Rhythm
Breast: Deferred by me
GI: Soft, Non Tender, Non Distended and Normal Bowel Sounds; No Organomegaly
Rectal: Deferred by Provider
Genito-urinary: Deferred by me
Musculoskeletal: Edema, Left Lower Extremity (left lower extremity hematoma, knee immobilizer in place)
Skin: IV/Catheter Site
Neuro: Awake, Alert and Nonfocal/grossly intact
Psych: Calm and Confused
A/P:
#s/p fall /Right knee hematoma
C-spine CT: There is multilevel degenerative disc disease but no evidence of fracture
Head CT: The study is limited by the streak artifacts but is unchanged.
There are moderate changes of cortical atrophy and chronic ischemic disease.
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
Femur X-ray: There are degenerative changes suggesting osteoarthritis but no evidence of an acute fracture
Hip X-ray: There are degenerative changes suggesting osteoarthritis but no evidence of an acute fracture
Shoulder x-ray: There are degenerative changes but no evidence of fracture
- Admit to med/surg
- Consult Ortho - no surgical intervention-discussed with ortho today
- Consult Case management for d/c planning and placement. PT OT eval
- Wound care for scalp laceration
#dementia
- continue escitalopram and quetiapine
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
#hypertension
Code status: DNR
DVT prophylaxis: SCDs
Anticipated Discharge: 24 - 48 hours
Subjective/Interval History
-
Date of Service: May 23, 2024
Not much info from patient but daughter at bedside. c/o pain r knee, no cp/sob
Objective Data
-
Labs:
Laboratory Results
05/23/24
06:59
WBC 9.0
Hgb 12.8
Hct 37.6
Plt Count 188
Sodium Pending
Potassium Pending
Chloride Pending
Carbon Dioxide Pending
BUN Pending
Creatinine Pending
Glucose Pending
Calcium Pending
Vital Signs:
Vital Signs
Temp Pulse Resp BP Pulse Ox
97.6 F 81 16 159/83 95
05/22/24 23:40 05/22/24 23:40 05/22/24 23:40 05/22/24 23:40 05/22/24 23:40
I&O
05/22/24 05/23/24 05/24/24
06:59 06:59 06:59
Intake Total 240 / 240
Balance 240 / 240
[2024-05-23 08:51] LABS: Blood Urea Nitrogen 16 mg/dl (7-17); Calcium 8.8 mg/dl (8.4-10.2); Carbon Dioxide 30 mmol/L (22-30); Chloride 106 mmol/L (98-107); Estimated Creatinine Clearance 56 ml/min; Glucose 81 mg/dl (70-99); Potassium 3.7 mmol/L (3.5-5.1); Sodium 141 mmol/L (135-145); eGFR > 60.00
--- NOTE | 2024-05-23 11:38 | CM ---
CM reviewed chart, patient seen bedside with daughter. CM discussed patient currently observation status, if PT/OT recommending SNF, will need to private pay as patient does not have a three night inpatient stay. CM reached out to [employer]
account retention representative, patient does qualify for [facility] waiver program. [facility] form reviewed with daughter, refused to sign, placed in chart. Daughter confirms patient is from [place], unsure if she will be able to return. CM will continue to follow for all
discharge planning needs.
Plan; will watch for PT/OT evals, if SNF recommended, patient does qualify for [facility] waiver program.
--- NOTE | 2024-05-23 12:13 | WOUNDNOTE ---
SCALP WITH FLASH LIGHT
--- NOTE | 2024-05-23 12:15 | WOUNDNOTE ---
WON RN NOTE: Patient admitted s/p fall with quadriceps tendon rupture and laceration to scalp. Patient lives at [facility] and recently fell there while walking with walker. L scalp with closed laceration, olive visible with intact scab,
stopped draining. Patient turns self easily, sacrum and heels intact. Daughter at bedside, discussed recommendation to leave open to air, daughter in agreement. Updated nurse Anusha and will sign off.
[2024-05-23 15:00] VITALS: BP 166/70
[2024-05-23] MEDS: ULTRAM 50 MG PO (15:46)
[2024-05-23] MEDS: SEROQUEL 50 MG PO (21:31)
--- NOTE | 2024-05-23 23:33 | PTCARENOTE ---
Pt refused temp to be taken on 2300 VS. Pt started to become combative but easily redirected. No c/o of chills. Pt resting in bed.
[2024-05-23 23:44] VITALS: BP 110/67
[2024-05-24 07:00] VITALS: BP 153/105
[2024-05-24] MEDS: THERAGRAN 1 TABLET PO (07:09)
[2024-05-24] MEDS: LOW STRENGTH ASPIRIN 81 MG PO (07:09)
[2024-05-24] MEDS: SEROQUEL 25 MG PO (07:09)
[2024-05-24] MEDS: LEXAPRO 10 MG PO (07:09)
[2024-05-24 07:53] LABS: Mean Corp Hgb Conc. 33.3 g/dL (33.0-37.0); Mean Corpuscular Hgb 33.9 pg (27.0-31.0); Mean Corpuscular Volume 101.6 fL (81.0-99.0); Mean Platelet Volume 9.9 fL (7.4-10.4); Platelet Count 186 10^3/uL (130-400); Red Blood Cell Count 3.84 10^6/uL (4.20-5.40); Red Cell Dist. Width 12.6 % (11.5-14.5); White Blood Cell Count 10.1 10^3/uL (4.8-10.8)
[2024-05-24 08:19] LABS: Blood Urea Nitrogen 21 mg/dl (7-17); Calcium 8.8 mg/dl (8.4-10.2); Carbon Dioxide 28 mmol/L (22-30); Chloride 106 mmol/L (98-107); Estimated Creatinine Clearance 48 ml/min; Glucose 95 mg/dl (70-99); Potassium 3.7 mmol/L (3.5-5.1); Sodium 140 mmol/L (135-145); eGFR > 60.00
--- NOTE | 2024-05-24 08:44 | W.PN.HOSP.TC ---
Today's Communication/Plan
-
Pain control. PT OT
Assessment / Plan
Assessment / Plan
Physical exam:
General: Chronically ill
HEENT: Normocephalic, traumatic and Moist Mucous Membranes. Head laceration with olive in left scalp area
Respiratory: Clear to Auscultation; Negative Wheezes, Rales or Rhonchi
Cardiac: Regular Rhythm and S1/S2
GI: Soft, Nontender and Nondistended
Musculoskeletal: Immobilized in left lower extremity. Hematoma palpable. Decreased range of motion. Mild tenderness. No Clubbing, No Cyanosis
Neuro: Awake, Alert and disoriented, no neurological deficit
Psych: Lack of judgment and insight
A/P:
Fall status post left knee hematoma:
Orthopedic consult appreciated
No concerns for quad tendon rupture
Ortho recommend temporary knee immobilizer and can bear weight to tolerance
Pain control
PT OT eval
Discussed with daughter at bedside yesterday
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
Constipation:
Bowel regimen
Paroxysmal atrial fibrillation:
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
Not on rate control agents either and rate controlled
Dementia:
Monitor mental status
Continue Seroquel 25 mg in the morning and 50 mg in the evening
Depression:
Continue escitalopram
DVT prophylaxis:
SCDs
CODE STATUS:
DNR
Anticipated Discharge: 24 - 48 hours
Subjective/Interval History
-
Date of Service: May 24, 2024
No new complaints. RN reports constipation. Afebrile
Objective Data
-
Labs:
Laboratory Results
05/24/24
07:19
WBC 10.1
Hgb 13.0
Hct 39.0
Plt Count 186
Sodium 140
Potassium 3.7
Chloride 106
Carbon Dioxide 28
BUN 21 H
Creatinine 0.7
Glucose 95
Calcium 8.8
Vital Signs:
Vital Signs
Temp Pulse Resp BP Pulse Ox
97.6 F 83 18 153/105 97
05/24/24 07:00 05/24/24 07:00 05/24/24 07:00 05/24/24 07:00 05/24/24 07:00
I&O
05/23/24 05/24/24 05/25/24
06:59 06:59 06:59
Intake Total 240 / 240 960 / 960
Output Total 700 / 700
Balance 240 / 240 260 / 260
--- NOTE | 2024-05-24 10:44 | CM ---
CM reviewed chart, patients daughter, Nia, seen in [facility]. CM discussed patient has been switched to inpatient. Per PT eva- recommending SNF- referral sent to [facility] for STR as patient is resident of [facility]. [facility] can accept patient for
Wednesday. CM will continue to follow for all discharge planning needs.
Plan; [facility] Wednesday
[2024-05-24] MEDS: MIRALAX 17 GRAMS PO (11:10)
[2024-05-24] MEDS: COLACE 100 MG PO ×2 (11:10→20:43)
[2024-05-24] MEDS: TYLENOL 650 MG PO (13:18)
[2024-05-24 15:00] VITALS: BP 146/65
[2024-05-24] MEDS: SEROQUEL 50 MG PO (20:43)
--- NOTE | 2024-05-24 23:48 | PTCARENOTE ---
Pt refused VS for 2299. Pt began to get combative and uncooperative. Pt redirected and now resting in bed.
[2024-05-25 07:00] VITALS: BP 190/102
[2024-05-25] MEDS: SEROQUEL 25 MG PO (08:01)
[2024-05-25] MEDS: THERAGRAN 1 TABLET PO (08:01)
[2024-05-25] MEDS: LEXAPRO 10 MG PO (08:01)
[2024-05-25] MEDS: LOW STRENGTH ASPIRIN 81 MG PO (08:02)
[2024-05-25] MEDS: MIRALAX 17 GRAMS PO (08:02)
[2024-05-25] MEDS: COLACE 100 MG PO ×2 (08:02→20:23)
--- NOTE | 2024-05-25 08:52 | W.PN.HOSP.TC ---
Today's Communication/Plan
-
Discharge planning
Assessment / Plan
Assessment / Plan
Physical exam:
General: Chronically ill
HEENT: Normocephalic, traumatic and Moist Mucous Membranes. Head laceration with olive in left scalp area
Respiratory: Clear to Auscultation; Negative Wheezes, Rales or Rhonchi
Cardiac: Regular Rhythm and S1/S2
GI: Soft, Nontender and Nondistended
Musculoskeletal: Immobilized in left lower extremity. Hematoma palpable. Decreased range of motion. Mild tenderness. No Clubbing, No Cyanosis
Neuro: Awake, Alert and disoriented, no neurological deficit
Psych: Lack of judgment and insight
A/P:
Fall status post left knee hematoma:
Orthopedic consult appreciated
No concerns for quad tendon rupture
Ortho recommend temporary knee immobilizer and can bear weight to tolerance
Pain control
PT OT eval
Discussed with daughter at bedside prior
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
Constipation:
Bowel regimen
Paroxysmal atrial fibrillation:
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
Not on rate control agents either and rate controlled
Dementia:
Monitor mental status
Continue Seroquel 25 mg in the morning and 50 mg in the evening
Depression:
Continue escitalopram
DVT prophylaxis:
SCDs
CODE STATUS:
DNR
Anticipated Discharge: 24 - 48 hours
Subjective/Interval History
-
Date of Service: May 25, 2024
Patient denies chest pain or shortness of breath.
Objective Data
-
Vital Signs:
Vital Signs
Temp Pulse Resp BP Pulse Ox
97.7 F 83 17 146/65 95
05/24/24 15:00 05/24/24 15:00 05/24/24 15:00 05/24/24 15:00 05/24/24 15:00
I&O
05/24/24 05/25/24 05/26/24
06:59 06:59 06:59
Intake Total 960 / 960
Output Total 700 / 700
Balance 260 / 260
[2024-05-25 10:36] VITALS: PULSE 92; O2SAT 96
--- NOTE | 2024-05-25 12:05 | CM ---
CM reviewed chart, patient seen bedside with daughter, discussed plan for [facility] tomorrow. CM confirmed with [facility] admissions bed for tomorrow. IMM reviewed with daughter, signed, placed in chart. CM will continue to follow for all
discharge planning needs.
Plan; [facility] tomorrow, likely ambulance transport.
[2024-05-25 15:00] VITALS: BP 183/105
--- NOTE | 2024-05-25 15:22 | PN.CDI ---
CDI
- -
CDI:
Physician Documentation Request
Admit Date: 05/23/24 11:01
Dear Doctor Twin,
Please review the following and provide your response in the progress notes.
Clinical Indicators:
Pt admitted with fall left knee hematoma /HX of dementia
Progress notes 05/23-05/25, ' Dementia:Monitor mental status Continue Seroquel 25 mg in the morning and 50 mg in the evening...'
Patient care note 05/24 @ 6428,' Pt refused VS for 0. Pt began to get combative and uncooperative. ...'
Please provide a diagnosis for the above findings:
Dementia with Behavioral disturbances
Baseline dementia only
Other ( please specify)
Use of terms such as suspected, likely, concern for, or probable (associated with a specific diagnosis that is being evaluated, monitored, or treated as if it exists) are acceptable and can be coded in the inpatient setting, when documented at the
time of discharge.
Thank you,
Michelle Alcantara RN
CDI Specialist
[facility]
Please use your independent medical judgment in providing your response.
[2024-05-25] MEDS: SEROQUEL 50 MG PO (20:22)
[2024-05-25] MEDS: TYLENOL 650 MG PO (20:23)
[2024-05-25 23:23] VITALS: BP 140/63
[2024-05-26 07:00] VITALS: BP 169/87
[2024-05-26] MEDS: LEXAPRO 10 MG PO (08:20)
[2024-05-26] MEDS: THERAGRAN 1 TABLET PO (08:20)
[2024-05-26] MEDS: COLACE 100 MG PO (08:20)
[2024-05-26] MEDS: SEROQUEL 25 MG PO (08:20)
[2024-05-26] MEDS: MIRALAX 17 GRAMS PO (08:20)
[2024-05-26] MEDS: LOW STRENGTH ASPIRIN 81 MG PO (08:20)
--- NOTE | 2024-05-26 08:59 | W.PN.HOSP.TC ---
Addendum entered and electronically signed by Jorge Murcia MD 05/26/24 14:45:
Dementia with Behavioral disturbances
Original Note:
Today's Communication/Plan
-
Discharge planning
Assessment / Plan
Assessment / Plan
Physical exam:
General: Chronically ill
HEENT: Normocephalic, traumatic and Moist Mucous Membranes. Head laceration with olive in left scalp area
Respiratory: Clear to Auscultation; Negative Wheezes, Rales or Rhonchi
Cardiac: Regular Rhythm and S1/S2
GI: Soft, Nontender and Nondistended
Musculoskeletal: Immobilized in left lower extremity. Hematoma palpable. Decreased range of motion. Mild tenderness. No Clubbing, No Cyanosis
Neuro: Awake, Alert and disoriented, no neurological deficit
Psych: Lack of judgment and insight
A/P:
Fall status post left knee hematoma:
Orthopedic consult appreciated
No concerns for quad tendon rupture
Ortho recommend temporary knee immobilizer and can bear weight to tolerance
Pain control
PT OT eval
Discussed with daughter at bedside prior
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
Plan for discharge today
Constipation:
Bowel regimen
Paroxysmal atrial fibrillation:
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
Not on rate control agents either and rate controlled
Dementia:
Monitor mental status
Continue Seroquel 25 mg in the morning and 50 mg in the evening
Depression:
Continue escitalopram
DVT prophylaxis:
SCDs
CODE STATUS:
DNR
Anticipated Discharge: Today
Subjective/Interval History
-
Date of Service: May 26, 2024
No new complaints.
Objective Data
-
Vital Signs:
Vital Signs
Temp Pulse Resp BP Pulse Ox
98.2 F 76 18 140/63 94
05/25/24 23:23 05/25/24 23:23 05/25/24 23:23 05/25/24 23:23 05/25/24 23:23
I&O
05/25/24 05/26/24 05/27/24
06:59 06:59 06:59
Intake Total 120 / 120
Balance 120 / 120
--- NOTE | 2024-05-26 11:30 | CM ---
Addendum entered by Bonnie Caal 05/26/24 12:15:
Patient scheduled for 4:00 p.m. ambulance transport.
Original Note:
CM reviewed chart, patient for discharge today to [facility]. Patient will require ambulance transport. CM will continue to follow for all discharge planning needs.
Plan; [facility], ambulance transport
[facility]
Report: [phone]
--- NOTE | 2024-05-26 13:15 | W.DCSUMMARY ---
Addendum entered and electronically signed by Jorge Murcia MD 05/27/24 13:42:
PCP reached out to me since Eliquis was still on her list. Eliquis was definitely discontinued and we clarified.
Original Note:
Discharge Summary
Discharge Data
Date of Admission: 05/23/24
Date of Discharge: 05/26/24
-
Pending Results: No
Hospital Course
Patient 84 years old female history of dementia, hard of hearing, A-fib, hypertension, came into the hospital after a fall. Patient had a laceration on her head and also sustained a fall on her left knee and there was some concerns for quadriceps
rupture. She had olive in her scalp and follow-up ED recommendations. Orthopedic consulted. Ortho evaluated the patient and felt there was no concerns for quadriceps tendon rupture. She did have a hematoma and recommended local measures and
temporary immobilization with weightbearing status. Anticoagulation had been discontinued prior to admission given her recurrent falls and risk of bleeding with seems to be aligned with her history. Patient otherwise has been doing well throughout
this hospital stay. She will be discharged in stable condition to rehab today.
Discharge duration: 35 minutes
Discharge Plan
-
Patient Disposition: Correction/SNF
Discharge Diagnosis/Procedures: Mechanical fall. Left knee hematoma. Paroxysmal atrial fibrillation. Dementia.
Diet: Low Cholesterol
Activity: As tolerated
Blood Work: Please PCP to order CBC, BMP within 1 week
Referrals:
Jamil Cruz MD [Active] - in two to four weeks
Emelina Davis CRNP [Family Provider] - in less than 1 week
Prescriptions:
New
quetiapine 25 mg Tablet
50 mg PO HS 30 Days Qty: 0 0RF
quetiapine 25 mg Tablet
25 mg PO DAILY 30 Days Qty: 0 0RF
acetaminophen 325 mg Tablet
650 mg PO Q4HPRN PRN (Reason: mild pain/ARIAS/temp> 100.4F) Qty: 0 0RF
polyethylene glycol 3350 17 gram Powder In Packet
17 g PO DAILY 14 Days Qty: 0 0RF
metoprolol tartrate 25 mg tablet
25 mg PO BID Qty: 60 0RF
Continued
quetiapine 25 mg Tablet
12.5 mg PO DAILYPRN PRN (Reason: agitation)
escitalopram oxalate 20 mg tablet
10 mg PO DAILY
multivitamin with folic acid [Therems Multivitamin] 400 mcg Tablet
1 tab PO DAILY
apixaban 2.5 mg Tablet
2.5 mg PO BID
hydrocortisone [Preparation H Hydrocortisone] 1 % Cream
1 applic TOPICAL BIDPRN PRN (Reason: hemmorhoid)
aspirin 81 mg Tablet,Chewable
81 mg PO DAILY
tramadol 50 MG tablet
50 mg PO Q8HPRN PRN (Reason: moderate pain) Qty: 4 0RF
Discontinued
acetaminophen 500 mg Tablet
1,000 mg PO DAILY
quetiapine [Seroquel] 25 mg Tablet
25 mg PO BID
Discharge Orders:
Discharge Patient (As Directed); Ordered 05/26/24
Ordered By: Jorge Murcia
Discharge Date and Time
Discharge Date/Time: 05/26/24 17:27
Print Language: ITALIAN
[2024-05-26 14:02] VITALS: BP 155/62
[2024-05-26] MEDS: LOPRESSOR 25 MG PO (14:24)
[2024-05-26 15:00] VITALS: BP 154/69
== END 2024-05-26 17:27 | DRG 605 ==
LOC: 4 WEST ACU 11:01
PROVIDERS: Nurse Practitioner Family; Physician Assistant; ADMITTING PHYSICIAN Internal Medicine; ATTENDING PHYSICIAN Hospitalist; CONSULT PHYSICIAN Orthopaedic Surgery; EMERGENCY PHYSICIAN Emergency Medicine; FAMILY PHYSICIAN Nurse Practitioner Gerontology
DX: S80.02XA Contusion of left knee, initial encounter (principal); F03.918 Unspecified dementia, unspecified severity, with other behavioral disturbance; F03.93 Unspecified dementia, unspecified severity, with mood disturbance; S01.01XA Laceration without foreign body of scalp, initial encounter; I48.0 Paroxysmal atrial fibrillation; I10 Essential (primary) hypertension; H91.90 Unspecified hearing loss, unspecified ear; G93.89 Other specified disorders of brain; K59.00 Constipation, unspecified; G31.9 Degenerative disease of nervous system, unspecified; F32.A Depression, unspecified; W18.30XA Fall on same level, unspecified, initial encounter; Y93.01 Activity, walking, marching and hiking; Y92.129 Unspecified place in nursing home as the place of occurrence of the external cause; Z66 Do not resuscitate; Z79.82 Long term (current) use of aspirin; Z79.01 Long term (current) use of anticoagulants; Z90.710 Acquired absence of both cervix and uterus; Z88.5 Allergy status to narcotic agent; Z88.2 Allergy status to sulfonamides; Z88.1 Allergy status to other antibiotic agents; Z91.040 Latex allergy status
CPT/HCPCS: 29505; 70450; 72125; 73030; 73502; 73552; 80048; 80053; 85025; 85027; 87070; 97163; 97167; 97530; 99285

== ENCOUNTER → 2024-05-29 12:28 | Outpatient (REF) | payer OTHER, MEDICARE, BC, SELFPAY ==
[2024-05-29 13:10] LABS: % Basophils 0.6 % (0-2); % Eosinophils 0.7 % (0-6); % Immature Granulocytes 0.3 % (0-0.5); % Lymphocytes 10.1 % (20.5-51.1); % Monocytes 11.3 % (1.7-9.3); Absolute Eosinophils 0.1 10^3/uL (0-0.7); Absolute Lymphocytes 0.7 10^3/uL (1.2-3.4); Absolute Monocytes 0.8 10^3/uL (0.1-0.6); Absolute Neutrophils 5.5 10^3/uL (1.4-6.5); Hematocrit 36.6 % (37.0-47.0); Hemoglobin 12.1 g/dL (12.0-16.0); Mean Corp Hgb Conc. 33.1 g/dL (33.0-37.0); Mean Corpuscular Volume 102.8 fL (81.0-99.0); Mean Platelet Volume 10.2 fL (7.4-10.4); Nucleated Red Blood Cells % 0 %; Platelet Count 178 10^3/uL (130-400); Red Blood Cell Count 3.56 10^6/uL (4.20-5.40); White Blood Cell Count 7.1 10^3/uL (4.8-10.8)
[2024-05-29 14:55] LABS: Blood Urea Nitrogen 39 mg/dl (7-17); Calcium 8.4 mg/dl (8.4-10.2); Carbon Dioxide 26 mmol/L (22-30); Chloride 106 mmol/L (98-107); Glucose 97 mg/dl (70-99); Potassium 3.6 mmol/L (3.5-5.1); Sodium 144 mmol/L (135-145); eGFR > 60.00
== END ==
LOC: OLABP 12:28
PROVIDERS: ATTENDING PHYSICIAN Family Medicine
DX: N17.9 Acute kidney failure, unspecified (principal); F02.C2 Dementia in other diseases classified elsewhere, severe, with psychotic disturbance
CPT/HCPCS: 36415; 80048; 85025

== ENCOUNTER → 2024-06-02 11:10 | Outpatient (REF) | payer OTHER, MEDICARE, BC, SELFPAY ==
[2024-06-02 11:54] LABS: % Basophils 0.5 % (0-2); % Eosinophils 1.5 % (0-6); % Immature Granulocytes 0.4 % (0-0.5); % Lymphocytes 12.2 % (20.5-51.1); % Neutrophils 77.4 % (42.2-75.2); Absolute Basophils 0.1 10^3/uL (0-0.2); Absolute Eosinophils 0.2 10^3/uL (0-0.7); Absolute Lymphocytes 1.4 10^3/uL (1.2-3.4); Absolute Monocytes 0.9 10^3/uL (0.1-0.6); Absolute Neutrophils 8.6 10^3/uL (1.4-6.5); Hemoglobin 12.6 g/dL (12.0-16.0); Mean Corp Hgb Conc. 33.2 g/dL (33.0-37.0); Mean Corpuscular Hgb 34.1 pg (27.0-31.0); Mean Corpuscular Volume 102.7 fL (81.0-99.0); Mean Platelet Volume 10.2 fL (7.4-10.4); Nucleated Red Blood Cells % 0 %; Platelet Count 209 10^3/uL (130-400); Red Cell Dist. Width 12.6 % (11.5-14.5); White Blood Cell Count 11.1 10^3/uL (4.8-10.8)
[2024-06-02 13:43] LABS: Blood Urea Nitrogen 46 mg/dl (7-17); Calcium 8.8 mg/dl (8.4-10.2); Carbon Dioxide 22 mmol/L (22-30); Chloride 111 mmol/L (98-107); Glucose 78 mg/dl (70-99); Potassium 4.1 mmol/L (3.5-5.1); Sodium 145 mmol/L (135-145); eGFR > 60.00
== END ==
LOC: OLABN 11:10
PROVIDERS: ATTENDING PHYSICIAN Family Medicine
DX: N17.9 Acute kidney failure, unspecified (principal); F02.C2 Dementia in other diseases classified elsewhere, severe, with psychotic disturbance
CPT/HCPCS: 36415; 80048; 85025

== ENCOUNTER → 2024-06-05 11:30 | Outpatient (REF) | payer OTHER, MEDICARE, BC, SELFPAY ==
[2024-06-05 12:15] LABS: % Basophils 0.5 % (0-2); % Eosinophils 3.1 % (0-6); % Immature Granulocytes 0.5 % (0-0.5); % Lymphocytes 21.5 % (20.5-51.1); % Monocytes 7.2 % (1.7-9.3); % Neutrophils 67.2 % (42.2-75.2); Absolute Basophils 0.1 10^3/uL (0-0.2); Absolute Eosinophils 0.3 10^3/uL (0-0.7); Absolute Immature Granulocytes 0.1 10^3/uL (0-0.05); Absolute Lymphocytes 2.2 10^3/uL (1.2-3.4); Absolute Monocytes 0.7 10^3/uL (0.1-0.6); Absolute Neutrophils 6.7 10^3/uL (1.4-6.5); Hematocrit 37.2 % (37.0-47.0); Hemoglobin 12.2 g/dL (12.0-16.0); Mean Corp Hgb Conc. 32.8 g/dL (33.0-37.0); Mean Corpuscular Hgb 34.4 pg (27.0-31.0); Mean Corpuscular Volume 104.8 fL (81.0-99.0); Nucleated Red Blood Cells % 0 %; Platelet Count 246 10^3/uL (130-400); Red Blood Cell Count 3.55 10^6/uL (4.20-5.40); Red Cell Dist. Width 12.8 % (11.5-14.5)
== END ==
LOC: OLABP 11:30
PROVIDERS: ATTENDING PHYSICIAN Family Medicine
DX: N17.9 Acute kidney failure, unspecified (principal); F02.C2 Dementia in other diseases classified elsewhere, severe, with psychotic disturbance
CPT/HCPCS: 36415; 85025

== ENCOUNTER → 2024-06-13 11:59 | Outpatient (REF) | payer OTHER, MEDICARE, BC, SELFPAY ==
[2024-06-13 13:21] LABS: Blood Urea Nitrogen 30 mg/dl (7-17); Calcium 9.2 mg/dl (8.4-10.2); Carbon Dioxide 30 mmol/L (22-30); Chloride 105 mmol/L (98-107); Glucose 79 mg/dl (70-99); Potassium 4.2 mmol/L (3.5-5.1); Sodium 144 mmol/L (135-145); eGFR > 60.00
== END ==
LOC: OLABP 11:59
PROVIDERS: ATTENDING PHYSICIAN Family Medicine
DX: N17.9 Acute kidney failure, unspecified (principal); F02.C2 Dementia in other diseases classified elsewhere, severe, with psychotic disturbance
CPT/HCPCS: 36415; 80048

== ENCOUNTER → 2024-06-21 10:35 | Outpatient (REF) | payer OTHER, MEDICARE, BC, SELFPAY ==
[2024-06-21 10:59] LABS: Hemoglobin 11.9 g/dL (12.0-16.0); Platelet Count 184 10^3/uL (130-400); Red Cell Dist. Width 13.2 % (11.5-14.5); White Blood Cell Count 8.3 10^3/uL (4.8-10.8)
== END ==
LOC: OLABP 10:35
PROVIDERS: ATTENDING PHYSICIAN Family Medicine
DX: N17.9 Acute kidney failure, unspecified (principal); F02.C2 Dementia in other diseases classified elsewhere, severe, with psychotic disturbance
CPT/HCPCS: 36415; 85027

== ENCOUNTER → 2024-07-11 15:23 | Outpatient (REF) | payer OTHER, MEDICARE, BC, SELFPAY ==
[2024-07-11 15:36] LABS: % Basophils 0.6 % (0-2); % Eosinophils 3.3 % (0-6); % Immature Granulocytes 0.2 % (0-0.5); % Lymphocytes 19.9 % (20.5-51.1); % Monocytes 10.1 % (1.7-9.3); % Neutrophils 65.9 % (42.2-75.2); Absolute Basophils 0.1 10^3/uL (0-0.2); Absolute Eosinophils 0.3 10^3/uL (0-0.7); Absolute Lymphocytes 1.6 10^3/uL (1.2-3.4); Absolute Monocytes 0.8 10^3/uL (0.1-0.6); Absolute Neutrophils 5.4 10^3/uL (1.4-6.5); Hematocrit 37.1 % (37.0-47.0); Hemoglobin 12.5 g/dL (12.0-16.0); Mean Corp Hgb Conc. 33.7 g/dL (33.0-37.0); Mean Corpuscular Volume 103.9 fL (81.0-99.0); Nucleated Red Blood Cells % 0 %; Platelet Count 182 10^3/uL (130-400); Red Blood Cell Count 3.57 10^6/uL (4.20-5.40); Red Cell Dist. Width 13.9 % (11.5-14.5); White Blood Cell Count 8.2 10^3/uL (4.8-10.8)
[2024-07-11 16:02] LABS: Blood Urea Nitrogen 19 mg/dl (7-17); Calcium 8.9 mg/dl (8.4-10.2); Carbon Dioxide 31 mmol/L (22-30); Chloride 108 mmol/L (98-107); Glucose 79 mg/dl (70-99); Potassium 4.1 mmol/L (3.5-5.1); Sodium 142 mmol/L (135-145); eGFR > 60.00
== END ==
LOC: OLABP 15:23
PROVIDERS: ATTENDING PHYSICIAN Family Medicine
DX: N17.9 Acute kidney failure, unspecified (principal); F02.C2 Dementia in other diseases classified elsewhere, severe, with psychotic disturbance
CPT/HCPCS: 36415; 80048; 85025

== ENCOUNTER 2024-10-11 11:21 | Emergency (ER) | payer MEDICARE, BC, SELFPAY ==
[2024-10-11 11:25] VITALS: BP 143/70
[2024-10-11 11:51] VITALS: BMI 25.8
--- NOTE | 2024-10-11 13:03 | ED.GENMED ---
History of Present Illness
General
Chief Complaint: Fall
Source: family (Daughter)
Exam Limitations: none
Time Seen by Provider: 10/11/24 11:44
History of Present Illness
History of Present Illness:
84-year-old female apparently fell out of her wheelchair. Was not witnessed but heard by the staff. Immediately got to her. She was not unconscious. Patient has no specific complaints. However moderate dementia. At baseline per daughter
Past History
Past History
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
ED Past Surgical History: Cardiac (cardiac ablation), Gynecological (hysterectomy) and Orthopedic (L rotator cuff, B/L foot surgery)
Social History
Tobacco: Non-smoker
Alcohol: None
Drug: None
Personal:
Living: penitentiary ([facility] unit)
Family History
Family History: Other (noncontributory)
Review of Systems
Review of Systems
Unable to obtain full review of systems at this time due to: dementia
All Other Systems: Not applicable
Phy Exam
Physical Exam
Physical Exam:
TRAUMA EXAM:
VITAL SIGNS: Vital signs reviewed, cooperative
DISTRESS: No active disease
EYES: Pupils reactive, no orbital trauma
NOSE: No deformity or epistaxis
FACE AND SCALP: No scalp or facial trauma, external canals no blood
NECK: Supple nontender
BACK: Back nontender, pelvis stable to compression
RESPIRATORY: No distress, breath sounds normal, no tender chest wall
CARDIAC: No murmur, pulses equal and strong
ABDOMEN: Soft nontender bowel sounds normal
SKIN: Skin intact no bleeding, color normal
EXTREMITIES: Nontender
NEUROLOGICAL: Alert, grossly nonfocal
PSYCH: Mood affect normal
. Hard of hearing grossly nonfocal
Course
Orders/Labs/Results
Orders:
Orders
10/11/24 11:50
CT Cervical Spine W/o Iv Contr Urgent
Comment:
Reason For Exam: Trauma
CT Head W/o Iv Contrast Urgent
Comment:
Reason For Exam: Trauma
Vital Signs
Initial and Last Documented VS:
Initial Vital Signs
Temp Pulse Resp BP Pulse Ox
97.8 F 58 20 143/70 96
10/11/24 11:25 10/11/24 11:10/11/24 11:10/11/24 11:10/11/24 11:25
Last Documented Vital Signs
Temp Pulse Resp BP Pulse Ox
97.8 F 58 20 143/70 96
10/11/24 11:25 10/11/24 11:10/11/24 11:10/11/24 11:10/11/24 11:25
MDM/Problems Addressed
Differential Diagnosis Includes:
Medically stable. No acute findings on exam. CT is negative. Not describing a syncopal episode. Discharged to follow-up
*Radiology
Radiology exam reviewed: radiology read reviewed (No acute findings)
*Pulse Oximetry
SaO2: 96
Oxygen Mode of Delivery: Room air
Patient hypoxic: no
Comment: 96
*Critical Care Note
Total Time (30-74mins, 75-104mins- exclusive of procedures): Not Applicable
Data Reviewed
Review of Other/Old Records Reveals: Labs, Records and Testing
ED Attending Note
-
Portions of this chart may have been created with voice recognition software.� Occasional wrong word or��sound alike� substitutions may have occurred due to the inherent limitations of voice recognition software.
Discharge Plan
Departure
Patient Disposition: Home (Routine Discharge)
Date of Disposition: 10/11/24
Time of Disposition: 13:04
Patient with high blood pressure during this ER visit?: Yes
Discharge Problem:
Evaluation after fall, Minor head injury
Instructions: Head Injury in Adults (DC), Preventing falls in adults, BLOOD PRESSURE
Prescriptions:
No Action
quetiapine 25 mg Tablet
12.5 mg PO DAILYPRN PRN (Reason: agitation)
escitalopram oxalate 20 mg tablet
10 mg PO DAILY
multivitamin with folic acid [Therems Multivitamin] 400 mcg Tablet
1 tab PO DAILY
apixaban 2.5 mg Tablet
2.5 mg PO BID
hydrocortisone [Preparation H Hydrocortisone] 1 % Cream
1 applic TOPICAL BIDPRN PRN (Reason: hemmorhoid)
aspirin 81 mg Tablet,Chewable
81 mg PO DAILY
quetiapine 25 mg Tablet
50 mg PO HS 30 Days Qty: 0 0RF
quetiapine 25 mg Tablet
25 mg PO DAILY 30 Days Qty: 0 0RF
tramadol 50 MG tablet
50 mg PO Q8HPRN PRN (Reason: moderate pain) Qty: 4 0RF
acetaminophen 325 mg Tablet
650 mg PO Q4HPRN PRN (Reason: mild pain/ARIAS/temp> 100.4F) Qty: 0 0RF
polyethylene glycol 3350 17 gram Powder In Packet
17 g PO DAILY 14 Days Qty: 0 0RF
metoprolol tartrate 25 mg tablet
25 mg PO BID Qty: 60 0RF
Referrals:
Link Mcgee MD [Family Provider, Family Practice] - Follow up in 2-3 days
Interventions
Interventions:
*General Assessment Last Done: 10/11/24 11:25
ED-Musculoskeletal Assessment Last Done: 10/11/24 11:45
ED- Neurological Assessment Last Done: 10/11/24 11:45
ED-Skin Assessment Last Done: 10/11/24 11:45
Discharge Date and Time
Print Language: FAROESE
== END 2024-10-11 13:18 | disposition home or self-care (01) ==
LOC: EMR 11:21
PROVIDERS: EMERGENCY PHYSICIAN Emergency Medicine; FAMILY PHYSICIAN Family Medicine
DX: S09.90XA Unspecified injury of head, initial encounter (principal); W05.0XXA Fall from non-moving wheelchair, initial encounter; F03.B0 Unspecified dementia, moderate, without behavioral disturbance, psychotic disturbance, mood disturbance, and anxiety; I10 Essential (primary) hypertension
CPT/HCPCS: 99284; 70450; 72125

== ENCOUNTER 2024-10-22 18:54 | Emergency (ER) | payer MEDICARE, BC, SELFPAY ==
[2024-10-22 18:55] VITALS: BP 167/84
[2024-10-22 19:06] VITALS: BMI 25.2
[2024-10-22 19:10] LABS: Hematocrit 37.0 % (37.0-47.0); Hemoglobin 12.4 g/dL (12.0-16.0); Mean Corp Hgb Conc. 33.5 g/dL (33.0-37.0); Mean Corpuscular Volume 107.6 fL (81.0-99.0); Nucleated Red Blood Cells % 0 %; Platelet Count 188 10^3/uL (130-400); Red Cell Dist. Width 12.3 % (11.5-14.5)
--- NOTE | 2024-10-22 19:19 | EDRN ---
Pt's daughter says she sees nothing wrong with her mother 'in fact she is better than usual.' Daughter asked if she can take her back before pt falls asleep so it does not disrupt her. Clau VARGHESE at bedside talking with pt's daughter. Pt had her
nighttime medications lighter captain.
--- NOTE | 2024-10-22 19:21 | ED.GENMED ---
History of Present Illness
General
Chief Complaint: Change in Mental Status
Source: patient, family, ambulance crew and residential
Exam Limitations: dementia
Time Seen by Provider: 10/22/24 19:00
Nursing documentation reviewed up to this point in time: agreed with
History of Present Illness
History of Present Illness:
84-year-old female past medical history of dementia A-fib, hypertension presenting to the emergency department after she seems somewhat lethargic compared to her normal self at the nursing facility was sent directly to the ER. They also thought
that she seemed to be using her right side slightly less than the left for short period of time. The patient's family claims that she was acting normally up until few hours ago today EMS claims that her neuroexam was normal on their arrival and the
daughter is also at bedside claiming that she is at her normal baseline at this point as well. She has no specific complaints.
Past History
Past History
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
ED Past Surgical History: Cardiac (cardiac ablation), Gynecological (hysterectomy) and Orthopedic (L rotator cuff, B/L foot surgery)
Social History
Tobacco: Non-smoker
Alcohol: None
Drug: None
Personal:
Living: residential ([facility] unit)
Family History
Family History: Other (noncontributory)
Review of Systems
Review of Systems
Allergies reviewed?: Yes
All Other Systems: ROS reviewed and negative except as documented in HPI and ROS
Phy Exam
Physical Exam
Physical Exam:
GENERAL: Alert , in no apparent distress
EYE: pupils equal and reactive
NECK: Supple, no significant adenopathy.
ENT: o/p clr, mmm.
CARDIAC: Regular rate and rhythm .
LUNGS: Clear breath sounds bilaterally, no acute respiratory distress, no wheezes/rales/rhonchi
ABDOMEN: Soft, without focal tenderness, no r/g, no cvat
NEUROLOGICAL: Patient is alert she is oriented to place and person but not time she thinks that it is the early 1900s. She does know she is at [facility] she does her own birthday and name she is answering basic directed questioning
SKIN: Warm and dry, skin intact.
MUSCULOSKELETAL: No edema, well perfused.
PSYCH: Normal and appropriate interaction.
Course
Orders/Labs/Results
Orders:
Orders
10/22/24 19:04
Complete Blood Count/With Diff Urgent
Comprehensive Metabolic Panel Urgent
10/22/24 19:16
EKG [Electrocardiogram (*1)] Urgent
Reason for Study: Fatigue / Weakness
Abnormal Lab Results
10/22/24
19:04
RBC 3.44 L 10^6/uL
(4.20-5.40)
MCV 107.6 H fL
(81.0-99.0)
MCH 36.0 H pg
(27.0-31.0)
Absolute Monos (auto) 0.9 H 10^3/uL
(0.1-0.6)
Monocytes % 11.4 H %
(1.7-9.3)
BUN 32 H mg/dl
(7-17)
10/22/24 19:04
10/22/24 19:04
Vital Signs
Initial and Last Documented VS:
Initial Vital Signs
Temp Pulse Resp BP Pulse Ox
97.9 F 68 18 167/84 97
10/22/24 18:55 10/22/24 18:55 10/22/24 18:55 10/22/24 18:55 10/22/24 18:55
Last Documented Vital Signs
Temp Pulse Resp BP Pulse Ox
97.9 F 73 17 167/84 96
10/22/24 18:55 10/22/24 19:33 10/22/24 19:33 10/22/24 19:33 10/22/24 19:30
MDM/Problems Addressed
MDM/Problems Addressed:
84-year-old female presenting from nursing facility with concerns of lethargy at the nursing facility. Here she is alert and interactive and at her baseline according to the daughter. She is answering questions directly and denies any current
symptoms. She has a normal neurologic evaluation. Initial labs were drawn and a CT scan was ordered of the head however the daughter came and that she was acting normally and they are not seeking any more aggressive assessment at this point. She
understands the risk and benefit and she has the medical power of reimbursement analyst. I feel this is reasonable in the circumstance she was advised to return for any progressive or worsening symptoms.
*Pulse Oximetry
SaO2: 97
Oxygen Mode of Delivery: Room air
Patient hypoxic: no (96)
*Critical Care Note
Total Time (30-74mins, 75-104mins- exclusive of procedures): Not Applicable
ED Attending Note
-
Portions of this chart may have been created with voice recognition software.� Occasional wrong word or��sound alike� substitutions may have occurred due to the inherent limitations of voice recognition software.
Discharge Plan
Departure
Patient Disposition: Home (Routine Discharge)
Date of Disposition: 10/22/24
Time of Disposition: 19:21
Patient with high blood pressure during this ER visit?: No
Condition: Good
Covid-19: Not Applicable
Discharge Problem:
AMS (altered mental status)
Instructions: Altered Mental Status (DC)
Prescriptions:
No Action
escitalopram oxalate 20 mg tablet
10 mg PO DAILY
hydrocortisone [Preparation H Hydrocortisone] 1 % Cream
1 applic TOPICAL BIDPRN PRN (Reason: hemmorhoid)
aspirin 81 mg Tablet,Chewable
81 mg PO DAILY
quetiapine 25 mg Tablet
50 mg PO HS 30 Days Qty: 0 0RF
quetiapine 25 mg Tablet
25 mg PO DAILY 30 Days Qty: 0 0RF
tramadol 50 MG tablet
50 mg PO Q8HPRN PRN (Reason: moderate pain) Qty: 4 0RF
metoprolol tartrate 25 mg tablet
25 mg PO BID Qty: 60 0RF
multivitamin [Daily-Viji] Tablet
1 tab PO DAILY
acetaminophen 500 mg Tablet
1,000 mg PO TID
magnesium hydroxide [Milk of Magnesia] 400 mg/5 mL Suspension
30 ml PO DAILY PRN (Reason: constipation day 4)
bisacodyl 10 mg Suppository
10 mg PA DAILY PRN (Reason: if MOM ineffective on 5th day)
Enema 19-7 gram/118 mL Enema
118 ml PA DAILY PRN (Reason: if supp ineffective day 6)
pantoprazole [Protonix] [address] For Susp In Packet
40 mg PO DAILY
Referrals:
Ishan Avelar MD [Family Provider, Family Practice]
Activity Restrictions/Additional Instructions:
Kaylah came to the emergency department today after an episode of altered mental status. Here she had a reassuring assessment. Please have her return if any symptoms progress or worsen.
Interventions
Interventions:
*Risk Screen - Suicide Last Done: 10/22/24 18:55
*General Assessment Last Done: 10/22/24 18:55
*Neglect/Abuse Screening Last Done: 10/22/24 18:55
*ED- Fall Risk Assessment Last Done: 10/22/24 19:07
ED- Pulmonary Assessment Last Done: 10/22/24 19:09
ED- Neurological Assessment Last Done: 10/22/24 19:09
ED- Cardiac Assessment Last Done: 10/22/24 19:09
Discharge Date and Time
Print Language: MALAWIAN
[2024-10-22 19:24] LABS: ALT (SGPT) 11 U/L (0-35); AST (SGOT) 24 U/L (14-36); Albumin 4.1 g/dl (3.5-5.0); Alkaline Phosphatase 88 U/L (38-126); Blood Urea Nitrogen 32 mg/dl (7-17); Calcium 9.6 mg/dl (8.4-10.2); Carbon Dioxide 30 mmol/L (22-30); Chloride 105 mmol/L (98-107); Estimated Creatinine Clearance 44 ml/min; Glucose 84 mg/dl (70-99); Potassium 4.0 mmol/L (3.5-5.1); Sodium 139 mmol/L (135-145); Total Protein 6.9 g/dl (6.3-8.2); eGFR > 60.00
[2024-10-22 19:33] VITALS: BP 167/84
== END 2024-10-22 19:45 | disposition home or self-care (01) ==
LOC: EMR 18:54
PROVIDERS: Physician Assistant; EMERGENCY PHYSICIAN Emergency Medicine; FAMILY PHYSICIAN Family Medicine
DX: R41.82 Altered mental status, unspecified (principal); F03.90 Unspecified dementia, unspecified severity, without behavioral disturbance, psychotic disturbance, mood disturbance, and anxiety; I10 Essential (primary) hypertension; I48.91 Unspecified atrial fibrillation; Z79.01 Long term (current) use of anticoagulants
CPT/HCPCS: 99283; 80053; 85025